=== PATIENT | female | born 1965 | race Caucasian/White ===

== ENCOUNTER → 2017-01-31 | Outpatient (CLI) | payer BC ==
--- NOTE | 2017-02-01 14:54 | MAMMOGRAPHY REPORT ---
ULTRASOUND OF BOTH BREASTS: 01/31/2017 CLINICAL HISTORY: Follow-up bilateral ultrasound for multiple bilateral hypoechoic solid versus cyst ic benign-appearing masses in the breasts seen on prior whole breast screening ultrasound. COMPARISON: Comparison is made to exams dated: 08/02/2016 ultrasound, 07/19/2016 ultrasound, 07/19/20 16 mammogram, 05/05/2011 mammogram - [facility], and 05/23/2008. FINDINGS: Real-time high-resolution ultrasound was performed in each breast, with particular attent ion to the left 1:00, 3:00, 4:00, 6:00, 8:00 axes, and also the right 12:00, 2:00, 7:00 and 11:00 ax es. In the left 1:00 breast, 1 cm from the nipple, there is a lobulated hypoechoic solid versus cys tic mass measuring 5.1 x 4.0 x 7.4 mm, this was previously labeled 12:00 and measured 5.3 x 3.0 x 5. 3 mm. In the 3:00 periareolar left breast, a predominantly cystic anechoic mass with internal nonva scular septations measures 5.0 x 5.4 x 8.5 mm, previously 4.3 x 5.7 x 5.8 mm. A benign anechoic cys t is identified in the 4:00 periareolar left breast measuring 5.2 mm. Another lobulated anechoic be nign simple cyst is seen in the 6:00 periareolar left breast measuring 5.5 mm. There is a lobulated hypoechoic possible cyst cluster in the 8:00 periareolar left breast measuring 9.0 x 4.5 x 7.5 mm, previously measured 9.4 x 3.8 x 8.5 mm. Another possible cyst cluster in the 12:00 left breast, 1 c m from the nipple, measuring 6.8 x 6.0 x 9.4 mm. This was not definitely seen on the prior exam. In the right breast 11 to 12:00 axis, 2 cm from the nipple (previously labeled 11:00), there is a lo bulated predominantly anechoic cystic appearing mass measuring 9.0 x 4.6 x 5.0 mm, this previously m easured 8.8 x 4.9 x 8.8 mm. Another predominantly anechoic cyst with thin internal nonvascular sept ations is seen in the 12:00 periareolar right breast measuring 5.0 x 2.7 x 4.7 mm, previously 4.8 x 2.9 x 5.5 mm. A lobulated oval isoechoic and hypoechoic solid versus cystic mass in the 2:00 right breast, 1 cm from the nipple measures 6.2 x 2.6 x 8.2 mm, previously 5.1 x 3.5 x 10.2 mm. 2 adjacen t probable cyst clusters in the 7:00 right breast, 2 cm from the nipple are again seen. The first m easures 7.1 x 3.4 x 6.8 mm, and the second is smaller in size measuring 4.9 mm. IMPRESSION: ACR-BI-RADS CATEGORY 3: PROBABLY BENIGN - FOLLOW-UP RECOMMENDED 1. Overall, there are multiple anechoic and hypoechoic benign appearing masses scattered throughout the breasts. All of the masses are stable to decreased in size except for a new mass visualized in the 12:00 left breast, 1 cm from the nipple. Although this appearance is similar to the other kartik gn appearing solid versus cystic masses scattered bilaterally, a very short follow-up targeted ultra sound is recommended in 3 months. The patient is also reporting focal pain in the right breast. Th erefore, bilateral mammograms including tomosynthesis images and repeat targeted ultrasound in the l eft 12:00 breast is recommended. The other benign appearing masses within each breast, detailed abo ve can also be followed at that time (30 minutes). These results and recommendations were discussed with the patient at the time of the exam. Keely Yañez M.D. ay/:02/01/2017 13:51:58 Mathematics Technician: Dr. Keely Yañez, [facility] letter sent: Follow Up Recommended 3 BI-RADS Code: ACR-BI-RADS Category 3: Probably Benign
== END ==
LOC: C.MAMM 09:04
PROVIDERS: ATTEND Obstetrics & Gynecology
DX: N63 Unspecified lump in breast (principal)

== ENCOUNTER → 2017-05-09 | Outpatient (CLI) | payer BC ==
--- NOTE | 2017-05-15 13:49 | MAMMOGRAPHY REPORT ---
BILATERAL DIGITAL DIAGNOSTIC MAMMOGRAM TOMOSYNTHESIS WITH CAD AND TARGETED BILATERAL ULTRASOUND: 05/09 CLINICAL HISTORY: Follow-up of probably benign hypoechoic solid versus cystic masses in both breasts on prior ultrasound, particular attention to 12:00 axis and in the area of a newly visualized benign appearing mass. Also time of annual bilateral screening mammogram. TECHNIQUE: Bilateral breast tomosynthesis in addition to standard 2D mammography was performed. Curre nt study was also evaluated with a Computer Aided Detection (CAD) system. COMPARISON: Comparison is made to exams dated: 01/31/2017 ultrasound, 07/19/2016 ultrasound, 05/05/2011 mammogram, 08/02/2016 ultrasound - [facility], and 05/23/2008. BREAST COMPOSITION: The tissue of both breasts is heterogeneously dense, which may obscure small mas ses. FINDINGS: The breast parenchymal pattern is similar to prior mammograms. There are stable circumscri bed sub-centimeter masses in both breasts, best identified on the tomosynthesis images, not significa ntly changed compared to prior mammograms. There is a benign rim calcification in the medial right b reast. No suspicious spiculated or irregular mass, architectural distortion or cluster of new, suspi cious microcalcifications is seen. Targeted ultrasound was performed in both breasts. In the 12:00 left breast 1 cm from the nipple, th ere is a lobulated hypoechoic mass with tubular parallel anechoic spaces surrounding. This appears l ess prominent comparing to the prior ultrasound from January 2017 and measures 5.3 x 4.7 x 5.5 mm, previo usly 6.8 x 6.0 x 9.4 mm. Some of the differences in measurements may be contributed to measuring dodie hnique and although this is probably benign, another short interval follow-up targeted ultrasound is recommended to ensure longer stability. Other scattered cysts and benign-appearing complicated cysts and/or solid masses are seen in the left breast in particular within the 1:00 axis, 1 cm from the ni pple, there is a cyst with internal nonvascular septations measuring 6.2 x 3.4 x 6.0 mm. Another, ga nickolas cyst in the 3:00 periareolar left breast measures 5.4 x 4.9 x 7.4 mm. In anechoic predominantly cystic mass in the 4:00 periareolar left breast measures 5 mm. Another predominantly anechoic cyst i n the 6:00 periareolar left breast measures 6.1 x 3.4 x 4.8 mm. A parallel hypoechoic cystic mass wi th internal septations in the 8:00 periareolar left breast measures 7.3 x 2.8 x 8.1 mm. In the right 12:00 breast, 3 cm from the nipple, there is a complicated cyst with thin internal nonva scular septations measuring 9.1 x 4.1 x 5.9 mm. In anechoic cyst in the 12:[address] measures 4.9 x 3.0 x 5.1 mm. Another probable, gated cyst in the 2:00 periareolar right breast me asures 3.2 x 4.2 x 10.8 mm. A cluster of microcysts in the 7:00 right breast, 1 cm from the nipple m easures 8.6 x 3.2 x 6.4 mm. Another cyst with thin internal nonvascular septations in the 11:00 righ t breast, 2 cm from the nipple, measures 4.6 x 2.7 x 6.3 mm. None of the complicated cysts in either breast appears significantly increased in size compared to pr ior ultrasounds. Given the complicated nature, another short interval follow-up bilateral ultrasound is recommended in 6 month. IMPRESSION: ACR-BI-RADS CATEGORY 3: PROBABLY BENIGN, TARGETED ULTRASOUND ACR-BI-RADS CATEGORY 3: PRO BABLY BENIGN 1. Stable bilateral mammograms, without mammographic evidence of malignancy. A 1 year screening claudia mogram is recommended. 2. Decreased size and visual prominence of a hypoechoic solid versus solid and cystic mass in the 12 :00 left breast, currently measuring 5.3 x 4.7 x 5.5 mm, which could represent a cyst cluster or comp licated cyst. Another short interval follow-up targeted ultrasound is recommended to ensure longer s tability in 6 months. 3. Overall stable size and appearance of benign-appearing complicated cysts and/or solid masses scat tered in both breasts, which appears similar to prior ultrasounds. Another six-month follow-up bilat era whole breast ultrasound (30 minutes), with particular attention to the left 12:00, 1:00, 3:00, 4 :00, 6:00, 8:00 and right 12:00, 2:00, 7:00 and 11:00 axes is recommended. These results and recommendations were discussed with the patient at the time of the exam. Approximately 10% of breast cancers are not detected with mammography. A negative mammographic report should not delay biopsy if a clinically suggestive mass is present. Keely Yañez M.D. ay/:05/15/2017 08:16:04 Electromechanical Equipment Assembler: Shelley REESE(Ozzie)(Anabel), [facility] letter sent: Follow Up Recommended 3 BI-RADS Code: ACR-BI-RADS Category 3: Probably Benign Ultrasound BI-RADS: ACR-BI-RADS Category 3: Pr obably Benign
== END | disposition home or self-care (01) ==
LOC: C.MAMM 09:03
PROVIDERS: ATTEND Obstetrics & Gynecology
DX: N63 Unspecified lump in breast (principal)

== ENCOUNTER → 2017-11-28 | Outpatient (CLI) | payer OTHER ==
--- NOTE | 2017-11-29 15:37 | MAMMOGRAPHY REPORT ---
ULTRASOUND OF BOTH BREASTS: 11/28/2017 CLINICAL HISTORY: Follow-up bilateral whole breast ultrasound to ensure stability of multiple cysts a nd benign-appearing masses scattered in both breasts. COMPARISON: Comparison is made to exams dated: 05/09/2017 ultrasound, 01/31/2017 ultrasound, 6 ultrasound, 07/19/2016 ultrasound, 07/19/2016 mammogram, and 05/05/2011 mammogram - [facility]. FINDINGS: Real-time high resolution sonographic evaluation was performed throughout each breast. The breast parenchymal echotexture is heterogeneousdense. In the 12:00 left breast, 1 cm from the nipp le, there is a lobulated and circumscribed hypoechoic and anechoic solid versus cystic mass, measurin g 6.0 x 3.7 x 7.6 mm. In the 1:00 left breast a benign, morphologically normal intramammary lymph no de is identified. In the 3:00 left breast, 1 cm from the nipple, there is a predominantly anechoic c yst with thin internal nonvascular septations, measuring 6.4 x 4.9 x 11.8 mm. An isoechoic solid gala konstantin cystic mass with posterior acoustic enhancement and circumscribed borders is seen in the 3:00 per iareolar left breast measuring 4.3 x 3.1 x 4.5 mm. There is another probable complicated cyst that i s predominantly anechoic with a thin internal nonvascular septation in the 4:[address] measuring 4.7 x 4.0 x 6.7 mm. A predominantly anechoic cyst with multiple internal nonvascular se ptations and/or debris in the 5:00 to 6:00 periareolar left breast measures 10.7 x 3.2 x 6.3 mm. In the 9:00 periareolar left breast there is a hypoechoic solid versus cystic benign-appearing mass vers us cystic cluster measuring 8.6 x 4.3 x 6.1 mm. In the right 12:00 axis, 3 cm from the nipple, there is a predominantly anechoic cyst with internal d ebris and nonvascular septations measuring 10.7 x 3.7 x 6.0 mm. Another predominantly anechoic cyst in the 12:00 periareolar right breast measures 4.9 x 3.2 x 5.0 mm. A mixed isoechoic and anechoic cy st in the 2:00 periareolar right breast measures 3.5 x 4.9 x 4.4 mm. In the 3:00 right breast, 3 cm from the nipple, there is a small cluster of cysts versus cyst with thin internal nonvascular septati ons measuring 6.0 x 2.9 x 3.8 mm. Another probable microcyst cluster in the 7:00 right breast, 1 cm from the nipple measures 8.6 x 3.5 x 7.5 mm. There is an anechoic benign simple cyst in the 9:00 rig ht breast, 1 cm from the nipple, measuring 8.7 x 3.8 x 7.5 mm. An adjacent cyst cluster versus compl icated cyst in the 9:00 axis, 1 cm from the nipple measures 7.5 x 6.8 mm. All of the above findings have a probably benign appearance and most likely represent cysts, microcys tic clusters and complicated cysts. Although some of the previously observed cysts are no longer see n, there is a newly visualized probable microcystic cluster in the 3:00 periareolar left breast, for which a repeat targeted ultrasound in 6 months, at the time of annual bilateral mammography is recomm ended. At that time, the other probable cysts clusters can be reassessed as that will marked the 2 y ear follow-up point to confirm benignity of many of the above described masses. IMPRESSION: ACR-BI-RADS CATEGORY 3: PROBABLY BENIGN - FOLLOW-UP RECOMMENDED 1. There are multiple bilateral simp cysts, complicated cysts, microcyst clusters and benign-appeari ngle solid versus cystic masses in both breasts on ultrasound, most compatible with fibrocystic regan e. A six-month follow-up bilateral ultrasound is recommended to ensure at least 2 years of stability to confirm benignity (30 minutes). 2. Annual bilateral screening tomosynthesis mammography will be due at that time. 3. There is a newly visualized benign-appearing isoechoic and anechoic solid versus cystic mass in t he 3:00 periareolar left breast that has a similar appearance to the other bilateral sonographic mass es. However, given that it is newly visualized with ultrasound, particular attention with targeted u ltrasound is recommended at the next six-month follow-up. These results and recommendations were discussed with the patient at the time of the exam. She is te ntatively scheduled a follow-up appointment prior to leaving the department. Keely Yañez M.D. ay/:11/28/2017 20:33:20 Machine Setter And Repairer: Arlen EDWARD)(Anabel), [facility] letter sent: Follow Up Recommended 3 BI-RADS Code: ACR-BI-RADS Category 3: Probably Benign
== END | disposition home or self-care (01) ==
LOC: C.MAMM 08:23
PROVIDERS: ATTEND Obstetrics & Gynecology
DX: N60.11 Diffuse cystic mastopathy of right breast (principal); N60.12 Diffuse cystic mastopathy of left breast; N63.10 Unspecified lump in the right breast, unspecified quadrant; N63.20 Unspecified lump in the left breast, unspecified quadrant

== ENCOUNTER 2020-11-30 10:43 | Inpatient (IN) ==
[2020-11-30] MEDS ORDERED: SODIUM CHLORIDE 0.9% 1000ML 1,000 ML IV ONE (11:15)
[2020-11-30] MEDS ORDERED: DEXAMETHASONE SOD INJ 10 MG/ML VIAL IV ONE (11:15)
[2020-11-30] MEDS ORDERED: ACETAMINOPHEN 325 MG TAB PO STA (11:15)
--- NOTE | 2020-11-30 11:19 | Emergency Department Note ---
Impression & Plan Pneumonia due to COVID-19 virus, Hypoxia, Multifocal pneumonia, Electrolyte abnormality ED Provider Note NAME: SANDEEP ECHAVARRIA AGE: 54 SEX: F : 1965 ARRIVES VIA: Walk-In INFORMANT: Patient ED PROVIDER(S): Los Rodgers DO CHIEF COMPLAINT: weak and shortness of breath HPI: Patient is a 54-year-old female who presents ER short of breath. She tested positive for Covid over a week ago. Her symptoms started just under 2 weeks ago with weakness and loss of taste and smell. She admits to shortness of breath which has been getting worse. She denies any belly pain but does admit to some diarrhea. Denies any dysuria, urgency or frequency. No other exace rbating or remitting factors. She has been taking care of her father who she also brought in today with a similar symptoms. She also admits to persistent fevers high as of 104. ROS: See above HPI for pertinent positives & negatives. A total of 10 systems reviewed and were otherwise negative. PAST MEDICAL HISTORY:See Below PAST SURGICAL HISTORY:See Below FAMILY HISTORY:See Below SOCIAL HISTORY:See Below HOME MEDICATIONS:See Below ALLERGIES:See Below VITALS:See Below PHYSICAL EXAMINATION: GENERAL: Sitting up in bed, alert, disheveled on 4 L nasal cannula EYE EXAM: normal conjunctiva. OROPHARYNX: no exudate, no erythema, lips, buccal mucosa, and tongue normal and mucous membranes are moist NECK: supple, no nuchal rigidity, no adenopathy, non-tender LUNGS: Clear to auscultation. Normal chest wall mechanics HEART: Tachycardic, S1 normal and S2 normal ABDOMEN: abdomen soft, non-tender, normo-active bowel sounds, no masses, no rebound or guarding. BACK: Back is symmetrical on inspection and there is no deformity, no midline tenderness, no CVA tenderness. SKIN: no rashes and no bruising UPPER EXTREMITIES: upper extremities are grossly normal. LOWER EXTREMITIES: No pitting edema. Calves are equal bilateral NEURO EXAM: Normal sensorium, cranial nerves II-XII grossly intact, normal speech, no gross weakness of arms, no gross weakness of legs. MEDICAL DECISION MAKING: Patient is a 54-year-old female with no significant past medical history the presents the ER Covid positive short of breath feeling weak and having fevers. Upon arrival she was found to be hypoxic at 82% on room air. She was placed on 3 to 4 L nasal cannula and remained on this throughout her stay in the ER. IV was established blood work was obtained. Labs showed a mild leukocytosis of 12,000 and a thrombocytosis of 600. D-dimer was elevated and consequently CT angio was performed and showed a multifocal pneumonia. BMP with mild hypokalemia. LFTs bilirubin and troponin was negative. Pro-Duran was slightly elevated 1.1. Patient was Covid positive. Chest x-ray confirmed infiltrates. Patient was given fluids, oxygen and steroids. Patient was updated bedside admitted to the hospitalist for further work-up. Triage Nursing notes reviewed. Limited review of prior medical records performed Vital Signs: reviewed and remarkable for tachycardic and hypoxic Differential diagnosis: Differential diagnoses includes but is not limited to pneumonia, bronchitis, COPD/Asthma exacerbation, pneumothorax, pulmonary embolism, congestive heart failure, acute coronary syndrome ER treatment provided: See below Diagnostics interpreted by me: ECG: Sinus tachycardia rate of 112 Normal axis No PVCs QTC 447 Cardiac Monitoring: An order was placed for continuous cardiac monitoring. The monitor shows a rate of 121 with sinus rhythm. Laboratory studies: As stated above and show below. Imaging studies: CT Angio of the chest shows multifocal infiltrates Portable AP upright 1 view of the chest shows multiple focal infiltrates Consultation(s): Discussed with Dr. Alan Hui for further evaluation Procedures: none Critical Care: I have personally spent 31 minutes of critical care time in the direct management of this patient. This includes bedside care, interpretation of diagnostic studies, and testing, discussion with consultants, patient, and family members, and other required patient management activities. This 31 minutes is in excess of all separately billable procedures. Past Med/Surg History Medical History (Updated 11/30/20 @ 16:42 by Los Rodgers DO) No pertinent past medical history Surgical History (Updated 11/30/20 @ 15:00 by Alan Hui MD) History of delivery History of tonsillectomy Social History (Updated 11/30/20 @ 15:00 by Alan Hui MD) Smoking Status: Never smoker Hx Alcohol Use: No Preferred Language: Trinidadian Feels Safe at Home: Yes Allergies Allergies Allergy/AdvReac Type Severity Reaction Status Date / Time No Known Allergies Allergy Verified 11/30/20 11:17 Home Meds Home Medications Medication Instructions Recorded Confirmed C-[id number]-[id number] 2 tab PO UD 11/30/20 11/30/20 [Immune Support Complex] acetaminophen [Tylenol Extra 500 mg PO Q6H PRN 11/30/20 11/30/20 Strength] Results & Data (ED) Vital Signs Vital Signs - 24 hr 11/30/20 10:50 11/30/20 11:00 11/30/20 11:06 Temperature 37.5 C Temperature Source Temporal Artery Scan Pulse Rate 130 H 113 H Pulse Rate from SpO2 Sensor 113 H Respiratory Rate 20 30 H Respiratory Effort / Characteristics Non-Labored Respiratory Depth Normal Respiratory Pattern Regular Blood Pressure 172/101 H 163/97 H Blood Pressure Mean 124 119 Blood Pressure Position Sitting Pulse Oximetry 82 L 84 L 95 Oxygen Delivery Method Room Air Room Air Nasal Cannula Oxygen Flow Rate 4 Sepsis Recent Fever Within 48 Hours Yes Sepsis New/Unexplained Change in Mental Status No Sepsis Action Taken by Nursing No Action Required 11/30/20 11:11 11/30/20 11:12 11/30/20 11:24 Temperature 37.5 C Temperature Source Oral Pulse Rate 113 H Pulse Rate from SpO2 Sensor 114 H Respiratory Rate 27 H Respiratory Effort / Characteristics Respiratory Depth Respiratory Pattern Blood Pressure 151/89 H Blood Pressure Mean 109 Blood Pressure Position Pulse Oximetry 96 96 Oxygen Delivery Method Nasal Cannula Nasal Cannula Oxygen Flow Rate 4 4 Sepsis Recent Fever Within 48 Hours Sepsis New/Unexplained Change in Mental Status Sepsis Action Taken by Nursing 11/30/20 11:31 11/30/20 12:00 11/30/20 12:30 Temperature Temperature Source Pulse Rate 108 H 102 H 98 H Pulse Rate from SpO2 Sensor 104 H 99 H Respiratory Rate 28 H 26 H 26 H Respiratory Effort / Characteristics Respiratory Depth Respiratory Pattern Blood Pressure 158/93 H 149/77 H 143/88 H Blood Pressure Mean 114 101 106 Blood Pressure Position Pulse Oximetry 93 94 Oxygen Delivery Method Nasal Cannula Nasal Cannula Oxygen Flow Rate 4 4 Sepsis Recent Fever Within 48 Hours Sepsis New/Unexplained Change in Mental Status Sepsis Action Taken by Nursing 11/30/20 13:21 11/30/20 13:30 Temperature Temperature Source Pulse Rate Pulse Rate from SpO2 Sensor 97 H 99 H Respiratory Rate 22 24 Respiratory Effort / Characteristics Respiratory Depth Respiratory Pattern Blood Pressure 156/88 H 169/92 H Blood Pressure Mean 110 117 Blood Pressure Position Pulse Oximetry 95 92 Oxygen Delivery Method Nasal Cannula Nasal Cannula Oxygen Flow Rate 4 4 Sepsis Recent Fever Within 48 Hours Sepsis New/Unexplained Change in Mental Status Sepsis Action Taken by Nursing Laboratory Data Result diagrams: 11/30/20 11:30 11/30/20 11:30 Lab Results 11/30/20 11/30/20 11/30/20 Range/Units 11:30 11:30 11:30 WBC 12.74 H (4.8-10.8) K/uL RBC 4.29 (4.2-5.4) M/uL Hgb 13.2 (12.0-16.0) g/dL Hct 38.0 (37-47) % MCV 88.6 (80-100) fL MCH 30.8 (25-34) pg MCHC 34.7 (32-36) g/dL RDW Std Deviation 41.2 (36.4-46.3) fL RDW Coeff of [place] 12.9 (11.5-14.5) % Plt Count 633 H (130-400) K/uL MPV 9.7 (7.4-10.4) fL Immature Gran % (Auto) 0.8 % Neut % (Auto) 81.9 % Lymph % (Auto) 12.0 % [place] % (Auto) 5.2 % Eos % (Auto) 0.0 % Baso % (Auto) 0.1 % Neut # (Auto) 10.44 H (1.4-6.5) K/uL Lymph # (Auto) 1.53 (1.2-3.4) K/uL [place] # (Auto) 0.66 H (0.11-0.59) K/uL Eos # (Auto) 0.00 (0-0.5) K/uL Baso # (Auto) 0.01 (0-0.2) K/uL Immature Gran # (Auto) 0.10 H (0.00-0.02) K/uL D-Dimer 3830 H* (0-500) ug/L FEU Sodium 135 L (136-145) mmol/L Potassium 3.2 L (3.5-5.1) mmol/L Chloride 97 L (98-107) mmol/L Carbon Dioxide 23 (21-32) mmol/L Anion Gap 15.0 H (3-11) BUN 9 (7-18) mg/dl Creatinine 0.72 (0.6-1.2) mg/dl Est Cr Clr Drug Dosing 71.0 ml/min Est GFR ( Amer) 108.5 Est GFR (Non-Af Amer) 93.6 BUN/Creatinine Ratio 12.1 (10-20) Glucose 112 H (70-99) mg/dl Calcium 9.1 (8.5-10.1) mg/dl Total Bilirubin 0.7 (0.2-1) mg/dl AST 42 H (15-37) U/L ALT 14 (12-78) U/L Alkaline Phosphatase 84 (45-117) U/L Troponin I < 0.015 (0-0.045) ng/ml Total Protein 8.7 H (6.4-8.2) gm/dl Albumin 2.5 L (3.4-5.0) gm/dl Globulin 6.2 H (2.5-4.0) gm/dl Albumin/Globulin Ratio 0.4 L (0.9-2) Lipase 236 (73-393) U/L Procalcitonin (0-0.5) ng/ml COVID-19 Eval Order SARS-CoV-2 (PCR) (Negative) Influenza Type A (PCR) (Neg) Influenza Type B (PCR) (Neg) RSV (RT-PCR) (Neg) 11/30/20 11/30/20 11/30/20 Range/Units 11:30 11:30 11:30 WBC (4.8-10.8) K/uL RBC (4.2-5.4) M/uL Hgb (12.0-16.0) g/dL Hct (37-47) % MCV (80-100) fL MCH (25-34) pg MCHC (32-36) g/dL RDW Std Deviation (36.4-46.3) fL RDW Coeff of [place] (11.5-14.5) % Plt Count (130-400) K/uL MPV (7.4-10.4) fL Immature Gran % (Auto) % Neut % (Auto) % Lymph % (Auto) % [place] % (Auto) % Eos % (Auto) % Baso % (Auto) % Neut # (Auto) (1.4-6.5) K/uL Lymph # (Auto) (1.2-3.4) K/uL [place] # (Auto) (0.11-0.59) K/uL Eos # (Auto) (0-0.5) K/uL Baso # (Auto) (0-0.2) K/uL Immature Gran # (Auto) (0.00-0.02) K/uL D-Dimer (0-500) ug/L FEU Sodium (136-145) mmol/L Potassium (3.5-5.1) mmol/L Chloride (98-107) mmol/L Carbon Dioxide (21-32) mmol/L Anion Gap (3-11) BUN (7-18) mg/dl Creatinine (0.6-1.2) mg/dl Est Cr Clr Drug Dosing ml/min Est GFR ( Amer) Est GFR (Non-Af Amer) BUN/Creatinine Ratio (10-20) Glucose (70-99) mg/dl Calcium (8.5-10.1) mg/dl Total Bilirubin (0.2-1) mg/dl AST (15-37) U/L ALT (12-78) U/L Alkaline Phosphatase (45-117) U/L Troponin I (0-0.045) ng/ml Total Protein (6.4-8.2) gm/dl Albumin (3.4-5.0) gm/dl Globulin (2.5-4.0) gm/dl Albumin/Globulin Ratio (0.9-2) Lipase (73-393) U/L Procalcitonin 1.19 H (0-0.5) ng/ml COVID-19 Eval Order CovFluRsv at [facility] SARS-CoV-2 (PCR) POSITIVE A* (Negative) Influenza Type A (PCR) Negative (Neg) Influenza Type B (PCR) Negative (Neg) RSV (RT-PCR) Negative (Neg) Administered Medications Discontinued Medications Acetaminophen (Acetaminophen 325 Mg Tab) 650 mg PO NOW STA Stop: 11/30/20 11:16 Last Admin: 11/30/20 11:29 Dose: 650 mg Documented by: [id number] Dexamethasone (Dexamethasone Sod Inj 10 Mg/Ml Vial) 6 mg IV NOW ONE Stop: 11/30/20 11:16 Last Admin: 11/30/20 11:29 Dose: 6 mg Documented by: [id number] Sodium Chloride (Nss 1000ml) 1,000 mls @ 999 mls/hr IV .Q1H1M ONE Stop: 11/30/20 12:15 Last Infusion: 11/30/20 12:31 Dose: 0 mls/hr Documented by: [id number] Admin: 11/30/20 11:29 Dose: 999 mls/hr Documented by: [id number] Ceftriaxone Sodium (Rocephin) 2,000 mg in 70 mls @ 140 mls/hr IV NOW STA Stop: 11/30/20 15:19 Last Infusion: 11/30/20 15:45 Dose: 0 mls/hr Documented by: [id number] Admin: 11/30/20 15:10 Dose: 140 mls/hr Documented by: [id number] Ioversol (Optiray 320 125ml) 118 ml IV ONCE ONE Stop: 11/30/20 12:51 Last Admin: 11/30/20 12:50 Dose: 118 ml Documented by: [id number] Potassium Chloride (Potassium Chloride Crtab 20 Meq Tabcr) 40 meq PO NOW STA Stop: 11/30/20 13:39 Last Admin: 11/30/20 13:48 Dose: 40 meq Documented by: [id number] Discharge Plan Visit Data Chief Complaint: Illness Stated Complaint: COVID+, CHILLS, FEVER ED Provider: Los Rodgers Discharge Problem: Pneumonia due to COVID-19 virus, Hypoxia, Multifocal pneumonia, Electrolyte abnormality Discharge Instructions Interventions: ED Discharge Assessment Last Done: 11/30/20 15:17
[2020-11-30 12:11] LABS: Basophils # (auto) 0.01 K/uL (0-0.2); Basophils % (auto) 0.1 %; Hemoglobin 13.2 g/dL (12.0-16.0); Immature Granulocytes % (auto) 0.8 %; Lymphocytes # (auto) 1.53 K/uL (1.2-3.4); Mean Corpuscular Hemoglobin 30.8 pg (25-34); Mean Corpuscular Hgb Conc 34.7 g/dL (32-36); Mean Corpuscular Volume 88.6 fL (80-100); Mean Platelet Volume 9.7 fL (7.4-10.4); Monocytes # (auto) 0.66 K/uL (0.11-0.59); Monocytes % (auto) 5.2 %; Neutrophils # (auto) 10.44 K/uL (1.4-6.5); Neutrophils % (auto) 81.9 %; Platelet Count 633 K/uL (130-400); RDW Coefficient of Variation 12.9 % (11.5-14.5); RDW Standard Deviation 41.2 fL (36.4-46.3); Red Blood Count 4.29 M/uL (4.2-5.4); White Blood Count 12.74 K/uL (4.8-10.8)
--- NOTE | 2020-11-30 12:17 | XRay Report ---
SINGLE VIEW CHEST CLINICAL HISTORY: Atypical chest pain. FINDINGS: An AP, portable, upright chest radiograph is compared to study dated 10/25/2019. The cardiome diastinal silhouette is unremarkable. Multifocal airspace consolidation is seen throughout both lungs . No large pleural effusion or pneumothorax is identified. The bony thorax is grossly intact. Calcifi c tendinopathy is noted in both shoulders. IMPRESSION: Multifocal airspace consolidation is seen throughout both lungs. This is atypical in appe arance for pneumonia and radiographic follow-up to resolution is recommended ACT 112: Negative or not required by law. Electronically signed by: Omid Allen M.D. 11/30/2020 12:15 PM
[2020-11-30 12:28] LABS: D Dimer 3830 ug/L FEU (0-500)
[2020-11-30 12:36] LABS: Alanine Aminotransferase 14 U/L (12-78); Albumin Level 2.5 gm/dl (3.4-5.0); Aspartate Aminotransferase 42 U/L (15-37); BUN Creatinine Ratio 12.1 (10-20); Blood Urea Nitrogen 9 mg/dl (7-18); Calcium 9.1 mg/dl (8.5-10.1); Carbon Dioxide 23 mmol/L (21-32); Chloride 97 mmol/L (98-107); Est GFR (African American) 108.5; Est GFR (Non-African American) 93.6; Glucose 112 mg/dl (70-99); Influenza A virus by PCR Negative (Neg); Influenza B virus by PCR Negative (Neg); Lipase 236 U/L (73-393); Potassium 3.2 mmol/L (3.5-5.1); RSV by PCR Negative (Neg); Sodium 135 mmol/L (136-145)
[2020-11-30 12:41] LABS: Albumin Globulin Ratio 0.4 (0.9-2); Alkaline Phosphatase 84 U/L (45-117); Bilirubin,Total 0.7 mg/dl (0.2-1); Globulin 6.2 gm/dl (2.5-4.0); Total Protein 8.7 gm/dl (6.4-8.2); Troponin I < 0.015 ng/ml (0-0.045)
[2020-11-30 12:44] LABS: SARS CoV2 RNA(COVID-19) InHosp POSITIVE (Negative)
[2020-11-30] MEDS ORDERED: OPTIRAY 320 125ml IV ONE (12:50)
--- NOTE | 2020-11-30 13:17 | CT Scan Report ---
CT ANGIOGRAM OF THE CHEST CLINICAL HISTORY: Shortness of breath. Covid patient. Chills, fatigue. Possible pulmonary embolism COMPARISON STUDY: Chest x-ray dated 11/30/2020 TECHNIQUE: Following the IV administration of 118 mL of Optiray-320, CT angiogram of the thorax was p erformed from the thoracic inlet to the lung bases utilizing the pulmonary embolus protocol. Images a re reviewed in the axial, sagittal, and coronal planes. IV contrast was administered without complica tion. MIP imaging was performed. A dose lowering technique was utilized adhering to the principles o f ALARA. CT DOSE: 275.25 mGycm FINDINGS: There is possible hepatic steatosis. There is mild mediastinal and hilar lymphadenopathy, likely reactive. There was no evidence of thoracic aortic dilatation. There were no pulmonary artery filling defects to indicate acute pulmonary embolism. There is a trace right pleural effusion There are extensive multifocal groundglass pulmonary opacities. The findings are consistent with alth ough not specific for Covid 19 pneumonia IMPRESSION: 1. No evidence of acute pulmonary embolism 2. Extensive bilateral groundglass pulmonary opacities, finding consistent with a multifocal pneumoni a 3. Mild mediastinal and hilar lymphadenopathy likely reactive ACT 112: Negative or not required by law. Electronically signed by: Foreign Patterson M.D. 11/30/2020 1:16 PM
[2020-11-30] MEDS ORDERED: POTASSIUM CHLORIDE CRTAB 20 MEQ TABCR PO STA (13:38)
--- NOTE | 2020-11-30 13:50 | History & Physical Report ---
Date of Service November 30, 2020 Assessment & Plan (1) Pneumonia due to COVID-19 virus: Covid isolation precautions Dexamethasone 6 mg IV for 10 days (2) Multifocal pneumonia: Elevated procalcitonin and neutrophil count suggestive of secondary bacterial pneumonia Ceftriaxone 2 g IV daily Azithromycin 500 mg IV now then 250 mg IV for 4 days (3) Hypoxia: Secondary to COVID-19 and bacterial pneumonia as above. Aim O2 sats > 90% (4) Electrolyte abnormality: Secondary to diarrhea and poor oral intake. KCl 40 M EQ p.o. given in ER. We will continue gentle rehydration with NSS + KCl 40meq IV @ 100 ml/hr 1L (5) DVT prophylaxis: Given elevated D-dimer will give increased dose of Lovenox with 40 mg SQ twice daily Admission and Anticipated Discharge Date Admission Date: November 30, 2020 History of Present Illness Chief Complaint: Shortness of breath Primary Care Provider: Oswaldo Victoria Terri Montague is a 54-year-old female who presents to the ER with shortness of breath, fatigue, generalized muscle aches, nausea and productive cough. She tested positive on November 17 and is mainly here to bring her father who is also Covid positive but wanted to be seen to as she has just not been getting better. Mainly short of breath on exertion and has not been able to do her usual activities around the house. However she does note she is improved since this time last week. She has not been measuring her oxygen saturations at home. Symptoms include shortness of breath (mainly on exertion), productive cough, poor appetite, diarrhea, myalgias, fatigue. She denies any nausea, vomiting, nasal congestion, confusion, chest or abdominal pain. In the ER SARS-CoV-2 PCR positive. D-dimer elevated at [address] angiogram which showed no pulmonary embolism but extensive bilateral groundglass pulmonary opacities consistent with multifocal pneumonia. 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 Beliefs That Will Affect Care: None Current Living Situation: Family Feels Safe at Home: Yes Safety Concerns: Feels Safe At This Time Assistive Devices: Oxygen - Continuous Review of Systems Review of Systems: All systems reviewed & are unremarkable except as noted in HPI & below Physical Exam Constitutional: WD/WN, vitals as above Eyes: + anicteric sclerae; normal pupil size ENMT: external ear and nose normal, oropharynx normal Neck: normal visual inspection and trachea midline Respiratory: normal respiratory effort, + cough and able to speak in complete sentences; no respiratory distress, no labored breathing, no retractions, does not use accessory muscles and not tachypneic Auscultation: + crackles (Coarse throughout); breath sounds present, no diminished lung sounds and no wheezes Cardiovascular: Rate/Rhythm: regular rate and regular rhythm Heart Sounds: no murmur Vessels: no JVD Extremities: normal capillary refill; no calf tenderness and no pedal edema Gastrointestinal (Abdomen): normal bowel sounds, soft, nontender, no hepatosplenomegaly Musculoskeletal: no cyanosis or clubbing, extremities motor strength 5/5 Skin: no rashes, warm and dry Neurologic: moves all extremities and awake; not confused Psychiatric: A+Ox3, euthymic affect Results & Data Results & Data ([facility]) Vital Signs (Past 12 Hours) Vital Signs Temp Pulse Resp BP Pulse Ox 11/30/20 13:30 24 169/92 H 92 11/30/20 13:21 22 156/88 H 95 11/30/20 12:30 98 H 26 H 143/88 H 94 11/30/20 12:00 102 H 26 H 149/77 H 93 11/30/20 11:31 108 H 28 H 158/93 H 11/30/20 11:24 113 H 27 H 151/89 H 96 03/15/21 11:12 96 11/30/20 11:11 37.5 C 11/30/20 11:06 113 H 30 H 163/97 H 95 11/30/20 11:00 84 L 11/30/20 10:50 37.5 C 130 H 20 172/101 H 82 L Diagnostic Findings SINGLE VIEW CHEST IMPRESSION: Multifocal airspace consolidation is seen throughout both lungs. This is atypical in appearance for pneumonia and radiographic follow-up to resolution is recommended CT ANGIOGRAM OF THE CHEST IMPRESSION: 1. No evidence of acute pulmonary embolism 2. Extensive bilateral groundglass pulmonary opacities, finding consistent with a multifocal pneumonia 3. Mild mediastinal and hilar lymphadenopathy likely reactive Medications Administered ER medications given: NSS 1 hour bolus Dexamethasone 6 mg IV Acetaminophen 650 mg as needed Potassium chloride 40 meq PO ECG Indication: SOB/dyspnea Rate (beats per minute): 112 Rhythm: sinus tachycardia Findings: no acute ischemic change Comparison ECG Date: no prior available Code Status & VTE Plan Code Status Full VTE Prophylaxis Plan VTE Prophylaxis will be ordered: Yes PG Care Time/CCT Total # of Minutes Spent Total Time Spent with Patient: Total time spent is greater than 50% in coordination of care (as documented) at patient's floor/unit and/or counseling patient: Coding Level of Care Code 61573 Initial Inpt Care Lvl 3 Diagnoses Pneumonia due to COVID-19 virus U07.1; J12.82 Multifocal pneumonia J18.9 Hypoxia R09.02 Electrolyte abnormality E87.8 DVT prophylaxis Z29.9
[2020-11-30] MEDS ORDERED: AZITHROMYCIN 500 MG in DEXTROSE 5% 250 ML IV STA (14:50)
[2020-11-30] MEDS ORDERED: cefTRIAXone SODIUM 2,000 MG/70 ML BAG IV STA (14:50)
[2020-11-30] MEDS ORDERED: ACETAMINOPHEN 325 MG TAB PO PRN (16:42)
[2020-11-30] MEDS ORDERED: ONDANSETRON INJ 2 MG/ML 2 ML VIAL IV PRN (16:42)
[2020-11-30] MEDS ORDERED: ALUMINUM/MAGNESIUM SUSP 30 ML UDC PO PRN (16:42)
[2020-11-30] MEDS ORDERED: POLYETHYLENE (MIRALAX) 17 GM PACK PO PRN (16:42)
[2020-11-30] MEDS ORDERED: POTASSIUM CHLORIDE 40 MEQ in SODIUM CHLORIDE 0.9% 1000ML 1,000 ML IV SCH (17:00)
[2020-11-30 17:43] LABS: Appearance Urine Clear (Clear); Bacteria Urine Automated Negative (Negative); Bilirubin Urine Negative (Negative); Blood Urine Trace (Negative); Cast Urine Automated 0 /lpf (0-5); Color Urine Yellow; Glucose Urine UA Negative (Negative); Ketones Urine 3+ (Negative); Leukocyte Esterase Urine Negative (Negative); Nitrite Urine Negative (Negative); Protein Urine Negative (Negative); RBC Urine Automated 0-4 /hpf (0-4); Specific Gravity Urine > 1.045 (1.000-1.030); Urobilinogen Urine Negative (Negative)
[2020-11-30] MEDS: ENOXAPARIN INJ 40 MG/0.4 ML SYR SQ SCH (20:18)
[2020-11-30] MEDS: guaiFENesin 600 MG TABCR PO SCH (20:18)
--- NOTE | 2020-11-30 21:43 | Electrocardiogram Report ---
Test Reason : Blood Pressure : / mmHG Vent. Rate : 112 BPM Atrial Rate : 112 BPM P-R Int : 172 ms QRS Dur : 082 ms QT Int : 328 ms P-R-T Axes : 067 012 052 degrees QTc Int : 447 ms Sinus tachycardia Otherwise normal ECG No previous ECGs available Confirmed by Omar Berg ([id number]) on 11/30/2020 9:42:33 PM Referred By: REFERRED SELF Confirmed By:Omar Berg
[2020-12-01 06:50] LABS: Basophils # (auto) 0.01 K/uL (0-0.2); Basophils % (auto) 0.1 %; Hematocrit (blood only) 35.7 % (37-47); Hemoglobin 12.1 g/dL (12.0-16.0); Immature Granulocytes # (auto) 0.15 K/uL (0.00-0.02); Immature Granulocytes % (auto) 1.7 %; Lymphocytes # (auto) 1.34 K/uL (1.2-3.4); Lymphocytes % (auto) 14.8 %; Mean Corpuscular Hemoglobin 30.8 pg (25-34); Mean Corpuscular Hgb Conc 33.9 g/dL (32-36); Mean Corpuscular Volume 90.8 fL (80-100); Mean Platelet Volume 9.5 fL (7.4-10.4); Monocytes % (auto) 5.5 %; Neutrophils # (auto) 7.07 K/uL (1.4-6.5); Neutrophils % (auto) 77.9 %; Platelet Count 557 K/uL (130-400); RDW Coefficient of Variation 12.9 % (11.5-14.5); RDW Standard Deviation 43.1 fL (36.4-46.3); Red Blood Count 3.93 M/uL (4.2-5.4); White Blood Count 9.07 K/uL (4.8-10.8)
[2020-12-01 07:29] LABS: Albumin Level 2.1 gm/dl (3.4-5.0); BUN Creatinine Ratio 19.7 (10-20); Calcium 8.7 mg/dl (8.5-10.1); Creatinine Clr Calc Pharmacy 85.7 ml/min; Est GFR (African American) 116.8; Est GFR (Non-African American) 100.8; Potassium 4.6 mmol/L (3.5-5.1)
[2020-12-01 07:33] LABS: Albumin Globulin Ratio 0.4 (0.9-2); Bilirubin,Total 0.4 mg/dl (0.2-1); C Reactive Protein 15.6 mg/dl (0-0.29); Globulin 5.5 gm/dl (2.5-4.0); Total Protein 7.6 gm/dl (6.4-8.2)
[2020-12-01] MEDS: guaiFENesin 600 MG TABCR PO SCH ×2 (07:55→19:46)
[2020-12-01] MEDS: ENOXAPARIN INJ 40 MG/0.4 ML SYR SQ SCH ×2 (07:56→19:47)
[2020-12-01] MEDS: dexAMETHasone 6 MG in SYRINGE 0 ML IV SCH (07:56)
[2020-12-01] MEDS ORDERED: DEXAMETHASONE SOD INJ 10 MG/ML VIAL IV SCH (09:00)
[2020-12-01] MEDS: AZITHROMYCIN 250 MG in DEXTROSE 5% 250 ML IV SCH (09:05)
--- NOTE | 2020-12-01 14:29 | Hospitalist Progress Note ---
Date of Service December 01, 2020 Assessment & Plan (1) Pneumonia due to COVID-19 virus: First symptoms on 11/15/2020. Outside of window for convalescent plasma or remdesivir. - Covid isolation precautions - Dexamethasone 6 mg IV for 10 days (End date: 12/09/2020) - Supplemental O2 to maintain O2 sat > 90%. (2) Multifocal pneumonia: Elevated procalcitonin and neutrophil count suggestive of secondary bacterial pneumonia. - Continue ceftriaxone 2 g IV daily x 5 days and azithromycin 500 mg IV now then 250 mg IV for 4 days - Leukocytosis improving. - Repeat procalcitonin tomorrow. (3) Hypoxia: Acute hypoxemic respiratory failure, secondary to COVID-19 and bacterial pneumonia as above. - Aim O2 sats > 90% (4) DVT prophylaxis: Lovenox with 40 mg SQ twice daily Admission and Anticipated Discharge Date Admission Date: November 30, 2020 Subjective Still with cough. No shortness of breath at rest, but with movement. Reports no fevers/chills, chest pain, abdominal pain, nausea, or vomiting. Physical Exam Constitutional: WD/WN, vitals as above Eyes: EOM intact bilaterally; no conjunctival abnormality ENMT: external ear and nose normal, oropharynx normal Neck: trachea midline, no thyromegaly normal visual inspection Respiratory: no respiratory distress and no labored breathing Auscultation: + crackles (Diffuse) Cardiovascular: Rate/Rhythm: regular rhythm and + tachycardic Heart Sounds: normal S1 and normal S2 Extremities: no edema Gastrointestinal (Abdomen): Inspection/Auscultation: abdomen normal to inspection; abdomen not distended Musculoskeletal: no cyanosis or clubbing, extremities motor strength 5/5 Skin: no rashes, warm and dry Neurologic: moves all extremities and awake Psychiatric: Orientation: alert, oriented to person and cooperative Results & Data Results & Data ([facility]) Vital Signs (Past 12 Hours) Vital Signs Temp Pulse Resp BP Pulse Ox Pulse Ox 12/01/20 11:00 36.8 C 108 H 16 128/80 90 12/01/20 08:17 91 12/01/20 08:00 36.9 C 71 16 156/78 H 93 PG Care Time/CCT Total # of Minutes Spent Total Time Spent with Patient: Total time spent is greater than 50% in coordination of care (as documented) at patient's floor/unit and/or counseling patient: Coding Level of Care Code 93007 Subseq Hosp Care Lvl 2 Diagnoses Pneumonia due to COVID-19 virus U07.1; J12.82 Multifocal pneumonia J18.9 Hypoxia R09.02 DVT prophylaxis Z29.9
[2020-12-01] MEDS: cefTRIAXone SODIUM 2,000 MG in DEXTROSE 5% 50 ML IV SCH (15:17)
[2020-12-02 07:26] LABS: Hematocrit (blood only) 33.7 % (37-47); Hemoglobin 11.3 g/dL (12.0-16.0); Mean Corpuscular Hemoglobin 30.5 pg (25-34); Mean Corpuscular Hgb Conc 33.5 g/dL (32-36); Mean Corpuscular Volume 91.1 fL (80-100); Mean Platelet Volume 9.6 fL (7.4-10.4); Platelet Count 622 K/uL (130-400); RDW Coefficient of Variation 12.9 % (11.5-14.5); RDW Standard Deviation 43.1 fL (36.4-46.3); White Blood Count 10.88 K/uL (4.8-10.8)
[2020-12-02 07:55] LABS: BUN Creatinine Ratio 25.1 (10-20); Calcium 8.8 mg/dl (8.5-10.1); Creatinine Clr Calc Pharmacy 75.9 ml/min; Est GFR (African American) 112.3; Est GFR (Non-African American) 96.9; Magnesium 2.5 mg/dl (1.8-2.4); Potassium 4.2 mmol/L (3.5-5.1)
[2020-12-02] MEDS: dexAMETHasone 6 MG in SYRINGE 0 ML IV SCH (08:20)
[2020-12-02] MEDS: ENOXAPARIN INJ 40 MG/0.4 ML SYR SQ SCH ×2 (08:20→20:35)
[2020-12-02] MEDS: AZITHROMYCIN 250 MG in DEXTROSE 5% 250 ML IV SCH (08:20)
[2020-12-02] MEDS: guaiFENesin 600 MG TABCR PO SCH ×2 (08:20→20:35)
[2020-12-02] MEDS: cefTRIAXone SODIUM 2,000 MG in DEXTROSE 5% 50 ML IV SCH (15:51)
--- NOTE | 2020-12-02 17:01 | Hospitalist Progress Note ---
Date of Service December 02, 2020 Assessment & Plan (1) Pneumonia due to COVID-19 virus: First symptoms on 11/15/2020. Outside of window for convalescent plasma or remdesivir. - Covid isolation precautions - Dexamethasone 6 mg IV for 10 days (End date: 12/09/2020) - Supplemental O2 to maintain O2 sat > 90%. - Stable today with some improvement. No change in steroid dose. Still needing ~5L NC. (2) Multifocal pneumonia: Elevated procalcitonin and neutrophil count suggestive of secondary bacterial pneumonia. - Continue ceftriaxone 2 g IV daily x 5 days and azithromycin 500 mg IV now then 250 mg IV for 4 days - Repeat procalcitonin on 12/02 down to 0.37 from 1.2 as hoped. (3) Hypoxia: Acute hypoxemic respiratory failure, secondary to COVID-19 and bacterial pneumonia as above. - Aim O2 sats > 90% (4) DVT prophylaxis: Lovenox with 40 mg SQ twice daily Admission and Anticipated Discharge Date Admission Date: November 30, 2020 Subjective Stable O2 needs today. Still with a cough. Very anxious about her father. Reports no fevers/chills, chest pain, abdominal pain, nausea, or vomiting. Physical Exam Constitutional: WD/WN, vitals as above Eyes: EOM intact bilaterally; no conjunctival abnormality ENMT: external ear and nose normal, oropharynx normal Neck: trachea midline, no thyromegaly normal visual inspection Respiratory: no respiratory distress and no labored breathing Auscultation: + crackles (Diffuse, but improved.) Cardiovascular: Rate/Rhythm: regular rhythm and + tachycardic Heart Sounds: normal S1 and normal S2 Extremities: no edema Gastrointestinal (Abdomen): Inspection/Auscultation: abdomen normal to inspection; abdomen not distended Musculoskeletal: no cyanosis or clubbing, extremities motor strength 5/5 Skin: no rashes, warm and dry Neurologic: moves all extremities and awake Psychiatric: Orientation: alert, oriented to person and cooperative Results & Data Results & Data ([facility]) Vital Signs (Past 12 Hours) Vital Signs Temp Pulse Resp BP Pulse Ox Pulse Ox 12/02/20 16:50 37.2 C 70 18 125/79 95 12/02/20 08:00 88 L PG Care Time/CCT Total # of Minutes Spent Total Time Spent with Patient: Total time spent is greater than 50% in coordination of care (as documented) at patient's floor/unit and/or counseling patient: Coding Level of Care Code 41919 Subseq Hosp Care Lvl 2 Diagnoses Pneumonia due to COVID-19 virus U07.1; J12.82 Multifocal pneumonia J18.9 Hypoxia R09.02 DVT prophylaxis Z29.9
[2020-12-03] MEDS: dexAMETHasone 6 MG in SYRINGE 0 ML IV SCH (08:51)
[2020-12-03] MEDS: AZITHROMYCIN 250 MG in DEXTROSE 5% 250 ML IV SCH (08:51)
[2020-12-03] MEDS: ENOXAPARIN INJ 40 MG/0.4 ML SYR SQ SCH ×2 (08:51→20:08)
[2020-12-03] MEDS: guaiFENesin 600 MG TABCR PO SCH ×2 (08:52→20:08)
--- NOTE | 2020-12-03 09:31 | Critical Care Consultation ---
Date of Consultation December 03, 2020 Assessment & Plan (1) Pneumonia due to COVID-19 virus: Reason Critically Ill: 54-year-old female without significant PMHx who was admitted on 11/30 for COVID-19 pneumonia and transferred to the ICU on 12/03 for worsening respiratory status secondary to this. Currently proning and hemodynamically stable on high-flow nasal cannula. Neuro - CAM ICU: POSITIVE - no other concerns at this time - continue to monitor CAM-ICU/mental status while in the ICU Cardiac - hemodynamically stable with appropriate BPs/HRs on high-flow nasal cannula - closely monitor on tele while in ICU Respiratory - COVID-19 pneumonia - worsening respiratory status secondary to this - AB.62/28/63/28 - respiratory alkalosis due to increased respiratory drive 2/2 hypoxia - CXR showing multifocal airspace consolidations suggestive of COVID-19 PNA, although mild leukocytosis with left shift and initial procalcitonin of 1.19 suggestive of superimposed bacterial PNA - currently satting 96-98% on high-flow nasal cannula (45L/min, .70 FiO2), FiO2 decreased and SpO2 improved since proned - continue proning and high-flow for now - follow closely for further decompensation in respiratory status - will plan on intubating the patient at that time - patient understands the benefits and risks of intubation; given her currently decompensating respiratory status, the patient consented to intubation if necessary - increased Dexamethasone to 20mg IV x5 days, followed by 10mg IV x5 days, given worsening respiratory status - continue Azithromycin/Ceftriaxone x5 days (today is day 3) to cover for superimposed bacterial pneumonia, given improvement in Procalcitonin from 1.19 --> 0.21 with abx GI - clear liquid diet RENAL/LYTES - No significant electrolyte derangement - Replace lytes as needed - No concerns at this time ENDO - SSI/basal dosing insulin, ICU hyperglycemia protocol HEME - Stable H&H - continue to monitor with serial CBCs ID - COVID-19 pneumonia, with possible superimposed bacterial pneumonia - continue Dexamethasone (day 3/10) as well as Azithromycin/Ceftriaxone (day 3/5), as mentioned above - Monitor fever curve LINES/IV ACCESS - PIVx2 intact DVT Prophylaxis: Lovenox 40mg SQ BID (COVID-19 high-intensity dosing) Code Status: Full code Thank you for allowing us to be part of this patient's care. Please refer to Dr. Carrillo's documentation for any further recommendations. (2) Hypoxia: (3) Multifocal pneumonia: Supervising Physician Co-Signing Physician Notes Dr. Morocho was resident physician during care of patient. I separately evaluated patient for muñiz portions of the history and the exam. I was present during the critical portion of medical decision making, and I discussed the case with the resident. I generally agree with the findings and plan. Had extensive discussion with patient regarding indications for intubation, she significantly wants to avoid being intubated, at this time as she becomes extremely short of breath with toileting, eating or similar we will proceed with intubation and mechanical ventilation. She would also be agreeable with tracheostomy for long-term mechanical ventilation should that be required. I have personally spent 65 minutes of critical care time in the direct management of this patient. This is a life/limb threatening event. This includes time spent evaluating patient, direct bedside care, chart review, placing orders, interpretation of diagnostic studies, discussion with consultants, patient, and/or family members regarding treatment decisions, as well as other required patient management activities. This time is exclusive of all separately billable procedures, and teaching time and separate from and in addition to any other critical care service time. History of Present Illness Reason for Consultation: worsening respiratory status due to COVID-19 PNA Requesting Physician: Brent Ramirez MD Attending Physician: Brent Ramirez MD History of Present Illness Terri Montague is a 54 yo previously healthy female who was admitted to [facility] on 11/30/2020 for COVID-19 pneumonia; we were consulted to transfer the patient to ICU for worsening respiratory status. As of late this morning (~1100), the patient denies shortness of breath on high-flow nasal cannula. She is able to speak in full sentences without losing her breath. Patient reports fever/chills and occasional cough but denies chest pain, palpitations, N/V, abdominal pain, rash. Allergies Allergy/AdvReac Type Severity Reaction Status Date / Time No Known Allergies Allergy Verified 11/30/20 11:17 Home Medications Medication Instructions Recorded Confirmed Type C-Zn-[id number].ginseng-bao [id number] 2 tab PO UD 11/30/20 11/30/20 History [Immune Support Complex] acetaminophen [Tylenol Extra 500 mg PO Q6H PRN 11/30/20 11/30/20 History Strength] Patient History Medical History (Updated 12/03/20 @ 17:04 by DEREK Redd) No pertinent past medical history Palliative care encounter Surgical History History of delivery History of tonsillectomy Social History Smoking Status: Never smoker Hx Alcohol Use: No Hx Substance Use: No Preferred Language: Malay Slat Grader Required: No Beliefs That Will Affect Care: None Current Living Situation: Family Feels Safe at Home: Yes Safety Concerns: Feels Safe At This Time Assistive Devices: Oxygen - Continuous Review of Systems Review of Systems: All systems reviewed & are unremarkable except as noted in HPI & below Physical Exam Physical Exam: General: A&Ox3. NAD. Patient in proned position in her ICU bed - high-flow nasal cannula in place HEENT: Atraumatic, normocephalic. Pulm: Decreased air entry with crackles present throughout bilateral lung durand, no wheezes, no increased work of breathing on current high-flow settings Cardiac: RRR, -mrg. Radial pulses intact and symmetrical. Abdominal: soft, non-tender, non-distended, BS x 4 Skin: warm, dry Results & Data Results & Data ([facility]) Vital Signs (Past 12 Hours) Vital Signs Temp Pulse Resp BP Pulse Ox Pulse Ox 12/03/20 08:00 89 L 12/03/20 07:35 37.3 C 96 H 21 131/80 93 12/03/20 06:38 93 12/03/20 06:34 80 18 92 12/03/20 06:10 88 L 12/03/20 05:25 36.6 C 77 18 145/82 H 86 L Resident Activity Tracking Resident Involvement: Resident Care Provided Care Provided: Adult Hospital Medicine
--- NOTE | 2020-12-03 10:00 | XRay Report ---
SINGLE VIEW CHEST CLINICAL HISTORY: Covid pneumonia. FINDINGS: An AP, portable, upright chest radiograph is compared to chest x-ray and chest CT dated 11/16. The cardiomediastinal silhouette is unremarkable. Multifocal airspace consolidation is seen t hroughout both lungs. No large pleural effusion or pneumothorax is identified. The bony thorax is lilliana ssly intact. Calcific tendinopathy is noted in both shoulders. IMPRESSION: Multifocal airspace consolidation is unchanged from previous and consistent with the repo rted history of a viral pneumonia ACT 112: Negative or not required by law. Electronically signed by: Omid Allen M.D. 12/03/2020 9:59 AM
[2020-12-03 10:09] LABS: Base Excess ABG 7.7 mEq/L (-9-1.8); HCO3 ABG 28 mmol/L (19-24); Oxygen Saturation ABG 95.3 % (90-95); PCO2 ABG 28 mmHg (35-46); PO2 ABG 63 mmHg (80-95)
[2020-12-03 10:12] LABS: Allen Test Pos (Pos)
[2020-12-03 10:21] LABS: pH ABG 7.62 (7.35-7.45)
[2020-12-03] MEDS ORDERED: ICU PROTOCOL FOR HYPERGLYCEMIA PRN (13:23)
[2020-12-03] MEDS ORDERED: ICU PROTOCOL FOR HYPERGLYCEMIA SCH (13:30)
--- NOTE | 2020-12-03 13:50 | Billing Data ---
Date of Service December 03, 2020 Coding Level of Care Code Critical Care 1st - mins
--- NOTE | 2020-12-03 13:59 | Hospitalist Progress Note ---
Date of Service December 03, 2020 Assessment & Plan (1) Pneumonia due to COVID-19 virus: First symptoms on 11/15/2020. Outside of window for convalescent plasma or remdesivir. - Covid isolation precautions - Dexamethasone 6 mg IV for 10 days (End date: 12/09/2020) - Supplemental O2 to maintain O2 sat > 90%. - Dramatically worse today with need for high flow O2. CXR, ABG, BNP, and procalcitonin all point toward worsening of Covid-19. No indication of worsening bacterial infection, new PE, mucus blood, or other acute, reversible issue. - Transferred to ICU (2) Multifocal pneumonia: Elevated procalcitonin and neutrophil count suggestive of secondary bacterial pneumonia. - Continue ceftriaxone 2 g IV daily x 5 days and azithromycin 500 mg IV now then 250 mg IV for 4 days - Repeat procalcitonin on 12/02 down to 0.37 from 1.2 as hoped. Repeat on 12/03 was down further to 0.21. (3) Hypoxia: Acute hypoxemic respiratory failure, secondary to COVID-19 and bacterial pneumonia as above. - Aim O2 sats > 90% (4) DVT prophylaxis: Lovenox with 40 mg SQ twice daily Admission and Anticipated Discharge Date Admission Date: November 30, 2020 Subjective Much more short of breath this morning. Not as much overnight, but then when she got up this morning to use the restroom, her O2 dropped. Reports no fevers/chills, chest pain, abdominal pain, nausea, or vomiting. Physical Exam Constitutional: WD/WN, vitals as above Eyes: EOM intact bilaterally; no conjunctival abnormality ENMT: external ear and nose normal, oropharynx normal Neck: trachea midline, no thyromegaly normal visual inspection Respiratory: no respiratory distress and no labored breathing Auscultation: + crackles (Diffuse.) Cardiovascular: Rate/Rhythm: regular rate and regular rhythm Heart Sounds: normal S1 and normal S2 Vessels: no JVD Extremities: no edema Gastrointestinal (Abdomen): Inspection/Auscultation: abdomen normal to inspection; abdomen not distended Musculoskeletal: no cyanosis or clubbing, extremities motor strength 5/5 Skin: no rashes, warm and dry Neurologic: moves all extremities and awake Psychiatric: Orientation: alert, oriented to person and cooperative Results & Data Results & Data ([facility]) Vital Signs (Past 12 Hours) Vital Signs Temp Pulse Pulse Resp BP Pulse Ox Pulse Ox 12/03/20 13:07 77 18 96 12/03/20 12:00 37.8 C H 12/03/20 10:45 37.8 C H 111 H 98 H 18 112/54 L 92 94 12/03/20 08:00 89 L 12/03/20 07:35 37.3 C 96 H 21 131/80 93 12/03/20 06:38 93 12/03/20 06:34 80 18 92 12/03/20 06:10 88 L 12/03/20 05:25 36.6 C 77 18 145/82 H 86 L PG Care Time/CCT Total # of Minutes Spent Total Time Spent with Patient: Total time spent is greater than 50% in coordination of care (as documented) at patient's floor/unit and/or counseling patient: Coding Level of Care Code 56421 Subseq Hosp Care Lvl 3 Diagnoses Pneumonia due to COVID-19 virus U07.1; J12.82 Multifocal pneumonia J18.9 Hypoxia R09.02 DVT prophylaxis Z29.9
[2020-12-03] MEDS ORDERED: PHARMACY GLYCEMIC MGMT CONSULT SCH (16:09)
[2020-12-03] MEDS ORDERED: CARBOHYDRATES FOR HYPOGLYCEMIA PO PRN ×2 (16:15)
[2020-12-03] MEDS ORDERED: DEXTROSE 50% 50 ML SYRINGE IV PRN ×2 (16:15)
[2020-12-03] MEDS ORDERED: GLUCAGON FOR INJ 1 MG VIAL SQ PRN ×2 (16:15)
[2020-12-03] MEDS ORDERED: GLUCOSE 10 TABS/TUBE PO PRN ×2 (16:15)
[2020-12-03] MEDS ORDERED: GLUCOSE 40% GEL 15 GM TUBE PO PRN ×2 (16:15)
[2020-12-03] MEDS ORDERED: INSULIN HUMAN NPH SC SCH (16:30)
[2020-12-03] MEDS ORDERED: dexAMETHasone 20 MG in SYRINGE 0 ML IV SCH (16:30)
[2020-12-03] MEDS ORDERED: INSULIN ASPART 100 UNITS/ML 3 ML PEN SC SCH (16:30)
[2020-12-03] MEDS: cefTRIAXone SODIUM 2,000 MG in DEXTROSE 5% 50 ML IV SCH (16:46)
--- NOTE | 2020-12-03 17:06 | Palliative Care Consultation ---
Date of Consultation December 03, 2020 Assessment & Plan (1) Palliative care encounter: Terri Montague is a 54-year-old female who came to the [facility] with SOB, generalized muscle aches, nausea and coughing. She tested positive for COVID-19 on 11/17/20. She has been started on steroids for covid-19 pneumonia and has been placed on High-flow. She does not have any major past medical history. Over the last 24 hours her oxygen requirement has increased. Palliative care was consulted to discuss overall goals of care. I met with Terri with Dr. Ramirez. We discussed her overall goals. She does have anxiety and is fearful of being intubated. We discussed covid and its progression. We encouraged conversation regarding goals of care while she is able and it is a more controlled environment. She does not have any major comorbidities and discussed intubation in detail. She is receptive to being intubated if this is part of her treatment plan, but would like to avoid is at all possible. In the middle of our conversation, Dr. Carrillo and Dr. Morocho came into the room to discuss further. Dr. Carrillo discussed intubation and transfer to ICU for closer monitoring. She was agreeable to intubation should she become too hypoxic and tired. Additionally, she was amenable to a tracheostomy if it would provide her with a senior care recovery. She did name her daughter Azeb as her decision maker in the event she is unable to make her own medical decisions. She was clear to remain a full code in the event of cardiac or respiratory arrest. I reached out to her at [phone] who is in agreement with the above outlined plan. For now, palliative will follow peripherally. Should she decline and further decision making is needed, please call us. (2) Hypoxia: She was sitting in her bed in no apparent distress on on Hi-Flow 55%. She was able to have a full conversation without becoming hypoxic. Her SpO2 decreased to 88-90% and apparently when she gets out of bed, does drop into the 70's. She is on steroids and we encouraged proning, which she has tolerated. She has been since transfered to the ICU for closer monitoring and is tolerating proned position. (3) Pneumonia due to COVID-19 virus: History of Present Illness Reason for Consultation: Goals of care Requesting Physician: Dr. Ramirez Attending Physician: Brent Ramirez MD History of Present Illness Terri Montague is a 54-year-old female who came to the [facility] with SOB, generalized muscle aches, nausea and coughing. She tested positive for COVID-19 on 11/17/20. She has been started on steroids for covid-19 pneumonia and has been placed on High-flow. She does not have any major past medical history. Over the last 24 hours her oxygen requirement has increased. Palliative care was consulted to discuss overall goals of care. Please see A/P for further details. Thank you for involving palliative care with this individual. Allergies Allergy/AdvReac Type Severity Reaction Status Date / Time No Known Allergies Allergy Verified 11/30/20 11:17 Home Medications Medication Instructions Recorded Confirmed Type C-Zn-K.ginseng-bao [id number] 2 tab PO UD 11/30/20 11/30/20 History [Immune Support Complex] acetaminophen [Tylenol Extra 500 mg PO Q6H PRN 11/30/20 11/30/20 History Strength] Patient History Medical History No pertinent past medical history Surgical History History of delivery History of tonsillectomy Social History Smoking Status: Never smoker Hx Alcohol Use: No Hx Substance Use: No Preferred Language: Pashto Adolescent Medicine Specialist Required: No Beliefs That Will Affect Care: None Current Living Situation: Family Feels Safe at Home: Yes Safety Concerns: Feels Safe At This Time Assistive Devices: Oxygen - Continuous Review of Systems Review of Systems: [place] [facility] Assessment Scale: Tiredness: 0/3 Shortness of breath: 2/3 Anxiety: 1/3 Lack of appetite: 0/3 Palliative Performance Scale: 70% Physical Exam Constitutional: well developed, well nourished, + thin and cooperative Respiratory: + respiratory distress Auscultation: + diminished lung sounds and + rhonchi Cardiovascular: Rate/Rhythm: regular rate and regular rhythm Heart Sounds: normal S1 and normal S2 Extremities: normal capillary refill; no edema Gastrointestinal (Abdomen): normal bowel sounds, soft, nontender, no hepatosplenomegaly Skin: normal turgor and + pallor Psychiatric: A+Ox3, euthymic affect Lymphatic: no cervical or axillary lymphadenopathy Results & Data ([facility]) Vital Signs (Past 12 Hours) Vital Signs Temp Pulse Pulse Resp BP BP Pulse Ox 12/03/20 16:00 37.2 C 86 12/03/20 14:19 76 24 126/85 98 12/03/20 14:00 37.8 C H 66 17 98 12/03/20 13:30 75 23 98 12/03/20 13:07 77 18 96 12/03/20 13:00 37.8 C H 105 H 17 93 12/03/20 12:30 93 H 23 96 12/03/20 12:00 37.8 C H 87 24 96 12/03/20 11:30 37.4 C 90 24 94 12/03/20 11:00 108 H 26 H 91 12/03/20 10:55 110 H 24 179/97 H 90 12/03/20 10:48 93 12/03/20 10:45 37.8 C H 111 H 98 H 18 112/54 L 92 12/03/20 08:00 12/03/20 07:35 37.3 C 96 H 21 131/80 93 12/03/20 06:38 93 12/03/20 06:34 80 18 92 12/03/20 06:10 88 L 12/03/20 05:25 36.6 C 77 18 145/82 H 86 L Pulse Ox 12/03/20 16:00 90 12/03/20 14:19 12/03/20 14:00 12/03/20 13:30 12/03/20 13:07 12/03/20 13:00 12/03/20 12:30 12/03/20 12:00 12/03/20 11:30 12/03/20 11:00 12/03/20 10:55 12/03/20 10:48 12/03/20 10:45 94 12/03/20 08:00 89 L 12/03/20 07:35 12/03/20 06:38 12/03/20 06:34 12/03/20 06:10 12/03/20 05:25 PG Care Time/CCT Total # of Minutes Spent Total Time Spent with Patient: Total time spent is greater than 50% in coordination of care (as documented) at patient's floor/unit and/or counseling patient: Total time spent 70 minutes with > 50% of that time spent assessing the patient, discussing goals of care with patient, and collaborating with IDT Coding Level of Care Code 27599 Inpt Consult Level 3 Diagnoses Palliative care encounter Z51.5 Hypoxia R09.02 Pneumonia due to COVID-19 virus U07.1; J12.82 Time Spent (min) 70
[2020-12-03] MEDS: INSULIN ASPART 100 UNITS/ML 3 ML PEN SC SCH ×2 (17:21→20:09)
[2020-12-03] MEDS: dexAMETHasone 20 MG in DEXTROSE 5% 25 ML IV SCH (17:22)
[2020-12-03] MEDS: INSULIN GLARGINE SOLOSTAR 100 UNITS/ML 3 ML PEN SC SCH (20:10)
[2020-12-04] MEDS ORDERED: INSULIN ASPART 100 UNITS/ML 3 ML PEN SC SCH
[2020-12-04 05:18] LABS: Hematocrit (blood only) 36.5 % (37-47); Hemoglobin 12.3 g/dL (12.0-16.0); Immature Granulocytes # (auto) 0.08 K/uL (0.00-0.02); Immature Granulocytes % (auto) 0.7 %; Lymphocytes # (auto) 1.48 K/uL (1.2-3.4); Lymphocytes % (auto) 13.5 %; Mean Corpuscular Hemoglobin 30.1 pg (25-34); Mean Corpuscular Hgb Conc 33.7 g/dL (32-36); Mean Corpuscular Volume 89.5 fL (80-100); Mean Platelet Volume 9.5 fL (7.4-10.4); Monocytes # (auto) 0.46 K/uL (0.11-0.59); Monocytes % (auto) 4.2 %; Neutrophils # (auto) 8.92 K/uL (1.4-6.5); Neutrophils % (auto) 81.6 %; Platelet Count 644 K/uL (130-400); RDW Coefficient of Variation 12.6 % (11.5-14.5); RDW Standard Deviation 40.6 fL (36.4-46.3); Red Blood Count 4.08 M/uL (4.2-5.4); White Blood Count 10.94 K/uL (4.8-10.8)
[2020-12-04 05:28] LABS: Base Excess ABG 5.2 mEq/L (-9-1.8); HCO3 ABG 29 mmol/L (19-24); Oxygen Saturation ABG 96.2 % (90-95); PCO2 ABG 38 mmHg (35-46); PO2 ABG 76 mmHg (80-95); pH ABG 7.49 (7.35-7.45)
[2020-12-04 05:31] LABS: Allen Test Pos (Pos)
[2020-12-04 06:14] LABS: BUN Creatinine Ratio 20.2 (10-20); Calcium 8.9 mg/dl (8.5-10.1); Creatinine Clr Calc Pharmacy 76.3 ml/min; Est GFR (African American) 112.8; Est GFR (Non-African American) 97.3; Magnesium 2.7 mg/dl (1.8-2.4); Potassium 4.1 mmol/L (3.5-5.1)
[2020-12-04 06:15] LABS: Phosphorus 5.2 mg/dl (2.5-4.9)
[2020-12-04 06:18] LABS: Estimated Average Glucose 148 mg/dl; Hemoglobin A1C 6.8 % (4.5-5.6)
--- NOTE | 2020-12-04 07:37 | Critical Care Progress Note ---
Date of Service December 04, 2020 Assessment & Plan (1) Pneumonia due to COVID-19 virus: Reason Critically Ill: 54-year-old female without significant PMHx who was admitted on 11/30 for COVID-19 pneumonia and transferred to the ICU on 12/03 for worsening respiratory status secondary to this. Currently proning and hemodynamically stable on high-flow nasal cannula. Neuro - CAM ICU: POSITIVE - patient is noticeably anxious due to medical status, which may be contributing to current high-flow requirements - started Precedex to assist with anxiety and respiratory status - continue to monitor CAM-ICU/mental status while in the ICU Cardiac - hemodynamically stable with appropriate BPs/HRs on high-flow nasal cannula - closely monitor on tele while in ICU Respiratory - COVID-19 pneumonia - worsening respiratory status secondary to this - CXR showing multifocal airspace consolidations suggestive of COVID-19 PNA, although mild leukocytosis with left shift and initial procalcitonin of 1.19 suggestive of superimposed bacterial PNA - AB.49/38/76/29 - respiratory alkalosis significantly improved since initiation of high-flow nasal cannula and proning therapy - currently satting 96-98% on high-flow nasal cannula (40L/min, .45 FiO2), FiO2 decreased and SpO2 improved since proned - continue proning and high-flow for now - follow closely for further decompensation in respiratory status - would plan on intubating the patient at that time - patient understands the benefits and risks of intubation; given her currently decompensating respiratory status, the patient consented to intubation if necessary - continue Dexamethasone 20mg IV x5 days (today is day 2), followed by 10mg IV x5 days - continue Azithromycin/Ceftriaxone x5 days (today is day 5) GI - clear liquid diet RENAL/LYTES - No significant electrolyte derangement - Replace lytes as needed - No concerns at this time ENDO - A1c 6.8, glucose well-controlled on current regimen - continue SSI/basal dosing insulin, ICU hyperglycemia protocol HEME - Stable H&H - continue to monitor with serial CBCs ID - COVID-19 pneumonia, with possible superimposed bacterial pneumonia - continue Dexamethasone as well as Azithromycin/Ceftriaxone (day 5/5), as mentioned above - Monitor fever curve LINES/IV ACCESS - PIVx2 intact DVT Prophylaxis: Lovenox 40mg SQ BID (COVID-19 high-intensity dosing) Code Status: Full code Thank you for allowing us to be part of this patient's care. Please refer to Dr. Carrillo's documentation for any further recommendations. (2) Hypoxia: (3) Multifocal pneumonia: Admission and Anticipated Discharge Date Admission Date: November 30, 2020 Supervising Physician Co-Signing Physician Notes Dr. Morocho was resident physician during care of patient. I separately evaluated patient for muñiz portions of the history and the exam. I was present during the critical portion of medical decision making, and I discussed the case with the resident. I generally agree with the findings and plan. Engaging in self pronation, close observation at risk for intubation Subjective Patient did well with proning therapy overnight - has stable oxygenation of >90% on high-flow nasal cannula 40L/min at 0.45 FiO2. However sats drop to mid-80s when she sits up to eat. Patient denies fever/chills, chest pain, shortness of breath, N/V, abdominal pain this morning. Review of Systems Review of Systems: Pertinent positives and negatives mentioned in HPI. Physical Exam Physical Exam: General: A&Ox3. NAD. Patient in proned position in her ICU bed - high-flow nasal cannula in place HEENT: Atraumatic, normocephalic. Pulm: Decreased air entry bilaterally, no wheezes, no increased work of breathing on current high-flow settings Cardiac: RRR, -mrg. Radial pulses intact and symmetrical. Abdominal: soft, non-tender, non-distended Skin: warm, dry Results & Data Results & Data ([facility]) Vital Signs (Past 12 Hours) Vital Signs Temp Pulse Pulse Resp BP Pulse Ox 12/04/20 05:55 36.5 C 12/04/20 05:30 63 18 95 12/04/20 05:23 94 H 17 119/84 94 12/04/20 05:00 70 24 95 12/04/20 04:30 60 16 98 12/04/20 04:23 60 19 126/71 98 12/04/20 04:00 57 L 17 98 12/04/20 03:30 55 L 20 97 12/04/20 03:27 68 17 94 12/04/20 03:23 91 H 15 142/80 H 97 12/04/20 03:00 62 18 98 12/04/20 02:30 57 L 17 98 12/04/20 02:00 75 17 95 12/04/20 01:30 64 18 98 12/04/20 01:19 64 17 131/79 98 12/04/20 01:00 60 18 98 12/04/20 00:30 64 20 98 12/04/20 00:19 60 18 140/76 97 12/04/20 00:00 68 20 98 12/03/20 23:59 67 12/03/20 23:30 79 22 93 12/03/20 23:20 85 21 94 12/03/20 23:19 81 20 148/103 H 95 12/03/20 23:00 84 13 97 12/03/20 22:30 80 21 98 12/03/20 22:19 79 12 150/75 H 96 12/03/20 22:00 85 22 96 12/03/20 21:43 36.7 C 12/03/20 21:30 88 26 H 96 12/03/20 21:19 89 23 141/56 H 92 12/03/20 21:00 72 11 L 99 12/03/20 20:30 77 17 98 12/03/20 20:19 74 19 145/89 H 94 12/03/20 20:00 78 21 94 12/03/20 19:48 84 14 94 Critical Care Time Critical Care Time: Yes Total Critical Care Time: 35 Resident Activity Tracking Resident Involvement: Resident Care Provided Care Provided: Adult Hospital Medicine
[2020-12-04] MEDS: guaiFENesin 600 MG TABCR PO SCH ×2 (07:42→20:07)
[2020-12-04] MEDS: ENOXAPARIN INJ 40 MG/0.4 ML SYR SQ SCH ×2 (07:43→20:07)
[2020-12-04] MEDS: AZITHROMYCIN 250 MG in DEXTROSE 5% 250 ML IV SCH (07:45)
[2020-12-04] MEDS: INSULIN GLARGINE SOLOSTAR 100 UNITS/ML 3 ML PEN SC SCH ×2 (08:55→20:33)
[2020-12-04] MEDS: INSULIN ASPART 100 UNITS/ML 3 ML PEN SC SCH ×4 (08:55→20:33)
--- NOTE | 2020-12-04 09:38 | Billing Data ---
Date of Service December 04, 2020 Coding Level of Care Code Critical Care 1st - mins
[2020-12-04] MEDS ORDERED: STAT IV Infusion **Titration per Protocol STA (10:04)
[2020-12-04] MEDS: DEXMEDETOMIDINE HCL 200 MCG in SODIUM CHLORIDE 0.9% 48 ML IV SCH ×2 (11:29→20:50)
[2020-12-04] MEDS ORDERED: COUGH DROP (SUGAR FREE) LOZ 24 LOZ/1 BOX BUCCAL ONE (13:56)
[2020-12-04] MEDS: cefTRIAXone SODIUM 2,000 MG in DEXTROSE 5% 50 ML IV SCH (16:25)
[2020-12-04] MEDS: dexAMETHasone 20 MG in DEXTROSE 5% 25 ML IV SCH (16:26)
[2020-12-04] MEDS ORDERED: SODIUM CHLORIDE 0.65% NA SOLN 45 ML (OCEAN) ONE (16:52)
--- NOTE | 2020-12-04 19:58 | Hospitalist Progress Note ---
Date of Service December 04, 2020 Assessment & Plan (1) Acute respiratory failure with hypoxia: severe, 2nd to COVID-19 pneumonia. acute resp failure improving; HFNC being weaned by ICU team. cont supportive care - see below. (2) Pneumonia due to COVID-19 virus: First symptoms on 11/15/2020. Outside of window for convalescent plasma or remdesivir. SEVERE disease with resp failure. Day #5 of IV dexamethasone - using high-dose protocol given severity of illness. Plan 10 days of Rx. s/p 5-day course of rocephin/zithromax to cover superimposed bacterial pneumonia as initial procal at admission was elevated (procal now normal). Cont HFNC, self-proning, pulmonary toilet. Appreciate critical care assistance. (3) Diabetes mellitus type 2, uncontrolled: new diagnosis. a1c 6.8%. ICU glycemic protocol in place. will need DM education, etc. (4) Anxiety: mod-severe. on precedex infusion with improvement. (5) Elevated AST (SGOT): 2nd COVID-19 infection -- now resolved. ALT wnl. (6) DVT prophylaxis: Lovenox with 40 mg SQ twice daily -- higher dose due to increase risk of VTE w/ COVID. daughter updated extensively by phone this evening. support and prayer given to patient during bedside rounds. Admission and Anticipated Discharge Date Admission Date: November 30, 2020 Subjective very anxious due to her own COVID illness and fear of winding up on the event. anxious because her father is also hospitalized for COVID. daughter's has brain tumor and they have child on the way. ICU attending instituted precedex to help with severe anxiety. has been diligent about self-proning. using incentive. continues w/ cough and throat clearing. cough largely nonproductive. taste is altered. severe fatigue. Review of Systems Constitutional: + fatigue and + weakness; no fever and no chills Cardiovascular: no chest pain and no dyspnea at rest Gastrointestinal: + diarrhea/loose stools; no abdominal pain Physical Exam Constitutional: + ill appearing; no acute distress and no altered mental status ENMT: external ear and nose normal, oropharynx normal Respiratory: no respiratory distress Auscultation: + rales; no wheezes Cardiovascular: Rate/Rhythm: regular rate and regular rhythm Heart Sounds: normal S1 and normal S2; no murmur Vessels: posterior tibial pulses present and dorsalis pedis pulses present; no JVD Extremities: no edema Gastrointestinal (Abdomen): normal bowel sounds, soft, nontender, no h epatosplenomegaly Skin: no rashes, warm and dry Psychiatric: Orientation: alert and oriented x 3 Affect: + anxious affect Results & Data Results & Data ([facility]) Vital Signs (Past 12 Hours) Vital Signs Temp Pulse Pulse Resp BP Pulse Ox Pulse Ox 12/04/20 19:23 68 15 136/79 92 12/04/20 18:23 72 22 111/70 94 12/04/20 18:00 36.4 C L 78 21 93 12/04/20 17:23 73 20 123/74 95 12/04/20 17:00 66 21 95 12/04/20 16:23 66 22 124/76 92 12/04/20 16:15 93 H 18 93 12/04/20 16:00 76 21 94 91 12/04/20 15:23 65 16 142/87 H 97 12/04/20 15:15 93 H 12/04/20 15:00 66 18 96 12/04/20 14:23 68 18 122/68 96 12/04/20 14:00 79 16 94 12/04/20 13:23 80 24 137/90 95 12/04/20 13:00 101 H 20 89 L 12/04/20 12:23 98 H 22 130/86 93 12/04/20 12:00 93 H 17 93 12/04/20 11:35 102 H 20 93 12/04/20 11:23 89 19 145/117 H 94 12/04/20 11:00 92 H 18 93 12/04/20 10:23 89 10 L 147/88 H 92 12/04/20 10:00 99 H 20 90 12/04/20 09:23 101 H 18 120/89 96 12/04/20 09:00 74 17 97 12/04/20 08:30 86 17 85 L 12/04/20 08:28 80 20 95 12/04/20 08:00 36.8 C 91 H 16 88 L Laboratory Results Laboratory Results - last 24 hr 12/03/20 12/04/20 12/04/20 19:52 05:03 05:03 WBC 10.94 H RBC 4.08 L Hgb 12.3 Hct 36.5 L MCV 89.5 MCH 30.1 MCHC 33.7 RDW Std Deviation 40.6 RDW Coeff of Oxana 12.6 Plt Count 644 H MPV 9.5 Immature Gran % (Auto) 0.7 Neut % (Auto) 81.6 Lymph % (Auto) 13.5 Cole % (Auto) 4.2 Eos % (Auto) 0.0 Baso % (Auto) 0.0 Neut # (Auto) 8.92 H Lymph # (Auto) 1.48 [place] # (Auto) 0.46 Eos # (Auto) 0.00 Baso # (Auto) 0.00 Immature Gran # (Auto) 0.08 H ABG pH ABG pCO2 ABG pO2 ABG HCO3 ABG O2 Saturation ABG Base Excess Iker Test Barometric Pressure Oxygen Given Sodium 137 Potassium 4.1 Chloride 101 Carbon Dioxide 29 Anion Gap 7.0 BUN 14 Creatinine 0.69 Est Cr Clr Drug Dosing 76.3 Est GFR ( Amer) 112.8 Est GFR (Non-Af Amer) 97.3 BUN/Creatinine Ratio 20.2 H Glucose 178 H POC Glucose 182 H Estimat Average Glucose Hemoglobin A1c Calcium 8.9 Phosphorus 5.2 H Magnesium 2.7 H 12/04/20 12/04/20 12/04/20 05:03 05:03 07:50 WBC RBC Hgb Hct MCV MCH MCHC RDW Std Deviation RDW Coeff of Oxana Plt Count MPV Immature Gran % (Auto) Neut % (Auto) Lymph % (Auto) [place] % (Auto) Eos % (Auto) Baso % (Auto) Neut # (Auto) Lymph # (Auto) [place] # (Auto) Eos # (Auto) Baso # (Auto) Immature Gran # (Auto) ABG pH 7.49 H ABG pCO2 38 ABG pO2 76 L ABG HCO3 29 H ABG O2 Saturation 96.2 H ABG Base Excess 5.2 H Iker Test Pos Barometric Pressure 733.9 Oxygen Given 45% Sodium Potassium Chloride Carbon Dioxide Anion Gap BUN Creatinine Est Cr Clr Drug Dosing Est GFR ( Amer) Est GFR (Non-Af Amer) BUN/Creatinine Ratio Glucose POC Glucose 146 H Estimat Average Glucose 148 Hemoglobin A1c 6.8 H Calcium Phosphorus Magnesium 12/04/20 12/04/20 11:40 16:38 WBC RBC Hgb Hct MCV MCH MCHC RDW Std Deviation RDW Coeff of [place]ana Plt Count MPV Immature Gran % (Auto) Neut % (Auto) Lymph % (Auto) [place] % (Auto) Eos % (Auto) Baso % (Auto) Neut # (Auto) Lymph # (Auto) [place] # (Auto) Eos # (Auto) Baso # (Auto) Immature Gran # (Auto) ABG pH ABG pCO2 ABG pO2 ABG HCO3 ABG O2 Saturation ABG Base Excess Iker Test Barometric Pressure Oxygen Given Sodium Potassium Chloride Carbon Dioxide Anion Gap BUN Creatinine Est Cr Clr Drug Dosing Est GFR ( Amer) Est GFR (Non-Af Amer) BUN/Creatinine Ratio Glucose POC Glucose 154 H 147 H Estimat Average Glucose Hemoglobin A1c Calcium Phosphorus Magnesium sputum cx - negative PG Care Time/CCT Total # of Minutes Spent Total Time Spent with Patient: Total time spent is greater than 50% in coordination of care (as documented) at patient's floor/unit and/or counseling patient: Coding Level of Care Code 10394 Subseq Hosp Care Lvl 2 Diagnoses Acute respiratory failure with hypoxia J96.01 Pneumonia due to COVID-19 virus U07.1; J12.82 Diabetes mellitus type 2, uncontrolled E11.65 Anxiety F41.9 Elevated AST (SGOT) R74.01 DVT prophylaxis Z29.9
[2020-12-05 05:21] LABS: Basophils # (auto) 0.01 K/uL (0-0.2); Basophils % (auto) 0.1 %; Hemoglobin 12.5 g/dL (12.0-16.0); Immature Granulocytes # (auto) 0.05 K/uL (0.00-0.02); Immature Granulocytes % (auto) 0.4 %; Lymphocytes # (auto) 1.48 K/uL (1.2-3.4); Lymphocytes % (auto) 12.9 %; Mean Corpuscular Hemoglobin 30.5 pg (25-34); Mean Corpuscular Hgb Conc 33.8 g/dL (32-36); Mean Corpuscular Volume 90.2 fL (80-100); Mean Platelet Volume 9.5 fL (7.4-10.4); Monocytes # (auto) 0.54 K/uL (0.11-0.59); Monocytes % (auto) 4.7 %; Neutrophils # (auto) 9.42 K/uL (1.4-6.5); Neutrophils % (auto) 81.9 %; Platelet Count 647 K/uL (130-400); RDW Coefficient of Variation 12.8 % (11.5-14.5); RDW Standard Deviation 41.8 fL (36.4-46.3)
[2020-12-05 05:42] LABS: BUN Creatinine Ratio 21.2 (10-20); Calcium 9.4 mg/dl (8.5-10.1); Creatinine Clr Calc Pharmacy 71.1 ml/min; Est GFR (Non-African American) 90.6; Magnesium 2.7 mg/dl (1.8-2.4); Phosphorus 4.7 mg/dl (2.5-4.9)
[2020-12-05] MEDS: guaiFENesin 600 MG TABCR PO SCH ×2 (07:29→20:01)
[2020-12-05] MEDS: INSULIN ASPART 100 UNITS/ML 3 ML PEN SC SCH ×4 (08:11→20:25)
[2020-12-05] MEDS: ENOXAPARIN INJ 40 MG/0.4 ML SYR SQ SCH ×2 (08:12→20:01)
[2020-12-05] MEDS: INSULIN GLARGINE SOLOSTAR 100 UNITS/ML 3 ML PEN SC SCH ×2 (08:13→20:24)
--- NOTE | 2020-12-05 08:49 | XRay Report ---
XR chest 1V portable HISTORY: Pneumonia. Follow-up. Covid 19 positive. COMPARISON: Chest 12/03/2020. FINDINGS: No pneumothorax. No pleural effusions. The heart is normal in size. Bilateral multifocal ai rspace opacities persist and are consistent with a pneumonia. IMPRESSION: No change in the multifocal airspace opacities consistent with a viral pneumonia. ACT 112: Negative or not required by law. Electronically signed by: Sanya Brantley M.D. 12/05/2020 8:47 AM
--- NOTE | 2020-12-05 10:29 | Critical Care Progress Note ---
Date of Service December 05, 2020 Assessment & Plan (1) Acute respiratory failure with hypoxia: neumonia due to COVID-19 virus: Reason Critically Ill: 54-year-old female without significant PMHx who was admitted on 11/30 for COVID-19 pneumonia and transferred to the ICU on 12/03 for worsening respiratory status secondary to this. Currently proning and hemodynamically stable on high-flow nasal cannula. Neuro - CAM ICU: POSITIVE - patient is noticeably anxious due to medical status, which may be contributing to current high-flow requirements - started Precedex to assist with anxiety and respiratory status - continue to monitor CAM-ICU/mental status while in the ICU Cardiac - hemodynamically stable with appropriate BPs/HRs on high-flow nasal cannula - closely monitor on tele while in ICU Respiratory - COVID-19 pneumonia - worsening respiratory status secondary to this - CXR showing multifocal airspace consolidations suggestive of COVID-19 PNA, although mild leukocytosis with left shift and initial procalcitonin of 1.19 suggestive of superimposed bacterial PNA - continue Dexamethasone 20mg IV x5 days, followed by 10mg IV x5 days - continue Azithromycin/Ceftriaxone x5 days GI - clear liquid diet RENAL/LYTES - No significant electrolyte derangement - Replace lytes as needed - No concerns at this time ENDO - A1c 6.8, glucose well-controlled on current regimen - continue SSI/basal dosing insulin, ICU hyperglycemia protocol HEME - Stable H&H - continue to monitor with serial CBCs ID - COVID-19 pneumonia, with possible superimposed bacterial pneumonia - continue Dexamethasone as well as Azithromycin/Ceftriaxone (day 5/5), as mentioned above - Monitor fever curve LINES/IV ACCESS - PIVx2 intact DVT Prophylaxis: Lovenox 40mg SQ BID (COVID-19 high-intensity dosing) Code Status: Full code (2) Pneumonia due to COVID-19 virus: (3) Multifocal pneumonia: Admission and Anticipated Discharge Date Admission Date: November 30, 2020 Supervising Physician Co-Signing Physician Notes I have personally spent 40 minutes of critical care time in the direct management of this patient. This is a life/limb threatening event. This includes time spent evaluating patient, direct bedside care, chart review, placing orders, interpretation of diagnostic studies, discussion with consultants, patient, and/or family members regarding treatment decisions, as well as other required patient management activities. This time is exclusive of all separately billable procedures, and teaching time and separate from and in addition to any other critical care service time. Subjective No overnight events still engages in self proning Physical Exam Physical Exam: General: Alert. nontoxic. Skin: Warm, dry, Head: Atraumatic Ears, nose, mouth and throat: airway patent Cardiovascular: Normal peripheral perfusion Respiratory: Mild tachypnea Gastrointestinal: Non distended Musculoskeletal: No deformity Results & Data Results & Data ([facility]) Vital Signs (Past 12 Hours) Vital Signs Temp Pulse Pulse Resp BP Pulse Ox Pulse Ox 12/05/20 08:30 73 12 90 12/05/20 08:23 73 16 91/53 L 12/05/20 08:00 36.6 C 70 16 90 12/05/20 07:30 23 12/05/20 07:23 25 H 124/79 97 12/05/20 07:00 48 L 16 99 12/05/20 06:23 47 L 16 110/67 97 12/05/20 05:25 65 25 H 99/64 L 97 12/05/20 04:23 47 L 16 121/65 99 12/05/20 03:23 46 L 15 113/67 99 12/05/20 02:23 43 L 16 121/70 98 12/05/20 01:23 50 L 18 109/63 100 12/05/20 00:33 36.6 C 57 L 19 112/60 100 12/04/20 23:30 61 25 H 109/64 95 12/04/20 22:56 54 L 22 98 Laboratory Results 12/05/20 12/05/20 12/05/20 Range/Units 07:39 05:07 05:07 WBC 11.50 H (4.8-10.8) K/uL RBC 4.10 L (4.2-5.4) M/uL Hgb 12.5 (12.0-16.0) g/dL Hct 37.0 (37-47) % MCV 90.2 (80-100) fL MCH 30.5 (25-34) pg MCHC 33.8 (32-36) g/dL RDW Std Deviation 41.8 (36.4-46.3) fL RDW Coeff of Oxana 12.8 (11.5-14.5) % Plt Count 647 H (130-400) K/uL MPV 9.5 (7.4-10.4) fL Immature Gran % (Auto) 0.4 % Neut % (Auto) 81.9 % Lymph % (Auto) 12.9 % Real % (Auto) 4.7 % Eos % (Auto) 0.0 % Baso % (Auto) 0.1 % Neut # (Auto) 9.42 H (1.4-6.5) K/uL Lymph # (Auto) 1.48 (1.2-3.4) K/uL Real # (Auto) 0.54 (0.11-0.59) K/uL Eos # (Auto) 0.00 (0-0.5) K/uL Baso # (Auto) 0.01 (0-0.2) K/uL Immature Gran # (Auto) 0.05 H (0.00-0.02) K/uL Sodium 136 (136-145) mmol/L Potassium 5.0 D (3.5-5.1) mmol/L Chloride 101 (98-107) mmol/L Carbon Dioxide 30 (21-32) mmol/L Anion Gap 5.0 (3-11) BUN 16 (7-18) mg/dl Creatinine 0.74 (0.6-1.2) mg/dl Est Cr Clr Drug Dosing 71.1 ml/min Est GFR ( Amer) 105.0 Est GFR (Non-Af Amer) 90.6 BUN/Creatinine Ratio 21.2 H (10-20) Glucose 159 H (70-99) mg/dl POC Glucose 128 H (70-99) mg/dl Calcium 9.4 (8.5-10.1) mg/dl Phosphorus 4.7 (2.5-4.9) mg/dl Magnesium 2.7 H (1.8-2.4) mg/dl 12/04/20 12/04/20 12/04/20 Range/Units 20:10 16:38 11:40 WBC (4.8-10.8) K/uL RBC (4.2-5.4) M/uL Hgb (12.0-16.0) g/dL Hct (37-47) % MCV (80-100) fL MCH (25-34) pg MCHC (32-36) g/dL RDW Std Deviation (36.4-46.3) fL RDW Coeff of Oxana (11.5-14.5) % Plt Count (130-400) K/uL MPV (7.4-10.4) fL Immature Gran % (Auto) % Neut % (Auto) % Lymph % (Auto) % Real % (Auto) % Eos % (Auto) % Baso % (Auto) % Neut # (Auto) (1.4-6.5) K/uL Lymph # (Auto) (1.2-3.4) K/uL Real # (Auto) (0.11-0.59) K/uL Eos # (Auto) (0-0.5) K/uL Baso # (Auto) (0-0.2) K/uL Immature Gran # (Auto) (0.00-0.02) K/uL Sodium (136-145) mmol/L Potassium (3.5-5.1) mmol/L Chloride (98-107) mmol/L Carbon Dioxide (21-32) mmol/L Anion Gap (3-11) BUN (7-18) mg/dl Creatinine (0.6-1.2) mg/dl Est Cr Clr Drug Dosing ml/min Est GFR ( Amer) Est GFR (Non-Af Amer) BUN/Creatinine Ratio (10-20) Glucose (70-99) mg/dl POC Glucose 187 H 147 H 154 H (70-99) mg/dl Calcium (8.5-10.1) mg/dl Phosphorus (2.5-4.9) mg/dl Magnesium (1.8-2.4) mg/dl Coding Level of Care Code Critical Care 1st 30-74 mins Diagnoses Acute respiratory failure with hypoxia J96.01 Pneumonia due to COVID-19 virus U07.1; J12.82 Multifocal pneumonia J18.9
[2020-12-05] MEDS: DEXMEDETOMIDINE HCL 200 MCG in SODIUM CHLORIDE 0.9% 48 ML IV SCH (12:49)
[2020-12-05] MEDS: dexAMETHasone 20 MG in DEXTROSE 5% 25 ML IV SCH (16:42)
--- NOTE | 2020-12-05 21:03 | Hospitalist Progress Note ---
Date of Service December 05, 2020 Assessment & Plan (1) Acute respiratory failure with hypoxia: severe, 2nd to COVID-19 pneumonia. IMPROVING. FiO2 requirements dropping nicely. cont supportive care - see below. (2) Pneumonia due to COVID-19 virus: First symptoms on 11/15/2020. Outside of window for convalescent plasma or remdesivir. SEVERE disease with acute resp failure. Day #6 of IV dexamethasone - using high-dose protocol given severity of illness. Plan 10 days of Rx. s/p 5-day course of rocephin/zithromax to cover superimposed bacterial pneumonia as initial procal at admission was elevated (procal now normal). Cont HFNC, self-proning, pulmonary toilet. Wean FiO2 and HFNC as tolerated. Appreciate critical care assistance. (3) Diabetes mellitus type 2, uncontrolled: new diagnosis. a1c 6.8%. ICU glycemic protocol in place. will need DM education, etc. suspect we can likely use metformin BID at discharge in [place] of insulin. (or metformin + lantus) (4) Anxiety: mod-severe. on precedex infusion with improvement. once off precedex consider buspar prn. consider SSRI as well. long-standing issue ('Years' per patient). (5) Elevated AST (SGOT): 2nd COVID-19 infection -- now resolved. ALT wnl. (6) DVT prophylaxis: Lovenox with 40 mg SQ twice daily -- higher dose due to increase risk of VTE w/ COVID. daughter Columba updated extensively by phone 12/04/20 sister Alberta updated by phone 12/05/20 ([phone]) support and prayer given to patient during bedside rounds once again. obtain PT, OT evals. hopefully oob to chair tomorrow. consider d/c wilcox. can likely go to PCU in am. Admission and Anticipated Discharge Date Admission Date: November 30, 2020 Subjective by report tele wnl overnight. HFNC has been weaned nicely - now down to <15 L and FiO2 35%. she still is anxious, but is "relieved that my dad is doing better" (father is hospitalized w/ COVID). she has been diligent with proning and deep breathing/flutter/etc. still has not been OOB - remains on precedex infusion. wilcox still in place. coughing, but no sputum production. previously had had diarrhea but resolved. tolerating clears. Review of Systems Constitutional: + fatigue and + weakness; no fever and no chills Respiratory: no wheezing Cardiovascular: no chest pain and no edema Gastrointestinal: no abdominal pain and no vomiting Physical Exam Constitutional: no acute distress and no altered mental status looks better today; more relaxed, less anxious ENMT: external ear and nose normal, oropharynx normal (no thrush plaques) Respiratory: no respiratory distress Auscultation: + rales (1/2 [address] up back b/l ); no wheezes Cardiovascular: Rate/Rhythm: regular rate and regular rhythm Heart Sounds: normal S1 and normal S2; no murmur Vessels: posterior tibial pulses present and dorsalis pedis pulses present; no JVD Extremities: no edema Gastrointestinal (Abdomen): normal bowel sounds, soft, nontender, no hepatosplenomegaly Skin: no rashes, warm and dry Psychiatric: Orientation: alert and oriented x 3 Results & Data Results & Data ([facility]) Vital Signs (Past 12 Hours) Vital Signs Temp Pulse Resp BP Pulse Ox Pulse Ox 12/05/20 20:24 36.6 C 61 20 117/62 98 12/05/20 19:24 71 21 105/57 L 95 12/05/20 18:23 77 22 113/64 94 12/05/20 18:00 84 19 92 12/05/20 17:30 83 22 94 12/05/20 17:24 82 18 112/61 94 12/05/20 17:00 80 29 H 92 12/05/20 16:30 65 14 98 12/05/20 16:23 83 22 112/63 99 12/05/20 16:00 58 L 19 99 12/05/20 15:30 60 20 100 12/05/20 15:23 66 14 117/74 100 12/05/20 15:00 51 L 19 100 12/05/20 14:30 93 H 20 92 12/05/20 14:23 64 15 100/65 96 12/05/20 14:00 71 23 95 12/05/20 13:30 77 22 94 12/05/20 13:23 81 20 121/74 98 12/05/20 13:00 84 20 96 12/05/20 12:30 82 22 94 12/05/20 12:23 87 19 121/70 93 12/05/20 12:00 77 21 90 12/05/20 11:58 36.6 C 91 12/05/20 11:30 65 19 95 12/05/20 11:24 65 20 101/68 92 12/05/20 11:00 66 19 93 12/05/20 10:30 62 18 96 12/05/20 10:25 67 17 95 12/05/20 10:24 66 21 122/54 L 95 12/05/20 10:00 83 19 91 12/05/20 09:30 80 16 92 12/05/20 09:23 83 25 H 103/49 L 92 Laboratory Results Laboratory Results - last 24 hr 12/05/20 12/05/20 12/05/20 05:07 05:07 07:39 WBC 11.50 H RBC 4.10 L Hgb 12.5 Hct 37.0 MCV 90.2 MCH 30.5 MCHC 33.8 RDW Std Deviation 41.8 RDW Coeff of Oxana 12.8 Plt Count 647 H MPV 9.5 Immature Gran % (Auto) 0.4 Neut % (Auto) 81.9 Lymph % (Auto) 12.9 [place] % (Auto) 4.7 Eos % (Auto) 0.0 Baso % (Auto) 0.1 Neut # (Auto) 9.42 H Lymph # (Auto) 1.48 [place] # (Auto) 0.54 Eos # (Auto) 0.00 Baso # (Auto) 0.01 Immature Gran # (Auto) 0.05 H Sodium 136 Potassium 5.0 D Chloride 101 Carbon Dioxide 30 Anion Gap 5.0 BUN 16 Creatinine 0.74 Est Cr Clr Drug Dosing 71.1 Est GFR ( Amer) 105.0 Est GFR (Non-Af Amer) 90.6 BUN/Creatinine Ratio 21.2 H Glucose 159 H POC Glucose 128 H Calcium 9.4 Phosphorus 4.7 Magnesium 2.7 H 12/05/20 12/05/20 12/05/20 11:44 16:56 20:06 WBC RBC Hgb Hct MCV MCH MCHC RDW Std Deviation RDW Coeff of Oxana Plt Count MPV Immature Gran % (Auto) Neut % (Auto) Lymph % (Auto) [place] % (Auto) Eos % (Auto) Baso % (Auto) Neut # (Auto) Lymph # (Auto) [place] # (Auto) Eos # (Auto) Baso # (Auto) Immature Gran # (Auto) Sodium Potassium Chloride Carbon Dioxide Anion Gap BUN Creatinine Est Cr Clr Drug Dosing Est GFR ( Amer) Est GFR (Non-Af Amer) BUN/Creatinine Ratio Glucose POC Glucose 131 H 103 H 189 H Calcium Phosphorus Magnesium PG Care Time/CCT Total # of Minutes Spent Total Time Spent with Patient: Total time spent is greater than 50% in coordination of care (as documented) at patient's floor/unit and/or counseling patient: Coding Level of Care Code 66722 Subseq Hosp Care Lvl 2 Diagnoses Acute respiratory failure with hypoxia J96.01 Pneumonia due to COVID-19 virus U07.1; J12.82 Diabetes mellitus type 2, uncontrolled E11.65 Anxiety F41.9 Elevated AST (SGOT) R74.01 DVT prophylaxis Z29.9
[2020-12-06 05:17] LABS: Basophils # (auto) 0.01 K/uL (0-0.2); Basophils % (auto) 0.1 %; Eosinophils # (auto) 0.01 K/uL (0-0.5); Eosinophils % (auto) 0.1 %; Hematocrit (blood only) 38.6 % (37-47); Hemoglobin 12.8 g/dL (12.0-16.0); Immature Granulocytes # (auto) 0.05 K/uL (0.00-0.02); Immature Granulocytes % (auto) 0.5 %; Lymphocytes # (auto) 1.22 K/uL (1.2-3.4); Lymphocytes % (auto) 13.3 %; Mean Corpuscular Hemoglobin 30.4 pg (25-34); Mean Corpuscular Hgb Conc 33.2 g/dL (32-36); Mean Corpuscular Volume 91.7 fL (80-100); Mean Platelet Volume 9.4 fL (7.4-10.4); Monocytes % (auto) 2.2 %; Neutrophils % (auto) 83.8 %; Platelet Count 633 K/uL (130-400); RDW Coefficient of Variation 12.7 % (11.5-14.5); RDW Standard Deviation 42.3 fL (36.4-46.3); Red Blood Count 4.21 M/uL (4.2-5.4); White Blood Count 9.19 K/uL (4.8-10.8)
[2020-12-06 05:33] LABS: Creatinine Clr Calc Pharmacy 69.2 ml/min; Est GFR (African American) 103.3; Est GFR (Non-African American) 89.1; Magnesium 2.8 mg/dl (1.8-2.4); Potassium 5.1 mmol/L (3.5-5.1)
[2020-12-06 05:34] LABS: Phosphorus 4.9 mg/dl (2.5-4.9)
--- NOTE | 2020-12-06 07:35 | Critical Care Progress Note ---
Date of Service December 06, 2020 Assessment & Plan (1) Pneumonia due to COVID-19 virus: Reason Critically Ill: 54-year-old female without significant PMHx who was admitted on 11/30 for COVID-19 pneumonia and transferred to the ICU on 12/03 for worsening respiratory status secondary to this. Currently improving and hemodynamically stable on 6-10L high-flow nasal cannula. Neuro - [facility] ICU: NEGATIVE - No Precedex for ~24 hours - continue to monitor CAM-ICU/mental status while in the ICU Cardiac - hemodynamically stable with appropriate BPs/HRs on 6L high-flow nasal cannula - closely monitor on tele while in ICU Respiratory - COVID-19 pneumonia, improving - satting >96% at rest on 6L nasal cannula - CXR 12/06 showing stable/slight-improvement in presence of multifocal airspace consolidations - continue Dexamethasone 20mg IV x5 days (today is day 4), followed by 10mg IV x5 days - s/p Azithromycin/Ceftriaxone, finished on 12/04 GI - clear liquid diet, advance as tolerated RENAL/LYTES - Renal function intact. No significant electrolyte derangement - Replace lytes as needed - No concerns at this time ENDO - A1c 6.8, glucose well-controlled on current regimen - continue SSI/basal dosing insulin, ICU hyperglycemia protocol HEME - Stable H&H - continue to monitor with serial CBCs ID - COVID-19 pneumonia - continue Dexamethasone as mentioned above - Monitor fever curve LINES/IV ACCESS - PIVx2 intact DVT Prophylaxis: Lovenox 40mg SQ BID (COVID-19 high-intensity dosing) Code Status: Full code Dispo: Patient is currently medically stable to be transferred out of the ICU. Thank you for allowing us to be part of this patient's care. Please refer to Dr. Carrillo's documentation for any further recommendations. (2) Hypoxia: (3) Multifocal pneumonia: Admission and Anticipated Discharge Date Admission Date: November 30, 2020 Supervising Physician Co-Signing Physician Notes Dr. Morocho was resident physician during care of patient. I separately evaluated patient for muñiz portions of the history and the exam. I was present during the critical portion of medical decision making, and I discussed the case with the resident. I generally agree with the findings and plan. Patient has significantly improved her oxygenation on 6 L nasal cannula able to eat, able to tolerate regular diet, will progress at this time. Discussed with hospitalist service stable for downgrade out of ICU to remain in isolation precautions. Subjective No acute events overnight. Off of Precedex for ~24 hours. Patient is maintaining oxygen saturation >94% at rest, on 6L nasal cannula. However, still drops to ~80% when sitting up and eating. Patient denies fever/chills, chest pain, SOB, abdominal pain, LE swelling. Review of Systems Review of Systems: Pertinent positives and negatives mentioned in HPI. Physical Exam Physical Exam: General: A&Ox3. NAD. Patient lying supine in bed - high-flow nasal cannula in place HEENT: Atraumatic, normocephalic. Pulm: Decreased air entry bilaterally, no wheezes or crackles, no increased work of breathing on current high-flow settings Cardiac: RRR, -mrg. Radial pulses intact and symmetrical. Abdominal: soft, non-tender, non-distended Skin: warm, dry Results & Data Results & Data ([facility]) Vital Signs (Past 12 Hours) Vital Signs Temp Pulse Resp BP Pulse Ox 12/06/20 07:00 52 L 20 96 12/06/20 06:24 52 L 22 113/68 96 12/06/20 05:24 55 L 17 117/60 95 12/06/20 04:24 55 L 22 138/75 99 12/06/20 03:24 54 L 18 112/66 93 12/06/20 02:24 54 L 20 139/73 99 12/06/20 01:24 46 L 14 140/69 99 12/06/20 00:24 36.7 C 47 L 16 134/70 100 12/05/20 23:24 44 L 17 128/66 99 12/05/20 22:24 45 L 21 126/67 99 12/05/20 21:25 47 L 17 116/62 99 12/05/20 21:24 46 L 20 116/62 99 12/05/20 20:24 36.6 C 61 20 117/62 98 Resident Activity Tracking Resident Involvement: Resident Care Provided Care Provided: Adult Hospital Medicine
[2020-12-06] MEDS: INSULIN ASPART 100 UNITS/ML 3 ML PEN SC SCH ×4 (08:40→21:08)
[2020-12-06] MEDS: ENOXAPARIN INJ 40 MG/0.4 ML SYR SQ SCH ×2 (08:42→21:00)
[2020-12-06] MEDS: guaiFENesin 600 MG TABCR PO SCH ×2 (08:42→20:59)
[2020-12-06] MEDS: INSULIN GLARGINE SOLOSTAR 100 UNITS/ML 3 ML PEN SC SCH ×2 (08:42→21:08)
--- NOTE | 2020-12-06 08:58 | XRay Report ---
XR chest 1V portable HISTORY: Follow-up. Covid pneumonia. COMPARISON: Chest 12/05/2020. FINDINGS: No pneumothorax. No pleural effusions. The heart is normal in size. Multifocal bilateral ai rspace opacities are again noted consistent with a pneumonia. This is stable to slightly improved com pared the prior study. IMPRESSION: Stable to slight improvement in the multifocal pneumonia. ACT 112: Negative or not required by law. Electronically signed by: Sanya Brantley M.D. 12/06/2020 8:57 AM
--- NOTE | 2020-12-06 09:26 | Hospitalist Progress Note ---
Date of Service December 06, 2020 Assessment & Plan (1) Chest pain: Following the visit I checked the following - troponin - negative d-dimer - 4880 (higher than previous) sed rate >90 crp 2 EKG - sinus tach, but no ST changes or elevation to suggest pericarditis or ischemia In light of high risk of PE - even despite lovenox for DVT proph - along with high d-dimer I elected to obtain CTA chest. Prelim read - no PE. No mention of pericardial effusion. Pain could be the COVID itself causing pleural irritation, mucous plugging, bronchospasm, reflux/esophageal irritation from high-dose steroids, anxiety, etc. doubt cardiac - no evidence of such. doubt musculoskeletal - no reproducibility on exam. Plan - * trial of bronchodilators tonight * buspar 5mg TID prn anxiety * add protonix 40mg daily in light of high-dose steroids and high risk of stress gastritis re-eval in am (2) Acute respiratory failure with hypoxia: severe, 2nd to COVID-19 pneumonia. continues to IMPROVE with FiO2 requirements continuing to drop daily. cxr this am with improved infiltrates. cont supportive care - see below. (3) Pneumonia due to COVID-19 virus: First symptoms on 11/15/2020. Outside of window for convalescent plasma or remdesivir. SEVERE disease with acute resp failure. Day #7 of IV dexamethasone - using high-dose protocol given severity of illness. Plan 10 days of Rx. s/p 5-day course of rocephin/zithromax to cover superimposed bacterial pneumonia as initial procal at admission was elevated (procal now normal). Wean FiO2 and "wall" HFNC as tolerated. Cont pulmonary toilet, self-proning, etc. see above re: chest pain. I would leave in isolation given the severity of her illness along with severe cough and higher risk of continued spreading of droplets. (4) Diabetes mellitus type 2, uncontrolled: new diagnosis. a1c 6.8%. cont lantus cont novolog will need DM education, etc. suspect we can likely use metformin BID at discharge in [place] of insulin. (or metformin + lantus) (5) Anxiety: mod-severe. start buspar 5mg tid prn. consider SSRI as well. long-standing issue (years). (6) Elevated AST (SGOT): 2nd COVID-19 infection -- now resolved. ALT wnl. (7) Tachycardia: SIRS vs anxiety vs pain vs combo of factors. CBC wnl. Check TSH in am. (8) DVT prophylaxis: Lovenox with 40 mg SQ twice daily -- higher dose due to increase risk of VTE w/ COVID. daughter Columba updated extensively by phone 12/04/20 and 12/06/20 sister Alberta updated by phone 12/05/20 ([phone]) support and prayer given to patient during bedside rounds once again. obtain PT, OT susannah. hopefully oob to chair tomorrow. consider d/c wilcox tomorrow. pt transferred from ICU to PCU today. Admission and Anticipated Discharge Date Admission Date: November 30, 2020 Subjective I saw the patient after she had been transferred from ICU to PCU. She was weaned off precedex infusion and O2 has continued to be cut down as well. When I entered her room she appeared anxious. She stated "I don't feel well." She stated that this am in the ICU she developed a chest "heaviness" over the sternal region. Denied that it was pain but again a heavy sensation. She stated further "I feel like something is in there that needs to come out." Denied that the heaviness was worse with laying flat or improved with sitting forward. Coughing doesn't seem to worsen it. Taking deep breaths doesn't seem to worsen it either. Denied reflux symptoms. She stated "I'm worried about my heart." After getting to the PCU her HR was noted to be >100 by staff. Review of Systems Constitutional: + fatigue and + weakness; no fever and no chills Ear, Nose, Mouth, Throat: throat clearing - frequent Respiratory: + cough and + dyspnea on exertion; no hemoptysis, no sputum production and no wheezing Cardiovascular: as per Subjective / HPI and + chest pain; no dyspnea at rest, no orthopnea and no edema Gastrointestinal: no abdominal pain, no nausea and no vomiting Physical Exam Constitutional: no acute distress and no altered mental status anxious appearing ENMT: external ear and nose normal, oropharynx normal (no thrush plaques) Respiratory: no respiratory distress Auscultation: + rales (1/2 way up back b/l but they are softer today ); no wheezes Cardiovascular: Rate/Rhythm: regular rhythm and + tachycardic Heart Sounds: normal S1 and normal S2; no murmur Vessels: posterior tibial pulses present and dorsalis pedis pulses present; no JVD Extremities: no edema Chest (Breasts): Additional Comments: no tenderness to palpation over sternal region Gastrointestinal (Abdomen): normal bowel sounds, soft, nontender, no hepatosplenomegaly Skin: no rashes, warm and dry Psychiatric: Orientation: alert and oriented x 3 Affect: + anxious affect Results & Data Results & Data ([facility]) Vital Signs (Past 12 Hours) Vital Signs Temp Pulse Resp BP Pulse Ox 12/06/20 08:55 36.9 C 12/06/20 08:00 101 H 19 81 L 12/06/20 07:24 53 L 22 126/81 96 12/06/20 07:00 52 L 20 96 12/06/20 06:24 52 L 22 113/68 96 12/06/20 05:24 55 L 17 117/60 95 12/06/20 04:24 55 L 22 138/75 99 12/06/20 03:24 54 L 18 112/66 93 12/06/20 02:24 54 L 20 139/73 99 12/06/20 01:24 46 L 14 140/69 99 12/06/20 00:24 36.7 C 47 L 16 134/70 100 12/05/20 23:24 44 L 17 128/66 99 12/05/20 22:24 45 L 21 126/67 99 Laboratory Results Laboratory Results - last 24 hr 12/05/20 12/05/20 12/05/20 11:44 16:56 20:06 WBC RBC Hgb Hct MCV MCH MCHC RDW Std Deviation RDW Coeff of [place] Plt Count MPV Immature Gran % (Auto) Neut % (Auto) Lymph % (Auto) Dougherty % (Auto) Eos % (Auto) Baso % (Auto) Neut # (Auto) Lymph # (Auto) Dougherty # (Auto) Eos # (Auto) Baso # (Auto) Immature Gran # (Auto) Sodium Potassium Chloride Carbon Dioxide Anion Gap BUN Creatinine Est Cr Clr Drug Dosing Est GFR ( Amer) Est GFR (Non-Af Amer) BUN/Creatinine Ratio Glucose POC Glucose 131 H 103 H 189 H Calcium Phosphorus Magnesium 12/06/20 12/06/20 12/06/20 05:06 05:06 07:51 WBC 9.19 RBC 4.21 Hgb 12.8 Hct 38.6 MCV 91.7 MCH 30.4 MCHC 33.2 RDW Std Deviation 42.3 RDW Coeff of [place]ana 12.7 Plt Count 633 H MPV 9.4 Immature Gran % (Auto) 0.5 Neut % (Auto) 83.8 Lymph % (Auto) 13.3 Dougherty % (Auto) 2.2 Eos % (Auto) 0.1 Baso % (Auto) 0.1 Neut # (Auto) 7.70 H Lymph # (Auto) 1.22 Dougherty # (Auto) 0.20 Eos # (Auto) 0.01 Baso # (Auto) 0.01 Immature Gran # (Auto) 0.05 H Sodium 137 Potassium 5.1 Chloride 103 Carbon Dioxide 30 Anion Gap 4.0 BUN 15 Creatinine 0.75 Est Cr Clr Drug Dosing 69.2 Est GFR ( Amer) 103.3 Est GFR (Non-Af Amer) 89.1 BUN/Creatinine Ratio 20.0 Glucose 164 H POC Glucose 122 H Calcium 9.0 Phosphorus 4.9 Magnesium 2.8 H PG Care Time/CCT Total # of Minutes Spent Total Time Spent with Patient: Total time spent is greater than 50% in coordination of care (as documented) at patient's floor/unit and/or counseling patient: Coding Level of Care Code 89445 Subseq Hosp Care Lvl 3 Diagnoses Chest pain R07.9 Acute respiratory failure with hypoxia J96.01 Pneumonia due to COVID-19 virus U07.1; J12.82 Diabetes mellitus type 2, uncontrolled E11.65 Anxiety F41.9 Elevated AST (SGOT) R74.01 Tachycardia R00.0 DVT prophylaxis Z29.9
--- NOTE | 2020-12-06 11:41 | Billing Data ---
Date of Service December 06, 2020 Coding Level of Care Code 88948 Subseq Hosp Care Lvl 3
[2020-12-06] MEDS: dexAMETHasone 20 MG in DEXTROSE 5% 25 ML IV SCH (17:00)
[2020-12-06] MEDS ORDERED: PANTOprazole 40 MG TAB PO STA (17:03)
[2020-12-06] MEDS ORDERED: XOPENEX/ATROVENT 1.25mg/0.5MG NEB COMBO NEB ONE (17:05)
[2020-12-06] MEDS ORDERED: LEVALBUTEROL 1.25MG/0.5ML NEB INH ONE (17:15)
[2020-12-06] MEDS ORDERED: IPRATROPIUM BROMIDE NEB SOLN 0.02% 2.5 ML VIAL INH ONE (17:15)
[2020-12-06 18:17] LABS: C Reactive Protein 2.09 mg/dl (0-0.29); Troponin I < 0.015 ng/ml (0-0.045)
[2020-12-06 18:54] LABS: D Dimer 4880 ug/L FEU (0-500)
[2020-12-06] MEDS ORDERED: OPTIRAY 320 125ml IV ONE (21:29)
[2020-12-06] MEDS ORDERED: XOPENEX/ATROVENT 1.25mg/0.5MG NEB COMBO NEB PRN (22:03)
[2020-12-06] MEDS ORDERED: BENZONATATE 100 MG CAPSULE PO PRN (23:11)
[2020-12-07] MEDS ORDERED: IPRATROPIUM BROMIDE NEB SOLN 0.02% 2.5 ML VIAL INH PRN (01:00)
[2020-12-07] MEDS ORDERED: LEVALBUTEROL 1.25MG/0.5ML NEB INH PRN (01:00)
[2020-12-07 07:22] LABS: Hematocrit (blood only) 37.2 % (37-47); Hemoglobin 12.6 g/dL (12.0-16.0); Immature Granulocytes # (auto) 0.04 K/uL (0.00-0.02); Immature Granulocytes % (auto) 0.4 %; Lymphocytes # (auto) 1.27 K/uL (1.2-3.4); Mean Corpuscular Hemoglobin 30.7 pg (25-34); Mean Corpuscular Hgb Conc 33.9 g/dL (32-36); Mean Corpuscular Volume 90.5 fL (80-100); Mean Platelet Volume 9.6 fL (7.4-10.4); Monocytes # (auto) 0.62 K/uL (0.11-0.59); Monocytes % (auto) 5.9 %; Neutrophils # (auto) 8.61 K/uL (1.4-6.5); Neutrophils % (auto) 81.7 %; Platelet Count 605 K/uL (130-400); RDW Coefficient of Variation 12.8 % (11.5-14.5); RDW Standard Deviation 41.8 fL (36.4-46.3); Red Blood Count 4.11 M/uL (4.2-5.4); White Blood Count 10.54 K/uL (4.8-10.8)
[2020-12-07 07:50] LABS: BUN Creatinine Ratio 25.8 (10-20); Calcium 8.8 mg/dl (8.5-10.1); Creatinine Clr Calc Pharmacy 81.8 ml/min; Est GFR (Non-African American) 99.2; Potassium 4.5 mmol/L (3.5-5.1)
[2020-12-07 08:00] LABS: Thyroid Stimulating Hormone 0.131 uIu/ml (0.300-4.500)
[2020-12-07] MEDS: PANTOprazole 40 MG TAB PO SCH (08:12)
[2020-12-07] MEDS: busPIRone 5 MG TAB PO PRN (08:12)
[2020-12-07] MEDS: ENOXAPARIN INJ 40 MG/0.4 ML SYR SQ SCH ×2 (08:13→20:58)
[2020-12-07] MEDS: INSULIN ASPART 100 UNITS/ML 3 ML PEN SC SCH ×4 (08:13→22:56)
[2020-12-07] MEDS: guaiFENesin 600 MG TABCR PO SCH ×2 (08:13→20:58)
[2020-12-07 08:15] LABS: T4 Free Thyroxine 1.15 ng/dl (0.8-1.6)
--- NOTE | 2020-12-07 09:00 | CT Scan Report ---
CHEST CTA for PULMONARY ARTERIES CT DOSE: 266.24 mGy.cm HISTORY: COVID, tachycardia, atypical chest pain; r/o PE TECHNIQUE: Multiaxial CT images of the chest were performed following the intravenous administration of contrast to evaluate the pulmonary arteries. Maximal intensity projection images were also obtaine d. A dose lowering technique was utilized adhering to the principles of ALARA. COMPARISON STUDY: Chest CTA 11/30/2020. FINDINGS: Normal caliber thoracic aorta with no evidence for dissection. The heart is normal in size. No pleural or pericardial effusions. No filling defects within the pulmonary arteries to suggest pul monary embolus. A few prominent hilar lymph nodes which are likely reactive. No significant mediastin al lymphadenopathy. Limited views the upper abdomen demonstrate normal liver, spleen, and adrenal gla nds. No suspicious lytic or blastic osseous lesions. No pneumothorax. The central airways are patent. Multifocal consolidative airspace opacities most pronounced within the lower lobes. This is consiste nt with a pneumonia. These airspace opacities have now progressed from groundglass to consolidation. The overall volume of the airspace opacities is similar to the prior study. IMPRESSION: 1. No evidence for pulmonary embolus. 2. Bilateral consolidative airspace opacities consistent with a multifocal pneumonia. ACT 112: Negative or not required by law. Electronically signed by: Sanya Brantley M.D. 12/07/2020 8:59 AM
[2020-12-07] MEDS: INSULIN GLARGINE SOLOSTAR 100 UNITS/ML 3 ML PEN SC SCH ×2 (09:14→22:55)
--- NOTE | 2020-12-07 12:03 | Hospitalist Progress Note ---
Date of Service December 07, 2020 Assessment & Plan (1) Acute respiratory failure with hypoxia: severe, 2nd to COVID-19 pneumonia. Much improved with prone positioning but still requiring 10-15L HFNC with sitting or lying supine -wean off O2 as tolerated cxr evelyn repeat with improved infiltrates. -add flutter valve, incentive spirometry continue decadron continue albuterol, ipratropium inhalers prn (2) Pneumonia due to COVID-19 virus: First symptoms on 11/15/2020. Outside of window for convalescent plasma or remdesivir. SEVERE disease with acute resp failure. Day #8 of IV dexamethasone - using high-dose protocol given severity of illness. Plan 10 days of Rx. s/p 5-day course of rocephin/zithromax to cover superimposed bacterial pneumonia as initial procal at admission was elevated (procal now normal). Wean FiO2 and "wall" HFNC as tolerated. Cont pulmonary toilet, self-proning, etc. see above re: chest pain. I would leave in isolation given the severity of her illness along with severe cough and higher risk of continued spreading of droplets. (3) Chest pain: Following the visit I checked the following - troponin - negative d-dimer - 4880 (higher than previous) sed rate >90 crp 2 EKG - sinus tach, but no ST changes or elevation to suggest pericarditis or ischemia In light of high risk of PE - even despite lovenox for DVT proph - along with high d-dimer- obtained CTA chest. Negative for PE. No mention of pericardial effusion. With consolidated bilateral opacities c/w PNA Pain could be the COVID itself causing pleural irritation, mucous plugging, bronchospasm, reflux/esophageal irritation from high-dose steroids, anxiety, etc. doubt cardiac - no evidence of such. doubt musculoskeletal - no reproducibility on exam. Now resolved except for heaviness in chest with deep breaths and cough -continue bronchodilators prn -continue buspar 5mg TID prn anxiety -added protonix 40mg daily in light of high-dose steroids and high risk of stress gastritis (4) Diabetes mellitus type 2, uncontrolled: new diagnosis. a1c 6.8%. cont lantus cont novolog will need DM education, etc. suspect we can likely use metformin BID at discharge in lieu of insulin. (or metformin + lantus) (5) Anxiety: mod-severe. started buspar 5mg tid prn. consider SSRI as well but pt says she does not want to take anything for it. long-standing issue (years). (6) Elevated AST (SGOT): 2nd COVID-19 infection -- now resolved. ALT wnl. (7) Tachycardia: SIRS vs anxiety vs pain vs combo of factors. CBC wnl. TSH low but FT4 normal with 5 beat run of NSVT on tele not symptomatic and not concerning at this time follow on tele (8) DVT prophylaxis: Lovenox with 40 mg SQ twice daily -- higher dose due to increase risk of VTE w/ COVID. daughter Columba updated extensively by phone 12/04/20 and 12/06/20 sister Alberta updated by phone 12/05/20 ([phone]) obtain PT, OT susannah. Dispo-continued stay on PCU, on COVID precautions Admission and Anticipated Discharge Date Admission Date: November 30, 2020 Subjective Pt reports stil coughing and SOB with minimal exertion but is OOB to chair. Remains on wall HFNC and was on 3L all night while prone. But when not prone, requires 10L. Denies chest pain, no N/V/D. Is mostly worried about her father with COVID in the room next to hers. Waldron removed today. Reports she is worried about her fast heart beat. Notes that she is always quite anxious. Tele with ST, NSR, rates 60s-100s, 5 beat run VT Review of Systems Review of Systems: All systems reviewed & are unremarkable except as noted in HPI & below Physical Exam Constitutional: WD/WN, vitals as above Eyes: + anicteric sclerae ENMT: external ear and nose normal, oropharynx normal Neck: trachea midline, no thyromegaly Respiratory: normal respiratory effort, lungs clear to auscultation Cardiovascular: RRR, no murmur, no edema Chest (Breasts): Chest: normal inspection of chest Gastrointestinal (Abdomen): normal bowel sounds, soft, nontender, no hepatosplenomegaly Musculoskeletal: Extremities: extremities normal to inspection; no cyanosis and no clubbing Skin: no rashes, warm and dry Neurologic: moves all extremities and awake; no focal motor deficits Psychiatric: Orientation: alert, oriented x 3 and cooperative Speech: normal rate/rhythm/volume of speech Affect: + anxious affect Lymphatic: no lymphedema Results & Data Results & Data ([facility]) Vital Signs (Past 12 Hours) Vital Signs Temp Pulse Pulse Resp BP Pulse Ox Pulse Ox 12/07/20 11:35 89 L 12/07/20 11:00 12/07/20 08:05 36.7 C 97 H 20 124/69 90 12/07/20 08:00 60 12/07/20 03:46 36.9 C 80 20 114/82 95 Pulse Ox Pulse Ox 12/07/20 11:35 86 L 12/07/20 11:00 91 12/07/20 08:05 12/07/20 08:00 12/07/20 03:46 Laboratory Results 12/07/20 12/07/20 12/07/20 Range/Units 20:44 16:34 11:54 WBC (4.8-10.8) K/uL RBC (4.2-5.4) M/uL Hgb (12.0-16.0) g/dL Hct (37-47) % MCV (80-100) fL MCH (25-34) pg MCHC (32-36) g/dL RDW Std Deviation (36.4-46.3) fL RDW Coeff of Oxana (11.5-14.5) % Plt Count (130-400) K/uL MPV (7.4-10.4) fL Immature Gran % (Auto) % Neut % (Auto) % Lymph % (Auto) % Centre % (Auto) % Eos % (Auto) % Baso % (Auto) % Neut # (Auto) (1.4-6.5) K/uL Lymph # (Auto) (1.2-3.4) K/uL Centre # (Auto) (0.11-0.59) K/uL Eos # (Auto) (0-0.5) K/uL Baso # (Auto) (0-0.2) K/uL Immature Gran # (Auto) (0.00-0.02) K/uL Sodium (136-145) mmol/L Potassium (3.5-5.1) mmol/L Chloride (98-107) mmol/L Carbon Dioxide (21-32) mmol/L Anion Gap (3-11) BUN (7-18) mg/dl Creatinine (0.6-1.2) mg/dl Est Cr Clr Drug Dosing ml/min Est GFR ( Amer) Est GFR (Non-Af Amer) BUN/Creatinine Ratio (10-20) Glucose (70-99) mg/dl POC Glucose 178 H 90 104 H (70-99) mg/dl Calcium (8.5-10.1) mg/dl TSH (0.300-4.500) uIu/ml Free T4 (0.8-1.6) ng/dl 12/07/20 12/07/20 12/07/20 Range/Units 08:02 07:07 07:07 WBC 10.54 (4.8-10.8) K/uL RBC 4.11 L (4.2-5.4) M/uL Hgb 12.6 (12.0-16.0) g/dL Hct 37.2 (37-47) % MCV 90.5 (80-100) fL MCH 30.7 (25-34) pg MCHC 33.9 (32-36) g/dL RDW Std Deviation 41.8 (36.4-46.3) fL RDW Coeff of Oxana 12.8 (11.5-14.5) % Plt Count 605 H (130-400) K/uL MPV 9.6 (7.4-10.4) fL Immature Gran % (Auto) 0.4 % Neut % (Auto) 81.7 % Lymph % (Auto) 12.0 % Centre % (Auto) 5.9 % Eos % (Auto) 0.0 % Baso % (Auto) 0.0 % Neut # (Auto) 8.61 H (1.4-6.5) K/uL Lymph # (Auto) 1.27 (1.2-3.4) K/uL Centre # (Auto) 0.62 H (0.11-0.59) K/uL Eos # (Auto) 0.00 (0-0.5) K/uL Baso # (Auto) 0.00 (0-0.2) K/uL Immature Gran # (Auto) 0.04 H (0.00-0.02) K/uL Sodium 137 (136-145) mmol/L Potassium 4.5 (3.5-5.1) mmol/L Chloride 103 (98-107) mmol/L Carbon Dioxide 30 (21-32) mmol/L Anion Gap 4.0 (3-11) BUN 17 (7-18) mg/dl Creatinine 0.65 (0.6-1.2) mg/dl Est Cr Clr Drug Dosing 81.8 ml/min Est GFR ( Amer) 115.0 Est GFR (Non-Af Amer) 99.2 BUN/Creatinine Ratio 25.8 H (10-20) Glucose 132 H (70-99) mg/dl POC Glucose 121 H (70-99) mg/dl Calcium 8.8 (8.5-10.1) mg/dl TSH 0.131 L (0.300-4.500) uIu/ml Free T4 1.15 (0.8-1.6) ng/dl PG Care Time/CCT Total # of Minutes Spent Total Time Spent with Patient: Total time spent is greater than 50% in coordination of care (as documented) at patient's floor/unit and/or counseling patient: Coding Level of Care Code 93864 Subseq Hosp Care Lvl 3 Diagnoses Acute respiratory failure with hypoxia J96.01 Pneumonia due to COVID-19 virus U07.1; J12.82 Chest pain R07.9 Diabetes mellitus type 2, uncontrolled E11.65 Anxiety F41.9 Elevated AST (SGOT) R74.01 Tachycardia R00.0 DVT prophylaxis Z29.9
--- NOTE | 2020-12-07 14:35 | Palliative Care Progress Note ---
Date of Service December 07, 2020 Assessment & Plan (1) Palliative care encounter: Terri has shown marked improvement over the past few days. She was able to tolerate pronation therapy while on HiFlow and has been transitioned out of the ICU. She is now continuing to tolerate HiFlow 15L with supplemental oxygenation remaining > 90%. She is able to tolerate eating and is getting out of bed with improved oxygenation overall. She does have intermittent anxiety that does contribute to any shortness of breath that occurs. Her CXR is showing marked infiltrate improvement as well. As previously stated; She was agreeable to intubation should she become too hypoxic and tired. Additionally, she was amenable to a tracheostomy if it would provide her with a group home recovery. She did name her daughter Azeb as her decision maker in the event she is unable to make her own medical decisions. She was clear to remain a full code in the event of cardiac or respiratory arrest. For now as she is showing stabilization and overall improvement, palliative will sign off on this individual. Should she decline and you have further assistance request, please re-involve us. (2) Hypoxia: Currently remains on HiFlow O2, 15 L. SpO2 >90%. Infiltrates improving on CXR. (3) Pneumonia due to COVID-19 virus: Admission and Anticipated Discharge Date Admission Date: November 30, 2020 Subjective Terri states she is feeling much better each day. She denies difficulty with eating and feels her breathing is improving She is mostly anxious now about her father and his progression of illness. See A/P for further details. Review of Systems Review of Systems: [place] [facility] Assessment Scale: Tiredness: 0/3 Shortness of breath: 2/3 Anxiety: 1/3 Lack of appetite: 0/3 Palliative Performance Scale: 70% Physical Exam Constitutional: well developed, well nourished, + thin and cooperative Respiratory: + respiratory distress Auscultation: + diminished lung sounds and + rhonchi Cardiovascular: Rate/Rhythm: regular rate and regular rhythm Heart Sounds: normal S1 and normal S2 Extremities: normal capillary refill; no edema Gastrointestinal (Abdomen): normal bowel sounds, soft, nontender, no hepatosplenomegaly Skin: normal turgor and + pallor Psychiatric: A+Ox3, euthymic affect Lymphatic: no cervical or axillary lymphadenopathy Results & Data ([facility]) Vital Signs (Past 12 Hours) Vital Signs Temp Pulse Pulse Resp BP Pulse Ox Pulse Ox 12/07/20 12:49 91 12/07/20 12:00 36.5 C 106 H 18 97/64 L 93 12/07/20 11:35 89 L 12/07/20 11:00 12/07/20 08:05 36.7 C 97 H 20 124/69 90 12/07/20 08:00 60 12/07/20 03:46 36.9 C 80 20 114/82 95 Pulse Ox Pulse Ox 12/07/20 12:49 12/07/20 12:00 12/07/20 11:35 86 L 12/07/20 11:00 91 12/07/20 08:05 12/07/20 08:00 12/07/20 03:46 PG Care Time/CCT Total # of Minutes Spent Total Time Spent with Patient: Total time spent is greater than 50% in coordination of care (as documented) at patient's floor/unit and/or counseling patient: Total time spent 25 minutes with > 50% of that time spent assessing the patient, discussing goals of care and collaborating with IDT Coding Level of Care Code 34416 Subseq Hosp Care Lvl 2 Diagnoses Palliative care encounter Z51.5 Hypoxia R09.02 Pneumonia due to COVID-19 virus U07.1; J12.82 Time Spent (min) 25
--- NOTE | 2020-12-07 16:04 | Electrocardiogram Report ---
Test Reason : Blood Pressure : / mmHG Vent. Rate : 121 BPM Atrial Rate : 121 BPM P-R Int : 148 ms QRS Dur : 066 ms QT Int : 294 ms P-R-T Axes : 054 001 076 degrees QTc Int : 417 ms Poor data quality, interpretation may be adversely affected Sinus tachycardia Abnormal ECG When compared with ECG of 30-NOV-2020 11:15, Nonspecific T wave abnormality, worse in Lateral leads Confirmed by Alf Finley ([id number] on 12/07/2020 4:04:46 PM Referred By: REFERRED SELF Confirmed By:Kevin Finley
[2020-12-07] MEDS: dexAMETHasone 20 MG in DEXTROSE 5% 25 ML IV SCH (17:56)
[2020-12-08 08:06] LABS: Basophils # (auto) 0.01 K/uL (0-0.2); Basophils % (auto) 0.1 %; Hematocrit (blood only) 40.8 % (37-47); Hemoglobin 13.8 g/dL (12.0-16.0); Immature Granulocytes # (auto) 0.04 K/uL (0.00-0.02); Immature Granulocytes % (auto) 0.5 %; Lymphocytes # (auto) 1.54 K/uL (1.2-3.4); Lymphocytes % (auto) 17.6 %; Mean Corpuscular Hemoglobin 30.4 pg (25-34); Mean Corpuscular Hgb Conc 33.8 g/dL (32-36); Mean Corpuscular Volume 89.9 fL (80-100); Mean Platelet Volume 10.1 fL (7.4-10.4); Monocytes # (auto) 0.43 K/uL (0.11-0.59); Monocytes % (auto) 4.9 %; Neutrophils # (auto) 6.72 K/uL (1.4-6.5); Neutrophils % (auto) 76.9 %; Platelet Count 705 K/uL (130-400); RDW Standard Deviation 42.5 fL (36.4-46.3); Red Blood Count 4.54 M/uL (4.2-5.4); White Blood Count 8.74 K/uL (4.8-10.8)
[2020-12-08 08:39] LABS: Albumin Level 2.6 gm/dl (3.4-5.0); BUN Creatinine Ratio 23.9 (10-20); C Reactive Protein 1.61 mg/dl (0-0.29); Calcium 9.6 mg/dl (8.5-10.1); Creatinine Clr Calc Pharmacy 66.2 ml/min; Est GFR (Non-African American) 83.7; Potassium 4.3 mmol/L (3.5-5.1)
[2020-12-08 08:41] LABS: Albumin Globulin Ratio 0.5 (0.9-2); Bilirubin,Total 0.7 mg/dl (0.2-1); Globulin 5.6 gm/dl (2.5-4.0); Total Protein 8.2 gm/dl (6.4-8.2)
[2020-12-08] MEDS: PANTOprazole 40 MG TAB PO SCH (08:48)
[2020-12-08] MEDS: guaiFENesin 600 MG TABCR PO SCH ×2 (08:48→20:57)
[2020-12-08] MEDS: ENOXAPARIN INJ 40 MG/0.4 ML SYR SQ SCH ×2 (08:49→20:58)
[2020-12-08] MEDS: INSULIN GLARGINE SOLOSTAR 100 UNITS/ML 3 ML PEN SC SCH ×2 (09:00→23:58)
[2020-12-08] MEDS: INSULIN ASPART 100 UNITS/ML 3 ML PEN SC SCH ×4 (09:00→23:58)
[2020-12-08] MEDS: busPIRone 5 MG TAB PO PRN (13:03)
--- NOTE | 2020-12-08 17:11 | Hospitalist Progress Note ---
Date of Service December 08, 2020 Assessment & Plan (1) Acute respiratory failure with hypoxia: severe, 2nd to COVID-19 pneumonia. Much improved with prone positioning when tolerated; is weaned down today to 8 L of the wall high flow nasal cannula, however did drop to 80% with talking while on the 8 L and had to be increased to [address] angiogram chest on 12/06 shows now more consolidated bilateral lower lobe opacities -Continue with flutter valve, incentive spirometry continue decadron high-dose protocol-now on 10 mg daily continue albuterol, ipratropium inhalers prn -Wean off oxygen as able to Continue to encourage out of bed and prone positioning (2) Pneumonia due to COVID-19 virus: First symptoms on 11/15/2020. Outside of window for convalescent plasma or remdesivir. SEVERE disease with acute resp failure. Day #9 of IV dexamethasone - using high-dose protocol given severity of illness. Plan 10 days of Rx. With hypoxia as above s/p 5-day course of rocephin/zithromax to cover superimposed bacterial pneumonia as initial procal at admission was elevated (procal now normal). I would leave in isolation given the severity of her illness along with severe cough and higher risk of continued spreading of droplets. (3) Chest pain: Had chest pain on 12/06 troponin - negative d-dimer - 4880 (higher than previous) sed rate >90 crp 2 EKG - sinus tach, but no ST changes or elevation to suggest pericarditis or ischemia In light of high risk of PE - even despite lovenox for DVT proph - along with high d-dimer- obtained CTA chest. Negative for PE. No mention of pericardial effusion. With consolidated bilateral opacities c/w PNA Pain could be the COVID itself causing pleural irritation, mucous plugging, bronchospasm, reflux/esophageal irritation from high-dose steroids, anxiety, etc. doubt cardiac - no evidence of such. doubt musculoskeletal - no reproducibility on exam. Now resolved except for heaviness in chest with deep breaths and cough -continue bronchodilators prn -continue buspar 5mg TID prn anxiety -Continue on protonix 40mg daily in light of high-dose steroids and high risk of stress gastritis (4) Diabetes mellitus type 2, uncontrolled: new diagnosis this admission. a1c 6.8%. cont lantus cont novolog will need DM education, etc. suspect we can likely use metformin BID at discharge in lieu of insulin. (or metformin + lantus) (5) Anxiety: mod-severe. Did require Precedex drip while on high flow nasal cannula in the ICU started buspar 5mg tid prn. consider SSRI as well but pt says she does not want to take anything for it. long-standing issue (years). (6) Elevated AST (SGOT): 2nd COVID-19 infection -- now resolved. ALT wnl. (7) Tachycardia: SIRS vs anxiety vs pain vs combo of factors. Her heart rate is in the 50s while she sleeps CBC wnl. TSH low but FT4 normal with 5 beat run of NSVT on tele not symptomatic on one occasion and not concerning at this time follow on tele (8) Thrombocytosis: Platelets continue to climb and are up to 705 today This is a reactive thrombocytosis due to inflammation Follow CBC She is on Lovenox twice daily, but could consider adding aspirin (9) DVT prophylaxis: Lovenox with 40 mg SQ twice daily -- higher dose due to increase risk of VTE w/ COVID. daughter Columba updated extensively by phone 12/04/20 and 12/06/20 sister Alberta updated by phone 12/05/20 ([phone]) obtain PT, KIP davalos. Dispo-continued stay on PCU, on COVID precautions Admission and Anticipated Discharge Date Admission Date: November 30, 2020 Subjective Patient had just been transferred to a new room on the [facility] when I saw her and have been moving around a bit. She reported being significantly fatigued today after very minimal exertion but did get out of bed to chair twice to eat meals. While I was talking to her, her pulse ox went to 80-81% on 8 L and I bumped her up to 15 L to get her back to 90% which took about 5 minutes. She denies any chest pain. She still has a dry cough. She is not eating much. She had a small bowel movement today after being given a laxative. She is still quite anxious. Telemetry with normal sinus rhythm with rates in the 70s during the day, 50s overnight, and as high as the 130s when she has minimal exertion, some PACs Review of Systems Review of Systems: All systems reviewed & are unremarkable except as noted in HPI & below Physical Exam Constitutional: WD/WN, vitals as above Eyes: + anicteric sclerae Neck: trachea midline, no thyromegaly Respiratory: normal respiratory effort, lungs clear to auscultation Cardiovascular: RRR, no murmur, no edema Chest (Breasts): Chest: normal inspection of chest Gastrointestinal (Abdomen): normal bowel sounds, soft, nontender, no hepatosplenomegaly Musculoskeletal: Extremities: extremities normal to inspection; no cyanosis and no clubbing Skin: no rashes, warm and dry Neurologic: moves all extremities and awake; no focal motor deficits Psychiatric: Orientation: alert, oriented x 3 and cooperative Speech: normal rate/rhythm/volume of speech Affect: + anxious affect Lymphatic: no lymphedema Results & Data Results & Data ([facility]) Vital Signs (Past 12 Hours) Vital Signs Temp Pulse Pulse Resp BP Pulse Ox Pulse Ox 12/08/20 15:44 36.6 C 94 H 19 119/67 92 12/08/20 11:15 36.6 C 56 L 19 106/68 96 12/08/20 11:00 91 12/08/20 08:00 36.5 C 67 84 20 104/65 85 L Laboratory Results 12/08/20 12/08/20 12/08/20 Range/Units 17:02 11:14 07:58 WBC (4.8-10.8) K/uL RBC (4.2-5.4) M/uL Hgb (12.0-16.0) g/dL Hct (37-47) % MCV (80-100) fL MCH (25-34) pg MCHC (32-36) g/dL RDW Std Deviation (36.4-46.3) fL RDW Coeff of Oxana (11.5-14.5) % Plt Count (130-400) K/uL MPV (7.4-10.4) fL Immature Gran % (Auto) % Neut % (Auto) % Lymph % (Auto) % [place] % (Auto) % Eos % (Auto) % Baso % (Auto) % Neut # (Auto) (1.4-6.5) K/uL Lymph # (Auto) (1.2-3.4) K/uL [place] # (Auto) (0.11-0.59) K/uL Eos # (Auto) (0-0.5) K/uL Baso # (Auto) (0-0.2) K/uL Immature Gran # (Auto) (0.00-0.02) K/uL Sodium (136-145) mmol/L Potassium (3.5-5.1) mmol/L Chloride (98-107) mmol/L Carbon Dioxide (21-32) mmol/L Anion Gap (3-11) BUN (7-18) mg/dl Creatinine (0.6-1.2) mg/dl Est Cr Clr Drug Dosing ml/min Est GFR ( Amer) Est GFR (Non-Af Amer) BUN/Creatinine Ratio (10-20) Glucose (70-99) mg/dl POC Glucose 73 244 H 141 H (70-99) mg/dl Calcium (8.5-10.1) mg/dl Total Bilirubin (0.2-1) mg/dl AST (15-37) U/L ALT (12-78) U/L Alkaline Phosphatase (45-117) U/L C-Reactive Protein (0-0.29) mg/dl Total Protein (6.4-8.2) gm/dl Albumin (3.4-5.0) gm/dl Globulin (2.5-4.0) gm/dl Albumin/Globulin Ratio (0.9-2) 12/08/20 12/08/20 12/07/20 Range/Units 07:36 07:36 20:44 WBC 8.74 (4.8-10.8) K/uL RBC 4.54 (4.2-5.4) M/uL Hgb 13.8 (12.0-16.0) g/dL Hct 40.8 (37-47) % MCV 89.9 (80-100) fL MCH 30.4 (25-34) pg MCHC 33.8 (32-36) g/dL RDW Std Deviation 42.5 (36.4-46.3) fL RDW Coeff of Oxana 13.0 (11.5-14.5) % Plt Count 705 H (130-400) K/uL MPV 10.1 (7.4-10.4) fL Immature Gran % (Auto) 0.5 % Neut % (Auto) 76.9 % Lymph % (Auto) 17.6 % [place] % (Auto) 4.9 % Eos % (Auto) 0.0 % Baso % (Auto) 0.1 % Neut # (Auto) 6.72 H (1.4-6.5) K/uL Lymph # (Auto) 1.54 (1.2-3.4) K/uL [place] # (Auto) 0.43 (0.11-0.59) K/uL Eos # (Auto) 0.00 (0-0.5) K/uL Baso # (Auto) 0.01 (0-0.2) K/uL Immature Gran # (Auto) 0.04 H (0.00-0.02) K/uL Sodium 135 L (136-145) mmol/L Potassium 4.3 (3.5-5.1) mmol/L Chloride 99 (98-107) mmol/L Carbon Dioxide 31 (21-32) mmol/L Anion Gap 5.0 (3-11) BUN 19 H (7-18) mg/dl Creatinine 0.79 (0.6-1.2) mg/dl Est Cr Clr Drug Dosing 66.2 ml/min Est GFR ( Amer) 97.0 Est GFR (Non-Af Amer) 83.7 BUN/Creatinine Ratio 23.9 H (10-20) Glucose 127 H (70-99) mg/dl POC Glucose 178 H (70-99) mg/dl Calcium 9.6 (8.5-10.1) mg/dl Total Bilirubin 0.7 (0.2-1) mg/dl AST 17 (15-37) U/L ALT 20 (12-78) U/L Alkaline Phosphatase 74 (45-117) U/L C-Reactive Protein 1.61 H (0-0.29) mg/dl Total Protein 8.2 (6.4-8.2) gm/dl Albumin 2.6 L (3.4-5.0) gm/dl Globulin 5.6 H (2.5-4.0) gm/dl Albumin/Globulin Ratio 0.5 L (0.9-2) PG Care Time/CCT Total # of Minutes Spent Total Time Spent with Patient: Total time spent is greater than 50% in coordination of care (as documented) at patient's floor/unit and/or counseling patient: Coding Level of Care Code 52635 Subseq Hosp Care Lvl 3 Diagnoses Acute respiratory failure with hypoxia J96.01 Pneumonia due to COVID-19 virus U07.1; J12.82 Chest pain R07.9 Diabetes mellitus type 2, uncontrolled E11.65 Anxiety F41.9 Elevated AST (SGOT) R74.01 Tachycardia R00.0 Thrombocytosis D47.3 DVT prophylaxis Z29.9
[2020-12-08] MEDS: dexAMETHasone 10 MG in SYRINGE 0 ML IV SCH (18:14)
[2020-12-09 06:51] LABS: Basophils # (auto) 0.01 K/uL (0-0.2); Basophils % (auto) 0.1 %; Hematocrit (blood only) 37.6 % (37-47); Hemoglobin 12.6 g/dL (12.0-16.0); Immature Granulocytes # (auto) 0.04 K/uL (0.00-0.02); Immature Granulocytes % (auto) 0.5 %; Lymphocytes # (auto) 1.26 K/uL (1.2-3.4); Lymphocytes % (auto) 15.3 %; Mean Corpuscular Hemoglobin 30.4 pg (25-34); Mean Corpuscular Hgb Conc 33.5 g/dL (32-36); Mean Corpuscular Volume 90.8 fL (80-100); Monocytes # (auto) 0.49 K/uL (0.11-0.59); Monocytes % (auto) 5.9 %; Neutrophils # (auto) 6.46 K/uL (1.4-6.5); Neutrophils % (auto) 78.2 %; Platelet Count 496 K/uL (130-400); Red Blood Count 4.14 M/uL (4.2-5.4); White Blood Count 8.26 K/uL (4.8-10.8)
[2020-12-09 07:25] LABS: Albumin Level 2.5 gm/dl (3.4-5.0); BUN Creatinine Ratio 27.4 (10-20); Calcium 8.6 mg/dl (8.5-10.1); Creatinine Clr Calc Pharmacy 81.7 ml/min; Est GFR (Non-African American) 99.2; Potassium 4.8 mmol/L (3.5-5.1)
[2020-12-09 07:27] LABS: Albumin Globulin Ratio 0.5 (0.9-2); Bilirubin,Total 0.5 mg/dl (0.2-1); Globulin 4.8 gm/dl (2.5-4.0); Total Protein 7.3 gm/dl (6.4-8.2)
[2020-12-09] MEDS: busPIRone 5 MG TAB PO PRN (09:57)
[2020-12-09] MEDS: ENOXAPARIN INJ 40 MG/0.4 ML SYR SQ SCH ×2 (09:58→21:00)
[2020-12-09] MEDS: guaiFENesin 600 MG TABCR PO SCH ×2 (09:58→21:00)
[2020-12-09] MEDS: PANTOprazole 40 MG TAB PO SCH (09:58)
[2020-12-09] MEDS: INSULIN ASPART 100 UNITS/ML 3 ML PEN SC SCH ×4 (10:42→21:30)
[2020-12-09] MEDS: INSULIN GLARGINE SOLOSTAR 100 UNITS/ML 3 ML PEN SC SCH ×2 (10:43→21:00)
[2020-12-09] MEDS: dexAMETHasone 10 MG in SYRINGE 0 ML IV SCH (17:26)
--- NOTE | 2020-12-09 18:40 | Hospitalist Progress Note ---
Date of Service December 09, 2020 Assessment & Plan (1) Acute respiratory failure with hypoxia: severe, 2nd to COVID-19 pneumonia. Much improved with prone positioning when tolerated; was weaned down to 8 L of the wall high flow nasal cannula, but is now at 14 L and stable but improving overall, feeling less dyspneic and more energy Repeat CT angiogram chest on 12/06 shows now more consolidated bilateral lower lobe opacities -Continue with flutter valve, incentive spirometry continue decadron high-dose protocol-now on 10 mg daily continue albuterol, ipratropium inhalers prn -Wean off oxygen as able to Continue to encourage out of bed and prone positioning -Will start Afrin nasal spray due to significant nasal congestion along with her nasal saline (2) Pneumonia due to COVID-19 virus: First symptoms on 11/15/2020. Outside of window for convalescent plasma or remdesivir. SEVERE disease with acute resp failure. Day #10 of IV dexamethasone - using high-dose protocol given severity of illness. Will switch to prednisone taper as she is still having significant hypoxia With hypoxia as above s/p 5-day course of rocephin/zithromax to cover superimposed bacterial pneumonia as initial procal at admission was elevated (procal now normal). I would leave in isolation given the severity of her illness along with severe cough and higher risk of continued spreading of droplets. (3) Chest pain: Had chest pain on 12/06 troponin - negative d-dimer - 4880 (higher than previous) sed rate >90 crp 2 EKG - sinus tach, but no ST changes or elevation to suggest pericarditis or ischemia In light of high risk of PE - even despite lovenox for DVT proph - along with high d-dimer- obtained CTA chest. Negative for PE. No mention of pericardial effusion. With consolidated bilateral opacities c/w PNA Pain could be the COVID itself causing pleural irritation, mucous plugging, bronchospasm, reflux/esophageal irritation from high-dose steroids, anxiety, etc. doubt cardiac - no evidence of such. doubt musculoskeletal - no reproducibility on exam. Now resolved except for heaviness in chest with deep breaths and cough -continue bronchodilators prn -continue buspar 5mg TID prn anxiety -Continue on protonix 40mg daily in light of high-dose steroids and high risk of stress gastritis (4) Diabetes mellitus type 2, uncontrolled: new diagnosis this admission. a1c 6.8%. cont lantus cont novolog will need DM education, etc. suspect we can likely use metformin BID at discharge in lieu of insulin. (or metformin + lantus) (5) Anxiety: mod-severe. Did require Precedex drip while on high flow nasal cannula in the ICU started buspar 5mg tid prn. consider SSRI as well but pt says she does not want to take anything for it. long-standing issue (years). Seems to be improving today (6) Elevated AST (SGOT): 2nd COVID-19 infection -- now resolved. ALT wnl. (7) Tachycardia: SIRS vs anxiety vs pain vs combo of factors. Her heart rate is in the 50s while she sleeps CBC wnl. TSH low but FT4 normal with 5 beat run of NSVT on tele not symptomatic on one occasion and not concerning at this time follow on tele (8) Thrombocytosis: Platelets peaked at 705 and now improved on 496 This is a reactive thrombocytosis due to inflammation Follow CBC She is on Lovenox twice daily (9) DVT prophylaxis: Lovenox with 40 mg SQ twice daily -- higher dose due to increase risk of VTE w/ COVID. PT, OT susannah appreciated Dispo-continued stay on PCU, on COVID precautions but can take off precautions tomorrow if cough continues to improve Admission and Anticipated Discharge Date Admission Date: November 30, 2020 Subjective Patient reports overall today she is starting to feel much better. She worked with physical and occupational therapy and was out of bed to chair for most of the day. She is eating and drinking, still not really moving her bowels. Her biggest complaint right now is severe nasal congestion making it difficult to breathe through the high flow nasal cannula. She has been using the saline spray which helps a little bit. She is weaned down to 14 L high flow nasal cannula. She has been proning and using her incentive spirometer and flutter valve. Still feeling quite fatigued Telemetry with normal sinus rhythm, PACs with rates in the 50s while sleeping and in the 90s to 140s during the day Review of Systems Review of Systems: All systems reviewed & are unremarkable except as noted in HPI & below Physical Exam Constitutional: WD/WN, vitals as above Eyes: + anicteric sclerae Neck: trachea midline, no thyromegaly Respiratory: normal respiratory effort Auscultation: + crackles (At lower lung durand bilaterally); no rhonchi and no wheezes Cardiovascular: RRR, no murmur, no edema Chest (Breasts): Chest: normal inspection of chest Gastrointestinal (Abdomen): normal bowel sounds, soft, nontender, no hepatosplenomegaly Musculoskeletal: Extremities: extremities normal to inspection; no cyanosis and no clubbing Skin: no rashes, warm and dry Neurologic: moves all extremities and awake; no focal motor deficits Psychiatric: Orientation: alert, oriented x 3 and cooperative Speech: normal rate/rhythm/volume of speech Affect: + anxious affect Lymphatic: no lymphedema Results & Data Results & Data ([facility]) Vital Signs (Past 12 Hours) Vital Signs Temp Pulse Pulse Resp BP BP Pulse Ox 12/09/20 15:40 36.7 C 90 18 105/63 99 12/09/20 15:03 108 H 12/09/20 11:17 36.7 C 104 H 19 115/76 90 12/09/20 11:00 12/09/20 07:46 36.4 C L 70 20 106/59 L 98 12/09/20 07:33 68 Pulse Ox 12/09/20 15:40 12/09/20 15:03 12/09/20 11:17 12/09/20 11:00 91 12/09/20 07:46 12/09/20 07:33 Laboratory Results 12/09/20 12/09/20 12/09/20 Range/Units 16:33 12:09 08:05 WBC (4.8-10.8) K/uL RBC (4.2-5.4) M/uL Hgb (12.0-16.0) g/dL Hct (37-47) % MCV (80-100) fL MCH (25-34) pg MCHC (32-36) g/dL RDW Std Deviation (36.4-46.3) fL RDW Coeff of Oxana (11.5-14.5) % Plt Count (130-400) K/uL MPV (7.4-10.4) fL Immature Gran % (Auto) % Neut % (Auto) % Lymph % (Auto) % [place] % (Auto) % Eos % (Auto) % Baso % (Auto) % Neut # (Auto) (1.4-6.5) K/uL Lymph # (Auto) (1.2-3.4) K/uL [place] # (Auto) (0.11-0.59) K/uL Eos # (Auto) (0-0.5) K/uL Baso # (Auto) (0-0.2) K/uL Immature Gran # (Auto) (0.00-0.02) K/uL Sodium (136-145) mmol/L Potassium (3.5-5.1) mmol/L Chloride (98-107) mmol/L Carbon Dioxide (21-32) mmol/L Anion Gap (3-11) BUN (7-18) mg/dl Creatinine (0.6-1.2) mg/dl Est Cr Clr Drug Dosing ml/min Est GFR ( Amer) Est GFR (Non-Af Amer) BUN/Creatinine Ratio (10-20) Glucose (70-99) mg/dl POC Glucose 79 147 H 139 H (70-99) mg/dl Calcium (8.5-10.1) mg/dl Total Bilirubin (0.2-1) mg/dl AST (15-37) U/L ALT (12-78) U/L Alkaline Phosphatase (45-117) U/L Total Protein (6.4-8.2) gm/dl Albumin (3.4-5.0) gm/dl Globulin (2.5-4.0) gm/dl Albumin/Globulin Ratio (0.9-2) 12/09/20 12/09/20 12/08/20 Range/Units 06:03 06:03 20:39 WBC 8.26 (4.8-10.8) K/uL RBC 4.14 L (4.2-5.4) M/uL Hgb 12.6 (12.0-16.0) g/dL Hct 37.6 (37-47) % MCV 90.8 (80-100) fL MCH 30.4 (25-34) pg MCHC 33.5 (32-36) g/dL RDW Std Deviation 43.0 (36.4-46.3) fL RDW Coeff of Oxana 13.0 (11.5-14.5) % Plt Count 496 H (130-400) K/uL MPV 10.0 (7.4-10.4) fL Immature Gran % (Auto) 0.5 % Neut % (Auto) 78.2 % Lymph % (Auto) 15.3 % [place] % (Auto) 5.9 % Eos % (Auto) 0.0 % Baso % (Auto) 0.1 % Neut # (Auto) 6.46 (1.4-6.5) K/uL Lymph # (Auto) 1.26 (1.2-3.4) K/uL [place] # (Auto) 0.49 (0.11-0.59) K/uL Eos # (Auto) 0.00 (0-0.5) K/uL Baso # (Auto) 0.01 (0-0.2) K/uL Immature Gran # (Auto) 0.04 H (0.00-0.02) K/uL Sodium 135 L (136-145) mmol/L Potassium 4.8 (3.5-5.1) mmol/L Chloride 101 (98-107) mmol/L Carbon Dioxide 31 (21-32) mmol/L Anion Gap 3.0 (3-11) BUN 18 (7-18) mg/dl Creatinine 0.65 (0.6-1.2) mg/dl Est Cr Clr Drug Dosing 81.7 ml/min Est GFR ( Amer) 115.0 Est GFR (Non-Af Amer) 99.2 BUN/Creatinine Ratio 27.4 H (10-20) Glucose 161 H (70-99) mg/dl POC Glucose 191 H (70-99) mg/dl Calcium 8.6 (8.5-10.1) mg/dl Total Bilirubin 0.5 (0.2-1) mg/dl AST 15 (15-37) U/L ALT 20 (12-78) U/L Alkaline Phosphatase 65 (45-117) U/L Total Protein 7.3 (6.4-8.2) gm/dl Albumin 2.5 L (3.4-5.0) gm/dl Globulin 4.8 H (2.5-4.0) gm/dl Albumin/Globulin Ratio 0.5 L (0.9-2) PG Care Time/CCT Total # of Minutes Spent Total Time Spent with Patient: Total time spent is greater than 50% in coordination of care (as documented) at patient's floor/unit and/or counseling patient: Coding Level of Care Code 57495 Subseq Hosp Care Lvl 3 Diagnoses Acute respiratory failure with hypoxia J96.01 Pneumonia due to COVID-19 virus U07.1; J12.82 Chest pain R07.9 Diabetes mellitus type 2, uncontrolled E11.65 Anxiety F41.9 Elevated AST (SGOT) R74.01 Tachycardia R00.0 Thrombocytosis D47.3 DVT prophylaxis Z29.9
[2020-12-10] MEDS: INSULIN GLARGINE SOLOSTAR 100 UNITS/ML 3 ML PEN SC SCH ×2 (09:03→20:51)
[2020-12-10] MEDS: OXYMETAZOLINE 0.05% 30 ML BTL PRN ×2 (09:11→20:51)
[2020-12-10] MEDS: ENOXAPARIN INJ 40 MG/0.4 ML SYR SQ SCH ×2 (09:12→20:51)
[2020-12-10] MEDS: predniSONE 20 MG TAB PO SCH (09:13)
[2020-12-10] MEDS: guaiFENesin 600 MG TABCR PO SCH ×2 (09:13→20:51)
[2020-12-10] MEDS: PANTOprazole 40 MG TAB PO SCH (09:13)
[2020-12-10] MEDS: INSULIN ASPART 100 UNITS/ML 3 ML PEN SC SCH ×4 (10:57→20:49)
--- NOTE | 2020-12-10 15:42 | Hospitalist Progress Note ---
Date of Service December 10, 2020 Assessment & Plan (1) Acute respiratory failure with hypoxia: severe, 2nd to COVID-19 pneumonia. Much improved with prone positioning when tolerated; was weaned down to 8 L of the wall high flow nasal cannula, but is now at 15 L and stable but improving overall, feeling less dyspneic and more energy Repeat CT angiogram chest on 12/06 shows now more consolidated bilateral lower lobe opacities -Continue with flutter valve, incentive spirometry, proning Completed decadron high-dose protocol-now on prednisone taper continue albuterol, ipratropium inhalers prn -Wean off oxygen as able to -Continue 3-day course of Afrin nasal spray due to significant nasal congestion along with her nasal saline (2) Pneumonia due to COVID-19 virus: First symptoms on 11/15/2020. Outside of window for convalescent plasma or remdesivir. SEVERE disease with acute resp failure. Completed #10 days of IV dexamethasone - using high-dose protocol given severity of illness. Now on prednisone taper as she is still having significant hypoxia at 40 mg and will decrease by 10 mg every 2 days With hypoxia as above s/p 5-day course of rocephin/zithromax to cover superimposed bacterial pneumonia as initial procal at admission was elevated (procal now normal). Improving, cough is decreasing, can come off precautions (3) Chest pain: Had chest pain on 12/06 troponin - negative d-dimer - 4880 (higher than previous) sed rate >90 crp 2 EKG - sinus tach, but no ST changes or elevation to suggest pericarditis or ischemia In light of high risk of PE - even despite lovenox for DVT proph - along with high d-dimer- obtained CTA chest. Negative for PE. No mention of pericardial effusion. With consolidated bilateral opacities c/w PNA Pain could be the COVID itself causing pleural irritation, mucous plugging, bronchospasm, reflux/esophageal irritation from high-dose steroids, anxiety, etc. doubt cardiac - no evidence of such. doubt musculoskeletal - no reproducibility on exam. Now resolved except for heaviness in chest with deep breaths and cough -continue bronchodilators prn -continue buspar 5mg TID prn anxiety -Continue on protonix 40mg daily in light of high-dose steroids and high risk of stress gastritis (4) Diabetes mellitus type 2, uncontrolled: new diagnosis this admission. a1c 6.8%. cont lantus cont novolog will need DM education, etc. suspect we can likely use metformin BID at discharge in lieu of insulin. (or metformin + lantus) (5) Anxiety: mod-severe. Did require Precedex drip while on high flow nasal cannula in the ICU started buspar 5mg tid prn. consider SSRI as well but pt says she does not want to take anything for it. long-standing issue (years). Seems to be improving now (6) Elevated AST (SGOT): 2nd COVID-19 infection -- now resolved. ALT wnl. (7) Tachycardia: SIRS vs anxiety vs pain vs combo of factors. Her heart rate is in the 50s while she sleeps CBC wnl. TSH low but FT4 normal with 5 beat run of NSVT on tele not symptomatic on one occasion and not concerning at this time follow on tele (8) Thrombocytosis: Platelets peaked at 705 and now improved on 496 This is a reactive thrombocytosis due to inflammation Follow CBC occasionally She is on Lovenox twice daily (9) DVT prophylaxis: Lovenox with 40 mg SQ twice daily -- higher dose due to increase risk of VTE w/ COVID. PT, OT susannah appreciated Dispo-continued stay on PCU, can remove COVID precautions Admission and Anticipated Discharge Date Admission Date: November 30, 2020 Subjective Patient reports feeling much improved with her nasal congestion after using Afrin this morning but still remains on 15 L nasal cannula. Denies any other concerns. Is eating and drinking, getting out of bed to chair. Telemetry with sinus bradycardia in the 50s with some sinus tachycardia at 130s with minimal exertion. Review of Systems Review of Systems: All systems reviewed & are unremarkable except as noted in HPI & below Physical Exam Constitutional: WD/WN, vitals as above Eyes: + anicteric sclerae Neck: trachea midline, no thyromegaly Respiratory: normal respiratory effort Auscultation: + crackles (At lower lung durand bilaterally); no rhonchi and no wheezes Cardiovascular: RRR, no murmur, no edema Chest (Breasts): Chest: normal inspection of chest Gastrointestinal (Abdomen): normal bowel sounds, soft, nontender, no hepatosplenomegaly Musculoskeletal: Extremities: extremities normal to inspection; no cyanosis and no clubbing Skin: no rashes, warm and dry Neurologic: moves all extremities and awake; no focal motor deficits Psychiatric: Orientation: alert, oriented x 3 and cooperative Speech: normal rate/rhythm/volume of speech Lymphatic: no lymphedema Results & Data Results & Data ([facility]) Vital Signs (Past 12 Hours) Vital Signs Temp Pulse Pulse Resp BP BP Pulse Ox 12/10/20 15:40 36.6 C 86 18 104/72 98 12/10/20 15:34 94 H 12/10/20 11:49 36.8 C 80 18 105/68 93 12/10/20 11:00 12/10/20 08:00 36.6 C 59 L 80 18 107/66 89 L 12/10/20 04:15 36.5 C 71 18 109/53 L 91 Pulse Ox 12/10/20 15:40 12/10/20 15:34 12/10/20 11:49 12/10/20 11:00 92 12/10/20 08:00 12/10/20 04:15 Laboratory Results 12/10/20 12/10/20 12/10/20 Range/Units 16:48 11:47 07:59 POC Glucose 146 H 172 H 136 H (70-99) mg/dl 12/09/20 Range/Units 20:56 POC Glucose 261 H (70-99) mg/dl PG Care Time/CCT Total # of Minutes Spent Total Time Spent with Patient: Total time spent is greater than 50% in coordination of care (as documented) at patient's floor/unit and/or counseling patient: Coding Level of Care Code 34199 Subseq Hosp Care Lvl 2 Diagnoses Acute respiratory failure with hypoxia J96.01 Pneumonia due to COVID-19 virus U07.1; J12.82 Chest pain R07.9 Diabetes mellitus type 2, uncontrolled E11.65 Anxiety F41.9 Elevated AST (SGOT) R74.01 Tachycardia R00.0 Thrombocytosis D47.3 DVT prophylaxis Z29.9
[2020-12-11 07:32] LABS: Eosinophils # (auto) 0.15 K/uL (0-0.5); Eosinophils % (auto) 1.6 %; Hemoglobin 12.6 g/dL (12.0-16.0); Immature Granulocytes # (auto) 0.04 K/uL (0.00-0.02); Immature Granulocytes % (auto) 0.4 %; Lymphocytes # (auto) 2.64 K/uL (1.2-3.4); Lymphocytes % (auto) 28.9 %; Mean Corpuscular Hemoglobin 30.2 pg (25-34); Mean Corpuscular Hgb Conc 33.2 g/dL (32-36); Mean Corpuscular Volume 91.1 fL (80-100); Mean Platelet Volume 10.6 fL (7.4-10.4); Monocytes # (auto) 1.08 K/uL (0.11-0.59); Monocytes % (auto) 11.8 %; Neutrophils # (auto) 5.21 K/uL (1.4-6.5); Neutrophils % (auto) 57.3 %; Platelet Count 443 K/uL (130-400); RDW Coefficient of Variation 13.5 % (11.5-14.5); RDW Standard Deviation 44.5 fL (36.4-46.3); Red Blood Count 4.17 M/uL (4.2-5.4); White Blood Count 9.12 K/uL (4.8-10.8)
[2020-12-11 07:58] LABS: Albumin Level 2.5 gm/dl (3.4-5.0); C Reactive Protein 0.88 mg/dl (0-0.29); Calcium 9.2 mg/dl (8.5-10.1); Creatinine Clr Calc Pharmacy 78.7 ml/min; Est GFR (African American) 114.2; Est GFR (Non-African American) 98.6; Magnesium 2.6 mg/dl (1.8-2.4)
[2020-12-11 08:00] LABS: Albumin Globulin Ratio 0.6 (0.9-2); Bilirubin,Total 0.6 mg/dl (0.2-1); Globulin 4.4 gm/dl (2.5-4.0); Total Protein 6.9 gm/dl (6.4-8.2)
[2020-12-11] MEDS: OXYMETAZOLINE 0.05% 30 ML BTL PRN ×2 (09:32→21:22)
[2020-12-11] MEDS: PANTOprazole 40 MG TAB PO SCH (09:33)
[2020-12-11] MEDS: ENOXAPARIN INJ 40 MG/0.4 ML SYR SQ SCH ×2 (09:33→20:40)
[2020-12-11] MEDS: predniSONE 20 MG TAB PO SCH (09:33)
[2020-12-11] MEDS: INSULIN GLARGINE SOLOSTAR 100 UNITS/ML 3 ML PEN SC SCH ×2 (09:35→21:20)
[2020-12-11] MEDS: INSULIN ASPART 100 UNITS/ML 3 ML PEN SC SCH ×4 (09:37→21:40)
--- NOTE | 2020-12-11 10:36 | Hospitalist Progress Note ---
Date of Service December 11, 2020 Assessment & Plan (1) Acute respiratory failure with hypoxia: severe, 2nd to COVID-19 pneumonia. Much improved with prone positioning when tolerated; was weaned down to 8 L of the wall high flow nasal cannula, but is now at 15 L for several days and having issues with severe nasal congestion, feeling less dyspneic Repeat CT angiogram chest on 12/06 shows now more consolidated bilateral lower lobe opacities -Continue with flutter valve, incentive spirometry, proning Completed decadron high-dose protocol-now on prednisone taper continue albuterol, ipratropium inhalers prn -Wean off oxygen as able to--> try switching to OxyMask today to get O2 via mouth rather than NC -Continue 3-day course of Afrin nasal spray due to significant nasal congestion along with her nasal saline -will add on SUdafed prn low doses prn given tachycardia (2) Pneumonia due to COVID-19 virus: First symptoms on 11/15/2020. Outside of window for convalescent plasma or remdesivir. SEVERE disease with acute resp failure. Completed #10 days of IV dexamethasone - using high-dose protocol given severity of illness. Now on prednisone taper as she is still having significant hypoxia at 40 mg and will decrease by 10 mg every 2 days-decrease to 30mg for tomorrow With hypoxia as above s/p 5-day course of rocephin/zithromax to cover superimposed bacterial pneumonia as initial procal at admission was elevated (procal now normal). Improving, cough is decreasing, can come off precautions (3) Chest pain: Had chest pain on 12/06 troponin - negative d-dimer - 4880 (higher than previous) sed rate >90 crp 2 and now down to 0.88 EKG - sinus tach, but no ST changes or elevation to suggest pericarditis or ischemia In light of high risk of PE - even despite lovenox for DVT proph - along with hi gh d-dimer- obtained CTA chest. Negative for PE. No mention of pericardial effusion. With consolidated bilateral opacities c/w PNA Pain could be the COVID itself causing pleural irritation, mucous plugging, bronchospasm, reflux/esophageal irritation from high-dose steroids, anxiety, etc. doubt cardiac - no evidence of such. doubt musculoskeletal - no reproducibility on exam. Now resolved -continue bronchodilators prn -continue buspar 5mg TID prn anxiety -Continue on protonix 40mg daily in light of high-dose steroids and high risk of stress gastritis (4) Diabetes mellitus type 2, uncontrolled: new diagnosis this admission. a1c 6.8%. cont lantus cont novolog will need DM education, etc. suspect we can likely use metformin BID at discharge in lieu of insulin. (or metformin + lantus) (5) Anxiety: mod-severe. Did require Precedex drip while on high flow nasal cannula in the ICU started buspar 5mg tid prn. consider SSRI as well but pt says she does not want to take anything for it. long-standing issue (years). Seems to be improving now (6) Elevated AST (SGOT): 2nd COVID-19 infection -- now resolved. ALT wnl. (7) Tachycardia: SIRS vs anxiety vs pain vs combo of factors. Her heart rate is in the 50s while she sleeps CBC wnl. TSH low but FT4 normal with 5 beat run of NSVT on tele not symptomatic on one occasion and not concerning at this time follow on tele--> improving, rates are now lower (8) Thrombocytosis: Platelets peaked at 705 and now continue to improve back to 400s This is a reactive thrombocytosis due to inflammation Follow CBC occasionally She is on Lovenox twice daily (9) DVT prophylaxis: Lovenox with 40 mg SQ twice daily -- higher dose due to increase risk of VTE w/ COVID. PT, OT susannah appreciated Dispo-continued stay on PCU, now off COVID precautions Admission and Anticipated Discharge Date Admission Date: November 30, 2020 Subjective Biggest complaint is significant nasal congestion not helped today by Afrin or nasal saline. Will try to switch to OxyMask. Otherwise fatigued and slept all AM but plans to prone nad get OOB to chair today. Tele with NSR-ST improved rates to 100s today rather than 130s Review of Systems Review of Systems: All systems reviewed & are unremarkable except as noted in HPI & below Physical Exam Constitutional: WD/WN, vitals as above Eyes: + anicteric sclerae Neck: trachea midline, no thyromegaly Respiratory: normal respiratory effort Auscultation: + crackles (At lower lung durand bilaterally); no rhonchi and no wheezes Cardiovascular: RRR, no murmur, no edema Chest (Breasts): Chest: normal inspection of chest Gastrointestinal (Abdomen): normal bowel sounds, soft, nontender, no hepatosplenomegaly Musculoskeletal: Extremities: extremities normal to inspection; no cyanosis and no clubbing Skin: no rashes, warm and dry Neurologic: moves all extremities and awake; no focal motor deficits Psychiatric: Orientation: alert, oriented x 3 and cooperative Speech: normal rate/rhythm/volume of speech Affect: + anxious affect Lymphatic: no lymphedema Results & Data Results & Data ([facility]) Vital Signs (Past 12 Hours) Vital Signs Temp Pulse Pulse Resp BP Pulse Ox 12/11/20 07:08 36.1 C L 78 20 118/66 90 12/11/20 03:47 36.5 C 75 19 115/71 99 12/10/20 23:16 36.6 C 65 18 120/74 96 12/10/20 23:02 66 Laboratory Results 12/11/20 12/11/20 12/11/20 Range/Units 07:45 06:39 06:39 WBC 9.12 (4.8-10.8) K/uL RBC 4.17 L (4.2-5.4) M/uL Hgb 12.6 (12.0-16.0) g/dL Hct 38.0 (37-47) % MCV 91.1 (80-100) fL MCH 30.2 (25-34) pg MCHC 33.2 (32-36) g/dL RDW Std Deviation 44.5 (36.4-46.3) fL RDW Coeff of Oxana 13.5 (11.5-14.5) % Plt Count 443 H (130-400) K/uL MPV 10.6 H (7.4-10.4) fL Immature Gran % (Auto) 0.4 % Neut % (Auto) 57.3 % Lymph % (Auto) 28.9 % Metcalfe % (Auto) 11.8 % Eos % (Auto) 1.6 % Baso % (Auto) 0.0 % Neut # (Auto) 5.21 (1.4-6.5) K/uL Lymph # (Auto) 2.64 (1.2-3.4) K/uL Metcalfe # (Auto) 1.08 H (0.11-0.59) K/uL Eos # (Auto) 0.15 (0-0.5) K/uL Baso # (Auto) 0.00 (0-0.2) K/uL Immature Gran # (Auto) 0.04 H (0.00-0.02) K/uL Sodium 134 L (136-145) mmol/L Potassium 4.0 (3.5-5.1) mmol/L Chloride 100 (98-107) mmol/L Carbon Dioxide 31 (21-32) mmol/L Anion Gap 3.0 (3-11) BUN 21 H (7-18) mg/dl Creatinine 0.65 (0.6-1.2) mg/dl Est Cr Clr Drug Dosing 78.7 ml/min Est GFR ( Amer) 114.2 Est GFR (Non-Af Amer) 98.6 BUN/Creatinine Ratio 32.0 H (10-20) Glucose 85 (70-99) mg/dl POC Glucose 84 (70-99) mg/dl Calcium 9.2 (8.5-10.1) mg/dl Magnesium 2.6 H (1.8-2.4) mg/dl Total Bilirubin 0.6 (0.2-1) mg/dl AST 16 (15-37) U/L ALT 19 (12-78) U/L Alkaline Phosphatase 59 (45-117) U/L C-Reactive Protein 0.88 H (0-0.29) mg/dl Total Protein 6.9 (6.4-8.2) gm/dl Albumin 2.5 L (3.4-5.0) gm/dl Globulin 4.4 H (2.5-4.0) gm/dl Albumin/Globulin Ratio 0.6 L (0.9-2) 12/10/20 12/10/20 12/10/20 Range/Units 20:39 16:48 11:47 WBC (4.8-10.8) K/uL RBC (4.2-5.4) M/uL Hgb (12.0-16.0) g/dL Hct (37-47) % MCV (80-100) fL MCH (25-34) pg MCHC (32-36) g/dL RDW Std Deviation (36.4-46.3) fL RDW Coeff of Oxana (11.5-14.5) % Plt Count (130-400) K/uL MPV (7.4-10.4) fL Immature Gran % (Auto) % Neut % (Auto) % Lymph % (Auto) % Metcalfe % (Auto) % Eos % (Auto) % Baso % (Auto) % Neut # (Auto) (1.4-6.5) K/uL Lymph # (Auto) (1.2-3.4) K/uL Metcalfe # (Auto) (0.11-0.59) K/uL Eos # (Auto) (0-0.5) K/uL Baso # (Auto) (0-0.2) K/uL Immature Gran # (Auto) (0.00-0.02) K/uL Sodium (136-145) mmol/L Potassium (3.5-5.1) mmol/L Chloride (98-107) mmol/L Carbon Dioxide (21-32) mmol/L Anion Gap (3-11) BUN (7-18) mg/dl Creatinine (0.6-1.2) mg/dl Est Cr Clr Drug Dosing ml/min Est GFR ( Amer) Est GFR (Non-Af Amer) BUN/Creatinine Ratio (10-20) Glucose (70-99) mg/dl POC Glucose 164 H 146 H 172 H (70-99) mg/dl Calcium (8.5-10.1) mg/dl Magnesium (1.8-2.4) mg/dl Total Bilirubin (0.2-1) mg/dl AST (15-37) U/L ALT (12-78) U/L Alkaline Phosphatase (45-117) U/L C-Reactive Protein (0-0.29) mg/dl Total Protein (6.4-8.2) gm/dl Albumin (3.4-5.0) gm/dl Globulin (2.5-4.0) gm/dl Albumin/Globulin Ratio (0.9-2) PG Care Time/CCT Total # of Minutes Spent Total Time Spent with Patient: Total time spent is greater than 50% in coordination of care (as documented) at patient's floor/unit and/or counseling patient: Coding Level of Care Code 85021 Subseq Hosp Care Lvl 2 Diagnoses Acute respiratory failure with hypoxia J96.01 Pneumonia due to COVID-19 virus U07.1; J12.82 Chest pain R07.9 Diabetes mellitus type 2, uncontrolled E11.65 Anxiety F41.9 Elevated AST (SGOT) R74.01 Tachycardia R00.0 Thrombocytosis D47.3 DVT prophylaxis Z29.9
[2020-12-11] MEDS ORDERED: PSEUDOEPHEDRINE HCL 30 MG TAB PO PRN (10:37)
[2020-12-11] MEDS: guaiFENesin 600 MG TABCR PO SCH ×2 (12:23→20:40)
[2020-12-12] MEDS: PANTOprazole 40 MG TAB PO SCH (08:02)
[2020-12-12] MEDS: guaiFENesin 600 MG TABCR PO SCH ×2 (08:02→21:03)
[2020-12-12] MEDS: predniSONE 10 MG TABLET PO SCH (08:02)
[2020-12-12] MEDS: busPIRone 5 MG TAB PO PRN (08:02)
[2020-12-12] MEDS: ENOXAPARIN INJ 40 MG/0.4 ML SYR SQ SCH ×2 (08:03→21:04)
[2020-12-12] MEDS: OXYMETAZOLINE 0.05% 30 ML BTL PRN ×2 (08:07→21:05)
[2020-12-12] MEDS: INSULIN ASPART 100 UNITS/ML 3 ML PEN SC SCH ×4 (08:46→21:04)
[2020-12-12] MEDS: INSULIN GLARGINE SOLOSTAR 100 UNITS/ML 3 ML PEN SC SCH ×2 (08:47→21:25)
--- NOTE | 2020-12-12 11:47 | Hospitalist Progress Note ---
Date of Service December 12, 2020 Assessment & Plan (1) Acute respiratory failure with hypoxia: severe, 2nd to COVID-19 pneumonia. Much improved with prone positioning when tolerated; was weaned down to 8 L of the wall high flow nasal cannula, then up to 15 L for several days and having issues with severe nasal congestion, but now congestion improved, wean down to 11L today Repeat CT angiogram chest on 12/06 shows now more consolidated bilateral lower lobe opacities -Continue with flutter valve, incentive spirometry, proning Completed decadron high-dose protocol-now on prednisone taper continue albuterol, ipratropium inhalers prn -Wean off oxygen as able to -Continue 3-day course of Afrin nasal spray due to significant nasal congestion along with her nasal saline (2) Pneumonia due to COVID-19 virus: First symptoms on 11/15/2020. Outside of window for convalescent plasma or remdesivir. SEVERE disease with acute resp failure. Completed #10 days of IV dexamethasone - using high-dose protocol given severity of illness. Now on prednisone taper as she is still having significant hypoxia at 40 mg and will decrease by 10 mg every 2 days-remain at 30mg for tomorrow With hypoxia as above s/p 5-day course of rocephin/zithromax to cover superimposed bacterial pneumonia as initial procal at admission was elevated (procal now normal). Improving, cough is decreasing, can come off precautions (3) Chest pain: Had chest pain on 12/06 troponin - negative d-dimer - 4880 (higher than previous) sed rate >90 crp 2 and now down to 0.88 EKG - sinus tach, but no ST changes or elevation to suggest pericarditis or ischemia In light of high risk of PE - even despite lovenox for DVT proph - along with high d-dimer- obtained CTA chest. Negative for PE. No mention of pericardial effusion. With consolidated bilateral opacities c/w PNA Pain could be the COVID itself causing pleural irritation, mucous plugging, bronchospasm, reflux/esophageal irritation from high-dose steroids, anxiety, etc. doubt cardiac - no evidence of such. doubt musculoskeletal - no reproducibility on exam. Now resolved -continue bronchodilators prn -continue buspar 5mg TID prn anxiety -Continue on protonix 40mg daily in light of high-dose steroids and high risk of stress gastritis (4) Diabetes mellitus type 2, uncontrolled: new diagnosis this admission. a1c 6.8%. cont lantus cont novolog will need DM education, etc. suspect we can likely use metformin BID at discharge in lieu of insulin. (or metformin + lantus) (5) Anxiety: mod-severe. Did require Precedex drip while on high flow nasal cannula in the ICU started buspar 5mg tid prn. consider SSRI as well but pt says she does not want to take anything for it. long-standing issue (years). Seems to be improving now (6) Elevated AST (SGOT): 2nd COVID-19 infection -- now resolved. ALT wnl. (7) Tachycardia: SIRS vs anxiety vs pain vs combo of factors. Her heart rate is in the 50s while she sleeps CBC wnl. TSH low but FT4 normal with 5 beat run of NSVT on tele not symptomatic on one occasion and not concerning at this time follow on tele--> improving, rates are now lower (8) Thrombocytosis: Platelets peaked at 705 and now continue to improve back to 400s This is a reactive thrombocytosis due to inflammation Follow CBC occasionally She is on Lovenox twice daily (9) DVT prophylaxis: Lovenox with 40 mg SQ twice daily -- higher dose due to increase risk of VTE w/ COVID. PT, OT susannah appreciated Dispo-continued stay on PCU, now off COVID precautions Admission and Anticipated Discharge Date Admission Date: November 30, 2020 Subjective Pt feels improved today, is lying prone and on her side when sleeping and POx 99% on 13L when I saw her-turned her down to 11L. She feels her nose is much clearer after digging out large crusted blood clots last night and this AM. Breathing through her nose now without difficulty. Tele with NSR-ST rates 50s-140s Review of Systems Review of Systems: All systems reviewed & are unremarkable except as noted in HPI & below Physical Exam Constitutional: WD/WN, vitals as above Eyes: + anicteric sclerae Neck: trachea midline, no thyromegaly Respiratory: normal respiratory effort Auscultation: + crackles (At lower lung durand bilaterally); no rhonchi and no wheezes Cardiovascular: RRR, no murmur, no edema Chest (Breasts): Chest: normal inspection of chest Gastrointestinal (Abdomen): normal bowel sounds, soft, nontender, no hepatosplenomegaly Musculoskeletal: Extremities: extremities normal to inspection; no cyanosis and no clubbing Skin: no rashes, warm and dry Neurologic: moves all extremities and awake; no focal motor deficits Psychiatric: Orientation: alert, oriented x 3 and cooperative Speech: normal rate/rhythm/volume of speech Affect: + anxious affect Lymphatic: no lymphedema Results & Data Results & Data ([facility]) Vital Signs (Past 12 Hours) Vital Signs Temp Pulse Pulse Resp BP Pulse Ox Pulse Ox 12/12/20 09:19 92 12/12/20 08:00 60 12/12/20 07:25 36.4 C L 79 20 114/68 91 12/12/20 05:39 36.6 C 69 18 131/84 99 12/11/20 23:45 77 Laboratory Results 12/12/20 12/12/20 12/11/20 Range/Units 11:31 07:21 21:04 POC Glucose 116 H 75 134 H (70-99) mg/dl 12/11/20 Range/Units 16:38 POC Glucose 141 H (70-99) mg/dl PG Care Time/CCT Total # of Minutes Spent Total Time Spent with Patient: Total time spent is greater than 50% in coordination of care (as documented) at patient's floor/unit and/or counseling patient: Coding Level of Care Code 33851 Subseq Hosp Care Lvl 2 Diagnoses Acute respiratory failure with hypoxia J96.01 Pneumonia due to COVID-19 virus U07.1; J12.82 Chest pain R07.9 Diabetes mellitus type 2, uncontrolled E11.65 Anxiety F41.9 Elevated AST (SGOT) R74.01 Tachycardia R00.0 Thrombocytosis D47.3 DVT prophylaxis Z29.9
[2020-12-13] MEDS: guaiFENesin 600 MG TABCR PO SCH ×2 (09:15→21:06)
[2020-12-13] MEDS: ENOXAPARIN INJ 40 MG/0.4 ML SYR SQ SCH ×2 (09:16→21:06)
[2020-12-13] MEDS: PANTOprazole 40 MG TAB PO SCH (09:17)
[2020-12-13] MEDS: predniSONE 10 MG TABLET PO SCH (09:17)
[2020-12-13] MEDS: INSULIN ASPART 100 UNITS/ML 3 ML PEN SC SCH ×4 (09:55→21:25)
[2020-12-13] MEDS: INSULIN GLARGINE SOLOSTAR 100 UNITS/ML 3 ML PEN SC SCH ×2 (09:55→21:25)
--- NOTE | 2020-12-13 17:12 | Hospitalist Progress Note ---
Date of Service December 13, 2020 Assessment & Plan (1) Acute respiratory failure with hypoxia: severe, 2nd to COVID-19 pneumonia. Much improved with prone positioning when tolerated; was weaned down to 8 L of the wall high flow nasal cannula, then up to 15 L for several days and having issues with severe nasal congestion, but now congestion improved, weaned down to 9L now Repeat CT angiogram chest on 12/06 shows now more consolidated bilateral lower lobe opacities -Continue with flutter valve, incentive spirometry, proning--> also strongly encouraged more ambulation around the room-she is always lying in bed when I ome to see her Completed decadron high-dose protocol-now on prednisone taper continue albuterol, ipratropium inhalers prn -Wean off oxygen as able to -Continue 3-day course of Afrin nasal spray due to significant nasal congestion along with her nasal saline (2) Pneumonia due to COVID-19 virus: First symptoms on 11/15/2020. Outside of window for convalescent plasma or remdesivir. SEVERE disease with acute resp failure. Completed #10 days of IV dexamethasone - using high-dose protocol given severity of illness. Now on prednisone taper as she is still having significant hypoxia at 40 mg and will decrease by 10 mg every 2 days-decrease to 20mg for tomorrow With hypoxia as above s/p 5-day course of rocephin/zithromax to cover superimposed bacterial pneumonia as initial procal at admission was elevated (procal now normal). now off COVID airborne precautions (3) Chest pain: Had chest pain on 12/06 troponin - negative d-dimer - 4880 (higher than previous) sed rate >90 crp 2 and now down to 0.88 EKG - sinus tach, but no ST changes or elevation to suggest pericarditis or ischemia In light of high risk of PE - even despite lovenox for DVT proph - along with high d-dimer- obtained CTA chest. Negative for PE. No mention of pericardial effusion. With consolidated bilateral opacities c/w PNA Pain could be the COVID itself causing pleural irritation, mucous plugging, br onchospasm, reflux/esophageal irritation from high-dose steroids, anxiety, etc. doubt cardiac - no evidence of such. doubt musculoskeletal - no reproducibility on exam. Now resolved -continue bronchodilators prn -continue buspar 5mg TID prn anxiety -Continue on protonix 40mg daily in light of high-dose steroids and high risk of stress gastritis (4) Diabetes mellitus type 2, uncontrolled: new diagnosis this admission. a1c 6.8%. cont lantus cont novolog will need DM education, etc. suspect we can likely use metformin BID at discharge in lieu of insulin. (or metformin + lantus) (5) Anxiety: mod-severe. Did require Precedex drip while on high flow nasal cannula in the ICU started buspar 5mg tid prn. consider SSRI as well but pt says she does not want to take anything for it. long-standing issue (years). Seems to be improving now (6) Elevated AST (SGOT): 2nd COVID-19 infection -- now resolved. ALT wnl. (7) Tachycardia: SIRS vs anxiety vs pain vs combo of factors. Her heart rate is in the 50s while she sleeps CBC wnl. TSH low but FT4 normal with 5 beat run of NSVT on tele not symptomatic on one occasion and not concerning at this time follow on tele--> improving, rates are now lower (8) Thrombocytosis: Platelets peaked at 705 and now continue to improve back to 400s This is a reactive thrombocytosis due to inflammation Follow CBC occasionally She is on Lovenox twice daily (9) DVT prophylaxis: Lovenox with 40 mg SQ twice daily -- higher dose due to increase risk of VTE w/ COVID. PT, OT kostaals appreciated Dispo-continued stay on PCU, now off COVID precautions , slow improvement but may be ready for dc to home in the next 2-3 days if can get down to 3-4LNC Admission and Anticipated Discharge Date Admission Date: November 30, 2020 Subjective Feels well today. Has been OOB to chair, but admits she is not walking around much. Is weaned down to 9LNC when I saw her. Denies SOB. Is eating and drinking, moving her bowels.Feels more energy today Tele continues with sinus tach to the 140s at times Review of Systems Review of Systems: All systems reviewed & are unremarkable except as noted in HPI & below Physical Exam Constitutional: WD/WN, vitals as above Eyes: + anicteric sclerae Neck: trachea midline, no thyromegaly Respiratory: normal respiratory effort Auscultation: + crackles (At lower lung durand bilaterally); no rhonchi and no wheezes Cardiovascular: RRR, no murmur, no edema Chest (Breasts): Chest: normal inspection of chest Gastrointestinal (Abdomen): normal bowel sounds, soft, nontender, no hepatosplenomegaly Musculoskeletal: Extremities: extremities normal to inspection; no cyanosis and no clubbing Skin: no rashes, warm and dry Neurologic: moves all extremities and awake; no focal motor deficits Psychiatric: Orientation: alert, oriented x 3 and cooperative Speech: normal rate/rhythm/volume of speech Affect: + anxious affect Lymphatic: no lymphedema Results & Data Results & Data ([facility]) Vital Signs (Past 12 Hours) Vital Signs Temp Pulse Pulse Resp BP BP Pulse Ox 12/13/20 16:37 36.8 C 85 18 115/70 91 12/13/20 14:00 82 12/13/20 11:47 36.5 C 83 21 103/66 93 12/13/20 08:00 71 12/13/20 07:36 36.9 C 81 19 103/68 92 Laboratory Results 12/13/20 12/13/20 12/13/20 Range/Units 20:14 16:35 11:38 POC Glucose 179 H 170 H 120 H (70-99) mg/dl 12/13/20 Range/Units 07:32 POC Glucose 85 (70-99) mg/dl PG Care Time/CCT Total # of Minutes Spent Total Time Spent with Patient: Total time spent is greater than 50% in coordination of care (as documented) at patient's floor/unit and/or counseling patient: Coding Level of Care Code 52162 Subseq Hosp Care Lvl 2 Diagnoses Acute respiratory failure with hypoxia J96.01 Pneumonia due to COVID-19 virus U07.1; J12.82 Chest pain R07.9 Diabetes mellitus type 2, uncontrolled E11.65 Anxiety F41.9 Elevated AST (SGOT) R74.01 Tachycardia R00.0 Thrombocytosis D47.3 DVT prophylaxis Z29.9
[2020-12-14] MEDS ORDERED: SODIUM CHLORIDE 0.65% NA SOLN 45 ML (OCEAN) ONE (00:26)
[2020-12-14 07:05] LABS: Basophils # (auto) 0.01 K/uL (0-0.2); Basophils % (auto) 0.1 %; Eosinophils # (auto) 0.27 K/uL (0-0.5); Eosinophils % (auto) 2.7 %; Hematocrit (blood only) 36.2 % (37-47); Hemoglobin 11.8 g/dL (12.0-16.0); Immature Granulocytes # (auto) 0.04 K/uL (0.00-0.02); Immature Granulocytes % (auto) 0.4 %; Lymphocytes % (auto) 34.7 %; Mean Corpuscular Hemoglobin 30.2 pg (25-34); Mean Corpuscular Hgb Conc 32.6 g/dL (32-36); Mean Corpuscular Volume 92.6 fL (80-100); Mean Platelet Volume 10.4 fL (7.4-10.4); Monocytes # (auto) 0.94 K/uL (0.11-0.59); Monocytes % (auto) 9.3 %; Neutrophils # (auto) 5.33 K/uL (1.4-6.5); Neutrophils % (auto) 52.8 %; Platelet Count 353 K/uL (130-400); RDW Coefficient of Variation 13.6 % (11.5-14.5); RDW Standard Deviation 45.4 fL (36.4-46.3); Red Blood Count 3.91 M/uL (4.2-5.4); White Blood Count 10.09 K/uL (4.8-10.8)
[2020-12-14 07:32] LABS: BUN Creatinine Ratio 25.4 (10-20); Calcium 8.8 mg/dl (8.5-10.1); Creatinine Clr Calc Pharmacy 77.7 ml/min; Est GFR (African American) 113.7; Est GFR (Non-African American) 98.1; Potassium 3.5 mmol/L (3.5-5.1)
[2020-12-14] MEDS: guaiFENesin 600 MG TABCR PO SCH ×2 (08:39→21:23)
[2020-12-14] MEDS: ENOXAPARIN INJ 40 MG/0.4 ML SYR SQ SCH ×2 (08:40→21:23)
[2020-12-14] MEDS: PANTOprazole 40 MG TAB PO SCH (08:41)
[2020-12-14] MEDS: INSULIN ASPART 100 UNITS/ML 3 ML PEN SC SCH ×4 (09:29→21:23)
[2020-12-14] MEDS: INSULIN GLARGINE SOLOSTAR 100 UNITS/ML 3 ML PEN SC SCH ×2 (09:30→21:33)
[2020-12-14] MEDS: predniSONE 20 MG TAB PO SCH (10:20)
--- NOTE | 2020-12-14 12:11 | Hospitalist Progress Note ---
Date of Service December 14, 2020 Assessment & Plan (1) Acute respiratory failure with hypoxia: severe, 2nd to COVID-19 pneumonia. Much improved with prone positioning when tolerated; was weaned down to 6L of the wall high flow nasal cannula Repeat CT angiogram chest on 12/06 shows now more consolidated bilateral lower lobe opacities -Continue with flutter valve, incentive spirometry, proning--> also strongly encouraged more ambulation around the room Completed decadron high-dose protocol-now on prednisone taper continue albuterol, ipratropium inhalers prn -Wean off oxygen as able to -Continue 3-day course of Afrin nasal spray due to significant nasal congestion along with her nasal saline (2) Pneumonia due to COVID-19 virus: First symptoms on 11/15/2020. Outside of window for convalescent plasma or remdesivir. SEVERE disease with acute resp failure. Completed #10 days of IV dexamethasone - using high-dose protocol given severity of illness. Now on prednisone taper as she is still having significant hypoxia at 40 mg and will decrease by 10 mg every 2 days-decrease to 20mg today With hypoxia as above s/p 5-day course of rocephin/zithromax to cover superimposed bacterial pneumonia as initial procal at admission was elevated (procal now normal). now off COVID airborne precautions (3) Chest pain: Had chest pain on 12/06 troponin - negative d-dimer - 4880 (higher than previous) sed rate >90 crp 2 and now down to 0.88 EKG - sinus tach, but no ST changes or elevation to suggest pericarditis or ischemia In light of high risk of PE - even despite lovenox for DVT proph - along with hi gh d-dimer- obtained CTA chest. Negative for PE. No mention of pericardial effusion. With consolidated bilateral opacities c/w PNA Pain could be the COVID itself causing pleural irritation, mucous plugging, bronchospasm, reflux/esophageal irritation from high-dose steroids, anxiety, etc. doubt cardiac - no evidence of such. doubt musculoskeletal - no reproducibility on exam. Now resolved -continue bronchodilators prn -continue buspar 5mg TID prn anxiety -Continue on protonix 40mg daily in light of high-dose steroids and high risk of stress gastritis (4) Diabetes mellitus type 2, uncontrolled: new diagnosis this admission. a1c 6.8%. cont lantus cont novolog will need DM education, etc. suspect we can likely use metformin BID at discharge in lieu of insulin. (or metformin + lantus) (5) Anxiety: mod-severe. Did require Precedex drip while on high flow nasal cannula in the ICU started buspar 5mg tid prn. consider SSRI as well but pt says she does not want to take anything for it. long-standing issue (years). stable today (6) Elevated AST (SGOT): 2nd COVID-19 infection -- now resolved. ALT wnl. (7) Tachycardia: SIRS vs anxiety vs pain vs combo of factors. Her heart rate is in the 50s while she sleeps CBC wnl. TSH low but FT4 normal with 5 beat run of NSVT on tele not symptomatic on one occasion and not concerning at this time follow on tele--> improving, rates are now lower (8) Thrombocytosis: Platelets peaked at 705 and now continue to improve, down to 353k This is a reactive thrombocytosis due to inflammation Follow CBC occasionally She is on Lovenox twice daily (9) DVT prophylaxis: Lovenox with 40 mg SQ twice daily -- higher dose due to increase risk of VTE w/ COVID. PT, OT susannah appreciated Dispo-continued stay on PCU, now off COVID precautions , slow improvement but may be ready for dc to home in the next few days Admission and Anticipated Discharge Date Admission Date: November 30, 2020 Subjective patient continues to get better, down to 6-8L today, saturations are high when prone eating and drinking well her anxiety is well controlled, she is looking forward to getting home soon asked about her father, assured her that he is doing well, getting better reviewed chart, reviewed labs, CBC and BMP stable Review of Systems Review of Systems: All systems reviewed & are unremarkable except as noted in Subjective Constitutional: no fever, no chills, no sweats, no fatigue and no weakness Respiratory: + dyspnea on exertion; no cough and no dyspnea Cardiovascular: no chest pain and no edema Gastrointestinal: no abdominal pain, no nausea, no vomiting, no constipation and no diarrhea/loose stools Physical Exam Constitutional: WD/WN, vitals as above Neck: trachea midline, no thyromegaly Respiratory: normal respiratory effort, lungs clear to auscultation Cardiovascular: RRR, no murmur, no edema Gastrointestinal (Abdomen): normal bowel sounds, soft, nontender, no hepatosplenomegaly Musculoskeletal: no cyanosis or clubbing, extremities motor strength 5/5 Skin: no rashes, warm and dry Neurologic: patellar DTR's 2+ bilat, sensation intact and PERRL, EOMI, accommodation nl, no face palsy, no dysarthria Psychiatric: A+Ox3, euthymic affect Lymphatic: no cervical or axillary lymphadenopathy Results & Data Results & Data ([facility]) Vital Signs (Past 12 Hours) Vital Signs Temp Pulse Resp BP BP Pulse Ox 12/14/20 11:09 37.4 C 75 20 100/66 100 12/14/20 07:49 36.6 C 82 19 106/67 92 12/14/20 03:46 37.0 C 63 18 116/77 100 12/14/20 00:21 36.6 C 76 17 107/73 99 Laboratory Results Laboratory Results - last 24 hr 12/13/20 12/13/20 12/14/20 16:35 20:14 06:21 WBC 10.09 RBC 3.91 L Hgb 11.8 L Hct 36.2 L MCV 92.6 MCH 30.2 MCHC 32.6 RDW Std Deviation 45.4 RDW Coeff of [place] 13.6 Plt Count 353 MPV 10.4 Immature Gran % (Auto) 0.4 Neut % (Auto) 52.8 Lymph % (Auto) 34.7 [place] % (Auto) 9.3 Eos % (Auto) 2.7 Baso % (Auto) 0.1 Neut # (Auto) 5.33 Lymph # (Auto) 3.50 H [place] # (Auto) 0.94 H Eos # (Auto) 0.27 Baso # (Auto) 0.01 Immature Gran # (Auto) 0.04 H Sodium Potassium Chloride Carbon Dioxide Anion Gap BUN Creatinine Est Cr Clr Drug Dosing Est GFR ( Amer) Est GFR (Non-Af Amer) BUN/Creatinine Ratio Glucose POC Glucose 170 H 179 H Calcium 12/14/20 12/14/20 12/14/20 06:21 07:45 11:08 WBC RBC Hgb Hct MCV MCH MCHC RDW Std Deviation RDW Coeff of [place] Plt Count MPV Immature Gran % (Auto) Neut % (Auto) Lymph % (Auto) [place] % (Auto) Eos % (Auto) Baso % (Auto) Neut # (Auto) Lymph # (Auto) [place] # (Auto) Eos # (Auto) Baso # (Auto) Immature Gran # (Auto) Sodium 137 Potassium 3.5 Chloride 103 Carbon Dioxide 30 Anion Gap 4.0 BUN 17 Creatinine 0.66 Est Cr Clr Drug Dosing 77.7 Est GFR ( Amer) 113.7 Est GFR (Non-Af Amer) 98.1 BUN/Creatinine Ratio 25.4 H Glucose 77 POC Glucose 81 95 Calcium 8.8 Medications Administered Current Inpatient Medications Acetaminophen (Acetaminophen 325 Mg Tab) 650 mg PO Q4H PRN PRN Reason: pain/fever Stop: 12/30/20 16:41 Al Hydrox/Mg Hydrox/Simethicone (Aluminum/Magnesium Susp 30 Ml Udc) 30 ml PO Q6H PRN PRN Reason: Dyspepsia Stop: 12/30/20 16:41 Benzonatate (Benzonatate 100 Mg Capsule) 100 mg PO TID PRN PRN Reason: Cough Stop: 01/05/21 23:10 Last Admin: 12/07/20 08:13 Dose: 100 mg Documented by: Buspirone HCl (Buspirone 5 Mg Tab) 5 mg PO TID PRN PRN Reason: Anxiety Stop: 01/05/21 20:59 Last Admin: 12/09/20 09:57 Dose: 5 mg Documented by: Dextrose (Dextrose 50% 50 Ml Syringe) 25 - 50 ml IV UD PRN; Protocol PRN Reason: Hypoglycemia Protocol Stop: 01/02/21 16:14 Enoxaparin Sodium (Enoxaparin Inj 40 Mg/0.4 Ml Syr) 40 mg SQ BID [facility] Stop: 12/30/20 20:59 Last Admin: 12/14/20 08:40 Dose: 40 mg Documented by: Glucagon (Glucagon For Inj 1 Mg Vial) 1 mg SQ UD PRN; Protocol PRN Reason: Hypoglycemia Protocol Stop: 01/02/21 16:14 Glucose (Glucose 40% Gel 15 Gm Tube) 15 - 30 gm PO UD PRN; Protocol PRN Reason: Hypoglycemia Protocol Stop: 01/02/21 16:14 Glucose (Glucose 10 Tabs/Tube) 4 - 8 tabs PO UD PRN; Protocol PRN Reason: Hypoglycemia Protocol Stop: 01/02/21 16:14 Guaifenesin (Guaifenesin 600 Mg Tabcr) 1,200 mg PO Q12@0800,2000 [facility] Stop: 12/30/20 19:59 Last Admin: 12/14/20 08:39 Dose: 1,200 mg Documented by: Insulin Aspart (Insulin Aspart 100 Units/Ml 3 Ml Pen) 0 units SC ACHS [facility] Stop: 01/02/21 16:29 Last Admin: 12/14/20 09:29 Dose: 1 units Documented by: Insulin Glargine (Insulin Glargine Solostar 100 Units/Ml 3 Ml Pen) 16 units SC BID [facility] Stop: 01/02/21 20:59 Last Admin: 12/14/20 09:30 Dose: 16 units Documented by: Ipratropium [place] (Ipratropium [place] Neb Soln 0.02% 2.5 Ml Vial) 0.5 mg INH Q6R PRN PRN Reason: Shortness Of Breath Or Wheezing Stop: 01/06/21 00:59 Levalbuterol HCl (Levalbuterol 1.25mg/0.5ml Neb) 1.25 mg INH Q6R PRN PRN Reason: Shortness Of Breath Or Wheezing Stop: 01/06/21 00:59 Miscellaneous (Carbohydrates For Hypoglycemia ) 15 - 30 gm PO UD PRN PRN Reason: Hypoglycemia Treatment Stop: 01/02/21 16:14 Ondansetron HCl (Ondansetron Inj 2 Mg/Ml 2 Ml Vial) 4 mg IV Q6H PRN PRN Reason: Nausea Stop: 12/30/20 16:41 Pantoprazole Sodium (Pantoprazole 40 Mg Tab) [facility] Stop: 01/06/21 08:59 Last Admin: 12/14/20 08:41 Dose: 40 mg Documented by: Polyethylene Glycol (Polyethylene (Miralax) 17 Gm Pack) 17 gm PO DAILY PRN PRN Reason: Constipation Stop: 12/30/20 16:41 Last Admin: 12/08/20 12:59 Dose: 17 gm Documented by: Prednisone (Prednisone 20 Mg Tab) 20 mg PO QAM [facility] Stop: 01/13/21 08:59 Last Admin: 12/14/20 10:20 Dose: 20 mg Documented by: PG Care Time/CCT Total # of Minutes Spent Total Time Spent with Patient: Total time spent is greater than 50% in coordination of care (as documented) at patient's floor/unit and/or counseling patient: Coding Level of Care Code 00218 Subseq Hosp Care Lvl 2 Diagnoses Acute respiratory failure with hypoxia J96.01 Pneumonia due to COVID-19 virus U07.1; J12.82 Chest pain R07.9 Diabetes mellitus type 2, uncontrolled E11.65 Anxiety F41.9 Elevated AST (SGOT) R74.01 Tachycardia R00.0 Thrombocytosis D47.3 DVT prophylaxis Z29.9
[2020-12-15] MEDS: PANTOprazole 40 MG TAB PO SCH (08:58)
[2020-12-15] MEDS: ENOXAPARIN INJ 40 MG/0.4 ML SYR SQ SCH ×2 (08:58→20:48)
[2020-12-15] MEDS: predniSONE 20 MG TAB PO SCH (08:58)
[2020-12-15] MEDS: guaiFENesin 600 MG TABCR PO SCH ×2 (08:58→20:44)
[2020-12-15] MEDS: busPIRone 5 MG TAB PO PRN (09:24)
[2020-12-15] MEDS: INSULIN ASPART 100 UNITS/ML 3 ML PEN SC SCH ×4 (09:44→20:47)
[2020-12-15] MEDS: INSULIN GLARGINE SOLOSTAR 100 UNITS/ML 3 ML PEN SC SCH ×2 (09:45→20:45)
--- NOTE | 2020-12-15 21:04 | Hospitalist Progress Note ---
Date of Service December 15, 2020 Assessment & Plan (1) Acute respiratory failure with hypoxia: severe, 2nd to COVID-19 pneumonia. Much improved with prone positioning when tolerated making big improvements the past few days, all the way down to 3L today might be ready for two step tomorrow or Repeat CT angiogram chest on 12/06 shows now more consolidated bilateral lower lobe opacities -Continue with flutter valve, incentive spirometry, proning--> also strongly encouraged more ambulation around the room Completed decadron high-dose protocol-now on prednisone taper, 20mg daily continue albuterol, ipratropium inhalers prn -Wean off oxygen as able to -Continue 3-day course of Afrin nasal spray due to significant nasal congestion along with her nasal saline (2) Pneumonia due to COVID-19 virus: First symptoms on 11/15/2020. Outside of window for convalescent plasma or remdesivir. SEVERE disease with acute resp failure. Completed #10 days of IV dexamethasone - using high-dose protocol given severity of illness. Now on prednisone taper as she is still having significant hypoxia at 40 mg and will decrease by 10 mg every 2 days-decrease to 20mg on 12/14 go down to 10mg tomorrow With hypoxia as above s/p 5-day course of rocephin/zithromax to cover superimposed bacterial pneumonia as initial procal at admission was elevated (procal now normal). now off COVID airborne precautions (3) Chest pain: Had chest pain on 12/06 troponin - negative d-dimer - 4880 (higher than previous) sed rate >90 crp 2 and now down to 0.88 EKG - sinus tach, but no ST changes or elevation to suggest pericarditis or ischemia In light of high risk of PE - even despite lovenox for DVT proph - along with high d-dimer- obtained CTA chest. Negative for PE. No mention of pericardial effusion. With consolidated bilateral opacities c/w PNA Pain could be the COVID itself causing pleural irritation, mucous plugging, bronchospasm, reflux/esophageal irritation from high-dose steroids, anxiety, etc. doubt cardiac - no evidence of such. doubt musculoskeletal - no reproducibility on exam. Now resolved -continue bronchodilators prn -continue buspar 5mg TID prn anxiety -Continue on protonix 40mg daily in light of high-dose steroids and high risk of stress gastritis (4) Diabetes mellitus type 2, uncontrolled: new diagnosis this admission. a1c 6.8%. cont lantus cont novolog will need DM education, etc. suspect we can likely use metformin BID at discharge in lieu of insulin. (5) Anxiety: mod-severe. Did require Precedex drip while on high flow nasal cannula in the ICU started buspar 5mg tid prn. consider SSRI as well but pt says she does not want to take anything for it. long-standing issue (years). stable for several days, better the close she gets to discharge (6) Elevated AST (SGOT): 2nd COVID-19 infection -- now resolved. ALT wnl. (7) Tachycardia: SIRS vs anxiety vs pain vs combo of factors. Her heart rate is in the 50s while she sleeps CBC wnl. TSH low but FT4 normal with 5 beat run of NSVT on tele not symptomatic on one occasion and not concerning at this time follow on tele--> improving, rates are now lower (8) Thrombocytosis: Platelets peaked at 705 and now continue to improve, down to normal levels This is a reactive thrombocytosis due to inflammation Follow CBC occasionally She is on Lovenox twice daily (9) DVT prophylaxis: Lovenox with 40 mg SQ twice daily -- higher dose due to increase risk of VTE w/ COVID. PT, OT evals appreciated Dispo - likely ready to go home in 24-48 hours, plan for two step prior to discharge Admission and Anticipated Discharge Date Admission Date: November 30, 2020 Subjective patient continues to get better, all the way down to 3L by this evening she does not feel short of breath she worked with therapy today, gave her some exercises, she is working on them eating really well, moving her bowels, making urine no fever she is excited about possible discharge before the end of the week she wants to go home with her dad, discussed that he is getting better just as fast as her Review of Systems Review of Systems: All systems reviewed & are unremarkable except as noted in Subjective Physical Exam Constitutional: WD/WN, vitals as above Neck: trachea midline, no thyromegaly Respiratory: normal respiratory effort, lungs clear to auscultation Cardiovascular: RRR, no murmur, no edema Gastrointestinal (Abdomen): normal bowel sounds, soft, nontender, no hepatosplenomegaly Musculoskeletal: no cyanosis or clubbing, extremities motor strength 5/5 Skin: no rashes, warm and dry Neurologic: patellar DTR's 2+ bilat, sensation intact and PERRL, EOMI, accommo dation nl, no face palsy, no dysarthria Psychiatric: A+Ox3, euthymic affect Lymphatic: no cervical or axillary lymphadenopathy Results & Data Results & Data ([facility]) Vital Signs (Past 12 Hours) Vital Signs Temp Pulse Pulse Resp BP Pulse Ox 12/15/20 20:40 36.6 C 75 20 123/80 96 12/15/20 16:25 36.2 C L 82 17 111/73 97 12/15/20 16:00 99 H 12/15/20 12:01 36.7 C 97 H 17 109/66 95 Laboratory Results Laboratory Results - last 24 hr 12/15/20 12/15/20 12/15/20 07:55 11:56 16:22 POC Glucose 91 99 181 H 12/15/20 20:44 POC Glucose 106 H Medications Administered Current Inpatient Medications Acetaminophen (Acetaminophen 325 Mg Tab) 650 mg PO Q4H PRN PRN Reason: pain/fever Stop: 12/30/20 16:41 Al Hydrox/Mg Hydrox/Simethicone (Aluminum/Magnesium Susp 30 Ml Udc) 30 ml PO Q6H PRN PRN Reason: Dyspepsia Stop: 12/30/20 16:41 Benzonatate (Benzonatate 100 Mg Capsule) 100 mg PO TID PRN PRN Reason: Cough Stop: 01/05/21 23:10 Last Admin: 12/07/20 08:13 Dose: 100 mg Documented by: Buspirone HCl (Buspirone 5 Mg Tab) 5 mg PO TID PRN PRN Reason: Anxiety Stop: 01/05/21 20:59 Last Admin: 12/15/20 09:24 Dose: 5 mg Documented by: Dextrose (Dextrose 50% 50 Ml Syringe) 25 - 50 ml IV UD PRN; Protocol PRN Reason: Hypoglycemia Protocol Stop: 01/02/21 16:14 Enoxaparin Sodium (Enoxaparin Inj 40 Mg/0.4 Ml Syr) 40 mg SQ BID [facility] Stop: 12/30/20 20:59 Last Admin: 12/15/20 20:48 Dose: 40 mg Documented by: Glucagon (Glucagon For Inj 1 Mg Vial) 1 mg SQ UD PRN; Protocol PRN Reason: Hypoglycemia Protocol Stop: 01/02/21 16:14 Glucose (Glucose 40% Gel 15 Gm Tube) 15 - 30 gm PO UD PRN; Protocol PRN Reason: Hypoglycemia Protocol Stop: 01/02/21 16:14 Glucose (Glucose 10 Tabs/Tube) 4 - 8 tabs PO UD PRN; Protocol PRN Reason: Hypoglycemia Protocol Stop: 01/02/21 16:14 Guaifenesin (Guaifenesin 600 Mg Tabcr) 1,200 mg PO Q12@08,1999 [facility] Stop: 12/30/20 19:59 Last Admin: 12/15/20 20:44 Dose: 1,200 mg Documented by: Insulin Aspart (Insulin Aspart 100 Units/Ml 3 Ml Pen) 0 units SC ACHS [facility] Stop: 01/02/21 16:29 Last Admin: 12/15/20 20:47 Dose: Not Given Documented by: Insulin Glargine (Insulin Glargine Solostar 100 Units/Ml 3 Ml Pen) 16 units SC BID [facility] Stop: 01/02/21 20:59 Last Admin: 12/15/20 20:45 Dose: 16 units Documented by: Ipratropium [place] (Ipratropium [place] Neb Soln 0.02% 2.5 Ml Vial) 0.5 mg INH Q6R PRN PRN Reason: Shortness Of Breath Or Wheezing Stop: 01/06/21 00:59 Levalbuterol HCl (Levalbuterol 1.25mg/0.5ml Neb) 1.25 mg INH Q6R PRN PRN Reason: Shortness Of Breath Or Wheezing Stop: 01/06/21 00:59 Miscellaneous (Carbohydrates For Hypoglycemia ) 15 - 30 gm PO UD PRN PRN Reason: Hypoglycemia Treatment Stop: 01/02/21 16:14 Ondansetron HCl (Ondansetron Inj 2 Mg/Ml 2 Ml Vial) 4 mg IV Q6H PRN PRN Reason: Nausea Stop: 12/30/20 16:41 Pantoprazole Sodium (Pantoprazole 40 Mg Tab) 40 mg PO QAM [facility] Stop: 01/06/21 08:59 Last Admin: 12/15/20 08:58 Dose: 40 mg Documented by: Polyethylene Glycol (Polyethylene (Miralax) 17 Gm Pack) 17 gm PO DAILY PRN PRN Reason: Constipation Stop: 12/30/20 16:41 Last Admin: 12/08/20 12:59 Dose: 17 gm Documented by: Prednisone (Prednisone 20 Mg Tab) 20 mg PO QAM [facility] Stop: 01/13/21 08:59 Last Admin: 12/15/20 08:58 Dose: 20 mg Documented by: PG Care Time/CCT Total # of Minutes Spent Total Time Spent with Patient: Total time spent is greater than 50% in coordination of care (as documented) at patient's floor/unit and/or counseling patient: Coding Level of Care Code 32083 Subseq Hosp Care Lvl 2 Diagnoses Acute respiratory failure with hypoxia J96.01 Pneumonia due to COVID-19 virus U07.1; J12.82 Chest pain R07.9 Diabetes mellitus type 2, uncontrolled E11.65 Anxiety F41.9 Elevated AST (SGOT) R74.01 Tachycardia R00.0 Thrombocytosis D47.3 DVT prophylaxis Z29.9
[2020-12-16] MEDS: ENOXAPARIN INJ 40 MG/0.4 ML SYR SQ SCH ×2 (08:33→22:12)
[2020-12-16] MEDS: guaiFENesin 600 MG TABCR PO SCH ×2 (08:33→22:13)
[2020-12-16] MEDS: PANTOprazole 40 MG TAB PO SCH (08:34)
[2020-12-16] MEDS: INSULIN ASPART 100 UNITS/ML 3 ML PEN SC SCH ×4 (08:34→20:25)
[2020-12-16] MEDS: predniSONE 10 MG TABLET PO SCH (08:34)
[2020-12-16] MEDS: INSULIN GLARGINE SOLOSTAR 100 UNITS/ML 3 ML PEN SC SCH ×2 (08:37→22:12)
--- NOTE | 2020-12-16 22:54 | Hospitalist Progress Note ---
Date of Service December 16, 2020 Assessment & Plan (1) Acute respiratory failure with hypoxia: severe, 2nd to COVID-19 pneumonia. Much improved with prone positioning when tolerated making big improvements the past few days, all the way down to room air this evening plan for two step tomorrow Repeat CT angiogram chest on 12/06 shows now more consolidated bilateral lower lobe opacities -Continue with flutter valve, incentive spirometry, proning--> also strongly encouraged more ambulation around the room Completed decadron high-dose protocol-now on prednisone taper, 10mg daily continue albuterol, ipratropium inhalers prn -Wean off oxygen as able to, down to room air this evening -Continue 3-day course of Afrin nasal spray due to significant nasal congestion along with her nasal saline (2) Pneumonia due to COVID-19 virus: First symptoms on 11/15/2020. Outside of window for convalescent plasma or remdesivir. SEVERE disease with acute resp failure. Completed #10 days of IV dexamethasone - using high-dose protocol given severity of illness. Now on prednisone taper as she is still having significant hypoxia at 40 mg and will decrease by 10 mg every 2 days-decrease to 20mg on 12/14 go down to 10mg today With hypoxia as above s/p 5-day course of rocephin/zithromax to cover superimposed bacterial pneumonia as initial procal at admission was elevated (procal now normal). now off COVID airborne precautions down to room air today (3) Chest pain: Had chest pain on 12/06 troponin - negative d-dimer - 4880 (higher than previous) sed rate >90 crp 2 and now down to 0.88 EKG - sinus tach, but no ST changes or elevation to suggest pericarditis or ischemia In light of high risk of PE - even despite lovenox for DVT proph - along with high d-dimer- obtained CTA chest. Negative for PE. No mention of pericardial effusion. With consolidated bilateral opacities c/w PNA Pain could be the COVID itself causing pleural irritation, mucous plugging, bronchospasm, reflux/esophageal irritation from high-dose steroids, anxiety, etc. doubt cardiac - no evidence of such. doubt musculoskeletal - no reproducibility on exam. Now resolved -continue bronchodilators prn -continue buspar 5mg TID prn anxiety -Continue on protonix 40mg daily in light of high-dose steroids and high risk of stress gastritis (4) Diabetes mellitus type 2, uncontrolled: new diagnosis this admission. a1c 6.8%. cont lantus cont novolog will need DM education, etc. suspect we can likely use metformin BID at discharge in lieu of insulin. (5) Anxiety: mod-severe. Did require Precedex drip while on high flow nasal cannula in the ICU started buspar 5mg tid prn. consider SSRI as well but pt says she does not want to take anything for it. long-standing issue (years). stable for several days, better the close she gets to discharge (6) Elevated AST (SGOT): 2nd COVID-19 infection -- now resolved. ALT wnl. (7) Tachycardia: SIRS vs anxiety vs pain vs combo of factors. Her heart rate is in the 50s while she sleeps CBC wnl. TSH low but FT4 normal with 5 beat run of NSVT on tele not symptomatic on one occasion and not concerning at this time follow on tele--> improving, rates are now lower (8) Thrombocytosis: Platelets peaked at 705 and now continue to improve, down to normal levels This is a reactive thrombocytosis due to inflammation Follow CBC occasionally She is on Lovenox twice daily (9) DVT prophylaxis: Lovenox with 40 mg SQ twice daily -- higher dose due to increase risk of VTE w/ COVID. PT, OT evals appreciated Dispo - likely ready to go home in 24-48 hours, plan for two step prior to discharge Admission and Anticipated Discharge Date Admission Date: November 30, 2020 Subjective patient feeling great, down to 2L she is eating well, moving her bowels, making urine, no fever/chills vitals stable discussed that we will get 2 step tomorrow and plan to go home she is excited Review of Systems Review of Systems: All systems reviewed & are unremarkable except as noted in Subjective Physical Exam Constitutional: WD/WN, vitals as above Neck: trachea midline, no thyromegaly Respiratory: normal respiratory effort, lungs clear to auscultation Cardiovascular: RRR, no murmur, no edema Gastrointestinal (Abdomen): normal bowel sounds, soft, nontender, no hepatosplenomegaly Musculoskeletal: no cyanosis or clubbing, extremities motor strength 5/5 Skin: no rashes, warm and dry Neurologic: patellar DTR's 2+ bilat, sensation intact and PERRL, EOMI, accommodation nl, no face palsy, no dysarthria Psychiatric: A+Ox3, euthymic affect Lymphatic: no cervical or axillary lymphadenopathy Results & Data Results & Data ([facility]) Vital Signs (Past 12 Hours) Vital Signs Temp Pulse Pulse Resp BP Pulse Ox 12/16/20 19:06 36.8 C 92 H 18 101/68 93 12/16/20 15:04 37.0 C 87 19 106/71 93 12/16/20 15:00 88 12/16/20 13:56 92 12/16/20 11:52 36.8 C 83 19 106/66 95 12/16/20 11:31 36.7 C 81 20 119/71 94 Laboratory Results Laboratory Results - last 24 hr 12/16/20 12/16/20 12/16/20 07:19 11:33 16:08 POC Glucose 78 84 136 H 12/16/20 20:06 POC Glucose 102 H Medications Administered Current Inpatient Medications Acetaminophen (Acetaminophen 325 Mg Tab) 650 mg PO Q4H PRN PRN Reason: pain/fever Stop: 12/30/20 16:41 Al Hydrox/Mg Hydrox/Simethicone (Aluminum/Magnesium Susp 30 Ml Udc) 30 ml PO Q6H PRN PRN Reason: Dyspepsia Stop: 12/30/20 16:41 Benzonatate (Benzonatate 100 Mg Capsule) 100 mg PO TID PRN PRN Reason: Cough Stop: 01/05/21 23:10 Last Admin: 12/07/20 08:13 Dose: 100 mg Documented by: Buspirone HCl (Buspirone 5 Mg Tab) 5 mg PO TID PRN PRN Reason: Anxiety Stop: 01/05/21 20:59 Last Admin: 12/15/20 09:24 Dose: 5 mg Documented by: Dextrose (Dextrose 50% 50 Ml Syringe) 25 - 50 ml IV UD PRN; Protocol PRN Reason: Hypoglycemia Protocol Stop: 01/02/21 16:14 Enoxaparin Sodium (Enoxaparin Inj 40 Mg/0.4 Ml Syr) 40 mg SQ BID SANJAY Stop: 12/30/20 20:59 Last Admin: 12/16/20 22:12 Dose: 40 mg Documented by: Glucagon (Glucagon For Inj 1 Mg Vial) 1 mg SQ UD PRN; Protocol PRN Reason: Hypoglycemia Protocol Stop: 01/02/21 16:14 Glucose (Glucose 40% Gel 15 Gm Tube) 15 - 30 gm PO UD PRN; Protocol PRN Reason: Hypoglycemia Protocol Stop: 01/02/21 16:14 Glucose (Glucose 10 Tabs/Tube) 4 - 8 tabs PO UD PRN; Protocol PRN Reason: Hypoglycemia Protocol Stop: 01/02/21 16:14 Guaifenesin (Guaifenesin 600 Mg Tabcr) 1,200 mg PO Q12@0800,2000 [facility] Stop: 12/30/20 19:59 Last Admin: 12/16/20 22:13 Dose: 1,200 mg Documented by: Insulin Aspart (Insulin Aspart 100 Units/Ml 3 Ml Pen) 0 units SC ACHS [facility] Stop: 01/02/21 16:29 Last Admin: 12/16/20 20:25 Dose: Not Given Documented by: Insulin Glargine (Insulin Glargine Solostar 100 Units/Ml 3 Ml Pen) 16 units SC BID [facility] Stop: 01/02/21 20:59 Last Admin: 12/16/20 22:12 Dose: 16 units Documented by: Ipratropium Crescent (Ipratropium Crescent Neb Soln 0.02% 2.5 Ml Vial) 0.5 mg INH Q6R PRN PRN Reason: Shortness Of Breath Or Wheezing Stop: 01/06/21 00:59 Levalbuterol HCl (Levalbuterol 1.25mg/0.5ml Neb) 1.25 mg INH Q6R PRN PRN Reason: Shortness Of Breath Or Wheezing Stop: 01/06/21 00:59 Miscellaneous (Carbohydrates For Hypoglycemia ) 15 - 30 gm PO UD PRN PRN Reason: Hypoglycemia Treatment Stop: 01/02/21 16:14 Ondansetron HCl (Ondansetron Inj 2 Mg/Ml 2 Ml Vial) 4 mg IV Q6H PRN PRN Reason: Nausea Stop: 12/30/20 16:41 Pantoprazole Sodium (Pantoprazole 40 Mg Tab) 40 mg PO QAM [facility] Stop: 01/06/21 08:59 Last Admin: 12/16/20 08:34 Dose: 40 mg Documented by: Polyethylene Glycol (Polyethylene (Miralax) 17 Gm Pack) 17 gm PO DAILY PRN PRN Reason: Constipation Stop: 12/30/20 16:41 Last Admin: 12/08/20 12:59 Dose: 17 gm Documented by: Prednisone (Prednisone 10 Mg Tablet) 10 mg PO QAM [facility] Stop: 01/15/21 08:59 Last Admin: 12/16/20 08:34 Dose: 10 mg Documented by: PG Care Time/CCT Total # of Minutes Spent Total Time Spent with Patient: Total time spent is greater than 50% in coordination of care (as documented) at patient's floor/unit and/or counseling patient: Coding Level of Care Code 07559 Subseq Hosp Care Lvl 2 Diagnoses Acute respiratory failure with hypoxia J96.01 Pneumonia due to COVID-19 virus U07.1; J12.82 Chest pain R07.9 Diabetes mellitus type 2, uncontrolled E11.65 Anxiety F41.9 Elevated AST (SGOT) R74.01 Tachycardia R00.0 Thrombocytosis D47.3 DVT prophylaxis Z29.9
[2020-12-17] MEDS: INSULIN ASPART 100 UNITS/ML 3 ML PEN SC SCH ×2 (08:34→12:10)
[2020-12-17] MEDS: INSULIN GLARGINE SOLOSTAR 100 UNITS/ML 3 ML PEN SC SCH (08:36)
[2020-12-17] MEDS: ENOXAPARIN INJ 40 MG/0.4 ML SYR SQ SCH (08:36)
[2020-12-17] MEDS: PANTOprazole 40 MG TAB PO SCH (08:37)
[2020-12-17] MEDS: guaiFENesin 600 MG TABCR PO SCH (08:37)
[2020-12-17] MEDS: predniSONE 10 MG TABLET PO SCH (08:37)
[2020-12-17] MEDS: busPIRone 5 MG TAB PO PRN ×2 (08:40→14:05)
--- NOTE | 2020-12-17 14:01 | Discharge Summary ---
Date of Service December 17, 2020 Admission HPI Per Admitting Provider Terri Montague is a 54-year-old female who presents to the ER with shortness of breath, fatigue, generalized muscle aches, nausea and productive cough. She tested positive on November 17 and is mainly here to bring her father who is also Covid positive but wanted to be seen to as she has just not been getting better. Mainly short of breath on exertion and has not been able to do her usual activities around the house. However she does note she is improved since this time last week. She has not been measuring her oxygen saturations at home. Symptoms include shortness of breath (mainly on exertion), productive cough, poor appetite, diarrhea, myalgias, fatigue. She denies any nausea, vomiting, nasal congestion, confusion, chest or abdominal pain. In the ER SARS-CoV-2 PCR positive. D-dimer elevated at [address] angiogram which showed no pulmonary embolism but extensive bilateral groundglass pulmonary opacities consistent with multifocal pneumonia. Principal Diagnosis COVID 19 pneumonia with acute hypoxic respiratory failure Discharge Exam Constitutional WD/WN, vitals as above Neck trachea midline, no thyromegaly Respiratory normal respiratory effort, lungs clear to auscultation Cardiovascular RRR, no murmur, no edema Gastrointestinal (Abdomen) normal bowel sounds, soft, nontender, no hepatosplenomegaly Musculoskeletal no cyanosis or clubbing, extremities motor strength 5/5 Skin no rashes, warm and dry Neurologic patellar DTR's 2+ bilat, sensation intact and PERRL, EOMI, accommodation nl, no face palsy, no dysarthria Psychiatric A+Ox3, euthymic affect Lymphatic no cervical or axillary lymphadenopathy Discharge Data Allergies Allergy/AdvReac Type Severity Reaction Status Date / Time No Known Allergies Allergy Verified 11/30/20 11:17 Consultations 11/30/20 12:42 ED Decision to Admit Stat 12/03/20 09:33 Consult Palliative Care Routine 12/03/20 11:07 Consult Machinist Supervisor Outside Stat Ordered Studies 11/30/20 12:30 CT angio chest PE protocol Stat 12/06/20 19:05 CT angio chest PE protocol Urgent Hospital Course (1) Acute respiratory failure with hypoxia: severe, 2nd to COVID-19 pneumonia. Much improved with prone positioning when tolerated making big improvements the past few days 2 step on day of discharge, needed 2L at rest and 6L on exertion (2) Pneumonia due to COVID-19 virus: First symptoms on 11/15/2020. Outside of window for convalescent plasma or remdesivir. SEVERE disease with acute resp failure. Completed #10 days of IV dexamethasone - using high-dose protocol given severity of illness. Now on prednisone taper as she is still having significant hypoxia at 40 mg and will decrease by 10 mg every 2 days-decrease to 20mg on 12/14 go down to 10mg past two days and now none With hypoxia as above s/p 5-day course of rocephin/zithromax to cover superimposed bacterial pneumonia as initial procal at admission was elevated (procal now normal). now off COVID airborne precautions down to 2L at rest, 6L on exertion, will go home (3) Chest pain: Had chest pain on 12/06 troponin - negative, EKG normal resolved quickly likely from coughing (4) Diabetes mellitus type 2, uncontrolled: new diagnosis this admission. a1c 6.8%. cont lantus cont novolog will need DM education, etc. will start on Metformin 500mg BID on discharge (5) Anxiety: mod-severe. Did require Precedex drip while on high flow nasal cannula in the ICU started buspar 5mg tid prn. consider SSRI as well but pt says she does not want to take anything for it. long-standing issue (years). stable for several days, better the close she gets to discharge (6) Elevated AST (SGOT): 2nd COVID-19 infection -- now resolved. ALT wnl. (7) Tachycardia: SIRS vs anxiety vs pain vs combo of factors. Her heart rate is in the 50s while she sleeps CBC wnl. TSH low but FT4 normal with 5 beat run of NSVT on tele not symptomatic on one occasion and not concerning at this time follow on tele--> improving, rates are now lower (8) Thrombocytosis: Platelets peaked at 705 and now continue to improve, down to normal levels This is a reactive thrombocytosis due to inflammation Follow CBC occasionally She is on Lovenox twice daily (9) DVT prophylaxis: Lovenox with 40 mg SQ twice daily -- higher dose due to increase risk of VTE w/ COVID. PT, OT evals appreciated Dispo - discharge to home on oxygen Total Time Total Time Spent Total Time Spent (In Minutes): 34 Total Time Includes: Examination of the Patient, Discharge Planning and Medication Reconciliation Discharge Plan Discharge Items Patient Disposition: Home - Self-Care Reason For Visit: COVID-19 PNEUMONIA HYPOXIA Discharge Diagnosis: COVID 19 pneumonia Acute hypoxic respiratory failure Condition on Discharge: Good Goals: titrate down off oxygen slowly stay well hydrated, well nourished, well rested increase activity as tolerated Activity: Resume your previous activity Exercise/Sports: Gradually increase as tolerated Weightbearing: Full weightbearing Non-emergency contact: Primary Care Provider Call non-emergency contact if: you have any medication questions and your symptoms worsen Follow-up/Referrals: Oswaldo Victoria [Primary Care Provider] - 12/22/20 1:30 pm (one week) Diet: Carb Consistent or DM2 Addtl Attending Provider Instructions: Medications: - METFORMIN: start for diabetes, take twice a day, can cause some GI side effects like loose stools but should resolve over time - BUSPAR: 5MG three times a day as needed for anxiety OXYGEN: you qualify to use 2L at rest and 6L on exertion anticipate that you will need some oxygen for a few weeks as your lungs recover whenever you are planning on walking, turn up the oxygen to 6L about 30 seconds before hand and then walk keep activity light for the first week, slowly increase activity/duration as tolerated stay well nourished, well hydrated, well rested no need for quarantine as you are well outside the contagious time period Pending Studies at Discharge: No Stand-Alone Forms: My [employer], Smoking Cessation Medications and DC Order Prescriptions: New buspirone 5 mg Tablet 5 mg PO TID PRN (Reason: anxiety) 14 Days Qty: 60 RF: 0 metformin 500 mg tablet 500 mg PO BID Qty: 60 RF: 3 Continued acetaminophen [Tylenol Extra Strength] 500 mg Tablet 500 mg PO Q6H PRN (Reason: Pain) RF: 0 Immune Support Complex 75 mg Tablet 2 tab PO UD RF: 0 Discharge Orders: Discharge Order (Routine); Ordered 12/17/20 Ordered By: Malcolm Degroot/Other Patient Handouts: 5 Steps for Eating Healthier, If Oxygen Is Prescribed, A1C Admission Data Admit Date/Time: 11/30/20 13:51 Attending Provider: Malcolm Giordano Admit Provider: Alan Hui Primary Care Provider: Oswaldo Victoria Other Providers: Brent Ramirez ; Alan Hui ; Sabi Lai ; Oswaldo Carrillo Other Interventions: Discharge Summary Assessment (RN) Last Done: 12/17/20 14:20 Coding Level of Care Code D/C Day Management >30 mins Diagnoses Acute respiratory failure with hypoxia J96.01 Pneumonia due to COVID-19 virus U07.1; J12.82 Chest pain R07.9 Diabetes mellitus type 2, uncontrolled E11.65 Anxiety F41.9 Elevated AST (SGOT) R74.01 Tachycardia R00.0 Thrombocytosis D47.3 DVT prophylaxis Z29.9
== END 2020-12-17 16:35 | disposition home or self-care (01) | DRG 177 ==
LOC: ED 10:43 → SUATTDRO 13:51 → 3W 13:51 → 3N 21:51 → 1E 12-03 10:41 → 2S 12-06 12:48